=== PATIENT | male | born 1935 | race Caucasian/White ===

== ENCOUNTER 2022-01-20 20:04 | Emergency (ER) | payer MEDICARE, SELFPAY ==
[2022-01-20] VITALS (13 sets, daily range): BP systolic 110–139; BP diastolic 44–118; PULSE 60–83; RESP 17–27; TEMP 37.2; O2SAT 93–100
--- NOTE | ~2022-01-20 | XR_ITS ---
EXAMINATION: XR chest 1V portable Exam Date/Time: 01/20/2022 20:20 CDT HISTORY: cough Comparison: None available. RESULT: Lines, tubes, and devices: Cervical fusion hardware. Intact sternotomy wires. Atrial occlusion devic e. Left chest pacer with intact leads. Lungs and pleura: Ill-defined vascular margins with peripheral reticular opacities. Moderate right p leural effusion. Cardiomediastinal silhouette: Stable cardiomediastinal silhouette. Other: No acute osseous or upper abdominal finding. IMPRESSION: Pulmonary findings likely represent edema. Infection not excluded. Moderate right pleural effusion. Reviewed, dictated and finalized at location K. IMPRESSION: Pulmonary findings likely represent edema. Infection not excluded. Moderate rig ht pleural effusion.
--- NOTE | ~2022-01-20 | XR_ITS ---
EXAM: XR knee LT 3V DATE: 01/20/2022 20:29 HISTORY: pain . COMPARISON: None available. FINDINGS: Decreased mineralization. No fracture or dislocation. No lytic or blastic lesion. Tricompa rtmental osteoarthritis, severe in the medial compartment. No erosion or periosteal change. Surgical clips likely from vein harvesting. Diffuse vascular calcification. IMPRESSION: No acute osseous finding in the left knee. Reviewed, dictated and finalized at location K.
--- NOTE | ~2022-01-20 | XR_ITS ---
EXAMINATION: XR foot LT min 3V DATE: 01/20/2022 22:01 INDICATION: Left foot pain TECHNIQUE: Dorsoplantar, lateral, and 2 oblique views of the left foot were obtained. COMPARISON: None. FINDINGS: There is no fracture, dislocation, or subluxation. Calcified atherosclerosis is noted. Ther e is a plantar calcaneal enthesophyte. IMPRESSION: 1. No acute osseous abnormality. Reviewed, dictated and finalized at location A.
--- NOTE | 2022-01-20 20:12 | ECG_ITS ---
Measurements Intervals [place] Rate: 60 P: 60 WI: 174 QRS: 78 QRSD: 173 T: 102 QT: 497 QTc: 500 Interpretive Statements ELECTRONIC AV SEQUENTIAL PACEMAKER ABNORMAL RHYTHM ECG NO PREVIOUS ECG AVAILABLE FOR COMPARISON Electronically Signed On 01-21-2022 7:12:19 CDT by Misha Babb M.D.
--- NOTE | 2022-01-20 20:16 | ED.GENADULT ---
HPI - General Adult General Chief complaint: Weakness Stated complaint: Covid + today weakness Time Seen by Provider: 01/20/22 20:11 History of Present Illness HPI narrative: Patient is an 86-year-old gentleman who presents to the emergency department with chief complaint of weakness. Patient states that he has normal knee pain in the left knee and he has no gave out and he fell to the ground. Patient denies striking his head denies loss of consciousness reports that he could not get up afterwards and EMS was called. Patient incidentally today was tested for COVID-19 and was positive for COVID-19. Patient denies chest pain denies shortness of breath denies vomiting diarrhea. Related Data Allergies Allergy/AdvReac Type Severity Reaction Status Date / Time Penicillins Allergy Rash Verified 01/20/22 20:28 Review of Systems Review of Systems: A 10 system review of systems was completed on the patient and is negative except for what is stated in the HPI. Nursing and ancillary documentation was reviewed. PMFSH Comments History of cardiac bypass, history of pacemaker, right knee replacement History of cardiac disease Exam Narrative: GENERAL: Well-appearing, well-nourished, and in no acute distress. HEAD: Normocephalic, atraumatic. EYES: PERRLA and EOMI. ENT: Nares clear, no rhinorrhea or epistaxis. Mucous membranes moist. NECK: Supple. CHEST: Clear to auscultation. No respiratory distress. HEART: Regular rate and rhythm. No murmur heard. Normal peripheral pulses. ABDOMEN: Soft, nontender, nondistended, normal active bowel sounds. EXTREMITIES: Normal range of motion. No edema. SKIN: Warm, dry, no rash. NEURO: No focal deficits. Alert and oriented x3. PSYCH: Normal mood and affect. Course Vital Signs Vital signs: Vital Signs Temperature 37.2 C 01/20/22 20:09 Pulse Rate 76 01/20/22 20:09 Respiratory Rate 23 H 01/20/22 20:09 Blood Pressure 135/55 L 01/20/22 20:09 Pulse Oximetry 97 01/20/22 20:09 Oxygen Delivery Room Air 01/20/22 20:09 Temperature 37.2 C 01/20/22 20:09 Pulse Rate 72 01/20/22 22:07 Respiratory Rate 18 01/20/22 22:07 Blood Pressure 110/70 01/20/22 22:07 Pulse Oximetry 98 01/20/22 22:07 Oxygen Delivery Room Air 01/20/22 20:09 Medical Decision Making Vital Signs Vital Signs: Vital Signs Temperature 37.2 C 01/20/22 20:09 Pulse Rate 76 01/20/22 20:09 Respiratory Rate 23 H 01/20/22 20:09 Blood Pressure 135/55 L 01/20/22 20:09 Pulse Oximetry 97 01/20/22 20:09 Oxygen Delivery Room Air 01/20/22 20:09 Temperature 37.2 C 01/20/22 20:09 Pulse Rate 72 01/20/22 22:07 Respiratory Rate 18 01/20/22 22:07 Blood Pressure 110/70 01/20/22 22:07 Pulse Oximetry 98 01/20/22 22:07 Oxygen Delivery Room Air 01/20/22 20:09 Lab Data Result diagrams: 01/20/22 20:40 01/20/22 20:40 Labs: Lab Results 01/20/22 01/20/22 01/20/22 Range/Units 20:35 20:40 20:40 WBC 7.4 (4.5-10.0) K/mm3 RBC 3.34 L (4.6-6.20) M/mm3 Hgb 10.1 L (14.0-18.0) g/dL Hct 30.9 L (42.0-52.0) % MCV 92.5 (80-100) fl MCH 30.2 (26-34) pg MCHC 32.7 (32-36) g/dl RDW 17.3 H (11.5-14.5) % Plt Count 184 (150-375) k/mm3 MPV 9.4 (7.4-10.4) fl Immature Gran % (Auto) 0.3 (0-0.5) % Neut % (Auto) 75.6 H (45.5-73.1) % Lymph % (Auto) 6.7 L (18.3-44.2) % Jenkins % (Auto) 14.7 H (2.6-8.5) % Eos % (Auto) 2.0 (0-4.4) % Baso % (Auto) 0.7 (0.2-1.2) % Lymph # (Auto) 0.49 L (0.9-3.2) K/mm3 Jenkins # (Auto) 1.1 H (0.1-0.6) K/mm3 Eos # (Auto) 0.2 (0-0.3) K/mm3 Baso # (Auto) 0.1 (0.0-0.1) K/mm3 Abs Immat Gran (auto) 0.02 (0.00-0.031) K/mm3 Absolute Neuts (auto) 5.6 (1.3-6.7) K/mm3 Absolute Nucleated RBC 0.0 (0.0-0.012) K/mm3 Nucleated RBC % 0.0 (0.0-0.2) % Sodium (137-145) mmol/L Potassium (3.4-5.0) mmol/L Chloride (98-
[2022-01-20] MEDS: SODIUM CHLORIDE 0.9% IV 1,000 ML 250 ML IV CONT (20:56)
[2022-01-20 21:01] LABS: Appearance Urine Clear (Clear); Basophils Absolute Auto 0.1 K/mm3 (0.0-0.1); Basophils Percent Auto 0.7 % (0.2-1.2); Bilirubin Urine Negative (Negative); Blood Urine Negative (Negative); Color Urine Yellow (Yellow); Eosinophils Absolute Auto 0.2 K/mm3 (0-0.3); Glucose Urine UA Negative (Negative); Hematocrit 30.9 % (42.0-52.0); Hemoglobin 10.1 g/dL (14.0-18.0); Immature Granulocyte Absolute 0.02 K/mm3 (0.00-0.031); Immature Granulocyte Percent A 0.3 % (0-0.5); Ketones Urine Negative (Negative); Leukocyte Esterase Ur Negative LEU/UL (Negative); Lymphocytes Absolute Auto 0.49 K/mm3 (0.9-3.2); Lymphocytes Percent Auto 6.7 % (18.3-44.2); Mean Corpuscular HGB Conc 32.7 g/dl (32-36); Mean Corpuscular Hemoglobin 30.2 pg (26-34); Mean Corpuscular Volume 92.5 fl (80-100); Mean Platelet Volume 9.4 fl (7.4-10.4); Monocytes Absolute Auto 1.1 K/mm3 (0.1-0.6); Monocytes Percent Auto 14.7 % (2.6-8.5); Neutrophils Absolute Auto 5.6 K/mm3 (1.3-6.7); Neutrophils Percent Auto 75.6 % (45.5-73.1); Nitrate Urine Negative (Negative); Platelet Count Result 184 k/mm3 (150-375); Protein Urine Negative (Negative); Red Blood Count 3.34 M/mm3 (4.6-6.20); Red Cell Distribution Width 17.3 % (11.5-14.5); Urobilinogen Urine 0.2 mg/dL (<2.0); White Blood Count 7.4 K/mm3 (4.5-10.0); pH Urine 5.5 (5.0-9.0)
[2022-01-20 21:06] LABS: RBC Urine 0-2 /hpf (0-2); WBC Urine 0-3 /hpf
[2022-01-20 21:07] LABS: Add Urine Microscopic? NO
[2022-01-20 21:10] LABS: Alanine Aminotransferase 18 U/L (6-50); Albumin Level 3.8 g/dL (3.5-5.1); Alkaline Phosphatase 84 U/L (38-126); Anion Gap 7 mmol/L (8-16); Aspartate Amino Transferase 25 U/L (17-59); Bilirubin,Total 0.4 mg/dL (0.2-1.3); Blood Urea Nitrogen 23 mg/dL (9-20); Calcium 8.1 mg/dL (8.4-10.2); Carbon Dioxide 25 mmol/L (22-30); Chloride 100 mmol/L (98-107); Estimated CRCL calculation 42 ml/min; Estimated Glomerular Filt Rate 53; Glucose 113 mg/dL (65-110); Magnesium 1.7 mg/dL (1.6-2.3); Potassium 4.6 mmol/L (3.4-5.0); Sodium 132 mmol/L (137-145)
[2022-01-20 21:11] LABS: Lactic Acid Reflex 1.4 mmol/L (0.7-2.0)
--- NOTE | 2022-01-20 21:54 | PC.NURSE ---
Pt able to get up out of bed unassisted using walker. Denies feeling lightheaded or dizziness. No s/s of distress, no complaints. ED MD Camejo notified.
[2022-01-20 21:57] LABS: NT Pro B Type Natriuretic Pept 4730 pg/mL (5-100); Troponin I < 0.012 ng/mL (0.000-0.034)
== END 2022-01-20 23:00 | disposition home or self-care (01) ==
PROVIDERS: Emergency Provider Emergency Medicine
DX: U07.1 COVID-19 (principal); I51.9 Heart disease, unspecified; Z96.651 Presence of right artificial knee joint; Z95.0 Presence of cardiac pacemaker; R94.31 Abnormal electrocardiogram [ECG] [EKG]; Z95.1 Presence of aortocoronary bypass graft; W18.39XA Other fall on same level, initial encounter
CPT/HCPCS: 36415; 51701; 71045; 73562; 73630; 80053; 81003; 83605; 83735; 83880; 84484; 85025; 93005; 96360; 96361; 99284; J7030

== ENCOUNTER 2022-01-24 16:18 | Outpatient (CLI) | payer MEDICARE, SELFPAY ==
[2022-01-24 16:47] LABS: Hematocrit 32.5 % (42.0-52.0); Hemoglobin 10.9 g/dL (14.0-18.0); Mean Corpuscular HGB Conc 33.5 g/dl (32-36); Mean Corpuscular Hemoglobin 30.5 pg (26-34); Mean Platelet Volume 9.7 fl (7.4-10.4); Platelet Count Result 142 k/mm3 (150-375); Red Blood Count 3.57 M/mm3 (4.6-6.20); Red Cell Distribution Width 17.2 % (11.5-14.5); White Blood Count 4.2 K/mm3 (4.5-10.0)
[2022-01-24 16:55] LABS: Anion Gap 8 mmol/L (8-16); Blood Urea Nitrogen 22 mg/dL (9-20); Calcium 7.9 mg/dL (8.4-10.2); Carbon Dioxide 28 mmol/L (22-30); Chloride 99 mmol/L (98-107); Estimated Glomerular Filt Rate 53; Glucose 77 mg/dL (65-110); Potassium 4.3 mmol/L (3.4-5.0); Sodium 135 mmol/L (137-145)
== END 2022-01-24 16:19 | disposition home or self-care (01) ==
LOC: ANHLAB 16:22
DX: D64.9 Anemia, unspecified (principal)
CPT/HCPCS: 36415; 80048; 85027

== ENCOUNTER 2022-02-03 10:56 | Outpatient (CLI) | payer MEDICARE, SELFPAY ==
[2022-02-03 11:33] LABS: Hematocrit 33.7 % (42.0-52.0); Hemoglobin 10.7 g/dL (14.0-18.0); Mean Corpuscular HGB Conc 31.8 g/dl (32-36); Mean Corpuscular Hemoglobin 29.3 pg (26-34); Mean Corpuscular Volume 92.3 fl (80-100); Mean Platelet Volume 9.9 fl (7.4-10.4); Platelet Count Result 212 k/mm3 (150-375); Red Blood Count 3.65 M/mm3 (4.6-6.20); White Blood Count 6.5 K/mm3 (4.5-10.0)
[2022-02-03 11:46] LABS: INR 1.9; Prothrombin Time 20.8 Seconds (11.1-14.7)
== END 2022-02-03 10:57 | disposition home or self-care (01) ==
LOC: ANHLAB 11:02
DX: I48.92 Unspecified atrial flutter (principal); I48.91 Unspecified atrial fibrillation
CPT/HCPCS: 36415; 85027; 85610

== ENCOUNTER 2022-02-20 13:17 | Outpatient (CLI) | payer MEDICARE, SELFPAY ==
[2022-02-20 13:46] LABS: Anion Gap 8 mmol/L (8-16); Blood Urea Nitrogen 17 mg/dL (9-20); Calcium 8.1 mg/dL (8.4-10.2); Carbon Dioxide 27 mmol/L (22-30); Chloride 104 mmol/L (98-107); Estimated Glomerular Filt Rate 58; Glucose 71 mg/dL (65-110); Sodium 139 mmol/L (137-145)
== END 2022-02-20 13:18 | disposition home or self-care (01) ==
DX: I50.32 Chronic diastolic (congestive) heart failure (principal)
CPT/HCPCS: 36415; 80048

== ENCOUNTER 2022-03-06 07:54 | Outpatient (CLI) | payer MEDICARE, SELFPAY ==
[2022-03-06 09:43] LABS: Anion Gap 11 mmol/L (8-16); Blood Urea Nitrogen 22 mg/dL (9-20); Carbon Dioxide 28 mmol/L (22-30); Chloride 100 mmol/L (98-107); Estimated Glomerular Filt Rate 53; Glucose 93 mg/dL (65-110); Potassium 3.8 mmol/L (3.4-5.0); Sodium 139 mmol/L (137-145)
== END 2022-03-06 07:55 | disposition home or self-care (01) ==
LOC: ANHLAB 08:01
DX: I50.32 Chronic diastolic (congestive) heart failure (principal)
CPT/HCPCS: 36415; 80048

== ENCOUNTER 2022-04-05 10:55 | Outpatient (CLI) | payer MEDICARE, SELFPAY ==
[2022-04-05 11:49] LABS: Hematocrit 32.6 % (42.0-52.0); Hemoglobin 10.7 g/dL (14.0-18.0); Mean Corpuscular HGB Conc 32.8 g/dl (32-36); Mean Corpuscular Hemoglobin 30.7 pg (26-34); Mean Corpuscular Volume 93.7 fl (80-100); Mean Platelet Volume 9.1 fl (7.4-10.4); Platelet Count Result 218 k/mm3 (150-375); Red Blood Count 3.48 M/mm3 (4.6-6.20); Red Cell Distribution Width 15.9 % (11.5-14.5); White Blood Count 8.6 K/mm3 (4.5-10.0)
== END 2022-04-05 10:56 | disposition home or self-care (01) ==
DX: D64.9 Anemia, unspecified (principal); E03.9 Hypothyroidism, unspecified
CPT/HCPCS: 36415; 84443; 85027

== ENCOUNTER 2022-04-26 11:56 | Outpatient (CLI) | payer MEDICARE, SELFPAY ==
[2022-04-26 12:34] LABS: Prothrombin Time 21.8 Seconds (11.1-14.7)
== END 2022-04-26 11:57 | disposition home or self-care (01) ==
DX: Z98.890 Other specified postprocedural states (principal); Z95.818 Presence of other cardiac implants and grafts
CPT/HCPCS: 36415; 85610

== ENCOUNTER 2022-05-14 10:50 | Emergency (ER) | payer MEDICARE, SELFPAY ==
--- NOTE | ~2022-05-14 | CT_ITS ---
EXAMINATION: CT brain wo con INDICATION: Headache COMPARISON: None TECHNIQUE: Standard unenhanced head CT. The dose-length product (DLP) was 605.33 mGy-cm. The mA was a djusted according to patient size. Iterative reconstruction technique was employed. FINDINGS: There is no acute intraparenchymal hemorrhage. No evidence of mass lesion. No evidence of a cute infarction. There is moderate periventricular and subcortical hypodensity probably related to sm all vessel ischemic disease. There is moderate prominence of the sulci and ventricles related to cere bral atrophy. Intracranial calcified cerebral atherosclerosis is noted. There are no extra-axial marichuy ections. There is no mass effect or midline shift. Changes in the globes are likely from ocular lens surgery. There is mild mucosal thickening of the paranasal sinuses. IMPRESSION: 1. No acute intracranial abnormality. 2. Age related findings. Reviewed, dictated and finalized at location A.
[2022-05-14 10:57] VITALS: BP 125/44; PULSE 86; RESP 18; TEMP 36.1; O2SAT 100
[2022-05-14 11:13] LABS: Basophils Absolute Auto 0.1 K/mm3 (0.0-0.1); Eosinophils Absolute Auto 0.5 K/mm3 (0-0.3); Eosinophils Percent Auto 5.9 % (0-4.4); Hemoglobin 10.7 g/dL (14.0-18.0); Immature Granulocyte Absolute 0.03 K/mm3 (0.00-0.031); Immature Granulocyte Percent A 0.4 % (0-0.5); Lymphocytes Absolute Auto 1.58 K/mm3 (0.9-3.2); Lymphocytes Percent Auto 19.8 % (18.3-44.2); Mean Corpuscular HGB Conc 33.4 g/dl (32-36); Mean Corpuscular Hemoglobin 31.6 pg (26-34); Mean Corpuscular Volume 94.4 fl (80-100); Mean Platelet Volume 8.7 fl (7.4-10.4); Monocytes Absolute Auto 0.8 K/mm3 (0.1-0.6); Monocytes Percent Auto 9.8 % (2.6-8.5); Neutrophils Percent Auto 63.1 % (45.5-73.1); Platelet Count Result 189 k/mm3 (150-375); Red Blood Count 3.39 M/mm3 (4.6-6.20); Red Cell Distribution Width 15.2 % (11.5-14.5)
[2022-05-14 11:24] LABS: Alanine Aminotransferase 28 U/L (6-50); Alkaline Phosphatase 101 U/L (38-126); Anion Gap 9 mmol/L (8-16); Aspartate Amino Transferase 29 U/L (17-59); Bilirubin,Total 0.4 mg/dL (0.2-1.3); Blood Urea Nitrogen 13 mg/dL (9-20); Calcium 8.2 mg/dL (8.4-10.2); Carbon Dioxide 27 mmol/L (22-30); Chloride 98 mmol/L (98-107); Estimated CRCL calculation 38 ml/min; Estimated Glomerular Filt Rate 52; Glucose 124 mg/dL (65-110); Potassium 3.8 mmol/L (3.4-5.0); Sodium 134 mmol/L (137-145)
[2022-05-14 11:28] LABS: Prothrombin Time 52.3 Seconds (11.1-14.7)
[2022-05-14 11:29] LABS: Partial Thromboplastin Time 48.7 SECONDS (22.3-36.8)
[2022-05-14 11:54] LABS: INR 6.1
--- NOTE | 2022-05-14 11:55 | ED.RECABL ---
HPI - Recheck/Abnormal Lab/Rx General Chief Complaint: Recheck/Abnormal Lab/Rx Stated Complaint: PCP called w/ high INR results Time Seen by Provider: 05/14/22 11:55 Source: patient Mode of arrival: ambulatory Limitations: no limitations History of Present Illness HPI narrative: Patient is an 87 yo male with a history of coronary artery disease, intracranial hemorrhage, three-vessel CABG, chronic anticoagulation, presenting to the ER for evaluation of supratherapeutic INR found on testing at home. Patient states that he has been on warfarin therapy since his CABG and pacemaker placement. INR this morning was greater than 8. Patient's primary care physician referred him for evaluation. No recent dosage changes to his medications. Patient denies any hematemesis, active bleeding. No melanotic stool. Denies headache, vision changes. Related Data Allergies Allergy/AdvReac Type Severity Reaction Status Date / Time Penicillins Allergy Rash Verified 05/14/22 11:15 Review of Systems Review of Systems: CONSTITUTIONAL: Denies fever, chills, or sweats. EYES: Denies visual changes, redness, or discharge. ENT: Denies rhinorrhea, congestion, sore throat, or otalgia. CARDIOVASCULAR: Denies chest pain, palpitations, or edema. RESPIRATORY: Denies cough or dyspnea. GASTROINTESTINAL: Denies abdominal pain, nausea, vomiting, or diarrhea. GENITOURINARY: Denies dysuria or hematuria. SKIN: Denies rash or itching. MUSCULOSKELETAL: Denies back pain, joint pain, or myalgia. NEUROLOGIC: Denies headache, numbness, or weakness. [facility] Past Medical History Medical History (Updated 05/14/22 @ 14:36 by Chely Harris MD) COVID-19 Surgical History Surgical History (Updated 05/14/22 @ 12:17 by Chely Harris MD) Hx of CABG Exam Narrative: GENERAL: Awake, alert, conversant HEAD: Normocephalic, atraumatic. EYES: PERRLA and EOMI. ENT: Nares clear, no rhinorrhea or epistaxis. Mucous membranes moist. NECK: Supple. CHEST: No respiratory distress, breathing even and non labored HEART: Regular rate, sinus rhythm ABDOMEN:Non distended, non tender EXTREMITIES: Normal range of motion. No edema. SKIN: Warm, dry, no rash. NEURO:No focal deficits. Alert and oriented x3 Course Vital Signs Vital signs: Vital Signs Temperature 36.1 C L 05/14/22 10:57 Pulse Rate 86 05/14/22 10:57 Respiratory Rate 18 05/14/22 10:57 Blood Pressure 125/44 L 05/14/22 10:57 Pulse Oximetry 100 05/14/22 10:57 Oxygen Delivery Room Air 05/14/22 10:57 Temperature 36.1 C L 05/14/22 10:57 Pulse Rate 86 05/14/22 10:57 Respiratory Rate 18 05/14/22 10:57 Blood Pressure 125/44 L 05/14/22 10:57 Pulse Oximetry 100 05/14/22 10:57 Oxygen Delivery Room Air 05/14/22 10:57 MDM - Recheck/Abnormal Lab/Rx MDM Narrative Medical decision making narrative: Patient presenting for evaluation of supratherapeutic INR found on outpatient testing. This morning, greater than 8. Recheck here today is 6.5. Patient not any signs of active bleeding. Patient did have a mild headache this morning so I did obtain a CT of the head which was negative for intracranial hemorrhage. Patient without epistaxis or gingival bleeding. Mild anemia which is at baseline when compared to previous. No thrombocytopenia. No ecchymosis or petechiae. Patient was monitored and given oral vitamin K per protocol. Plan for close outpatient follow-up and I did discuss with his primary care physician that he will have recheck INR levels tomorrow. He was told to hold his warfarin tonight. Plan communicated with daughter and patient, patient then discharged home. Differential Diagnosis Differential diagnosis: Likely warfarin-induced coagulopathy Lab Data Result diagrams: 05/14/22 11:04 05/14/22 11:04 Labs: Lab Results 05/14/22 05/14/22 05/14/22 Range/Units 11:04 11:04 11:04 WBC 8.0 (4.5-10.0) K/mm3 RBC 3.39 L (4.6-6.20) M/mm3
[2022-05-14] MEDS: PHYTONADIONE 5 MG TABLET PO (12:47)
[2022-05-14 14:39] VITALS: BP 142/86; PULSE 88; RESP 16; O2SAT 98
== END 2022-05-14 14:42 | disposition home or self-care (01) ==
PROVIDERS: Emergency Provider Emergency Medicine
DX: R79.1 Abnormal coagulation profile (principal); I25.10 Atherosclerotic heart disease of native coronary artery without angina pectoris; Z86.16 Personal history of COVID-19; Z95.1 Presence of aortocoronary bypass graft; Z79.01 Long term (current) use of anticoagulants
CPT/HCPCS: 36415; 70450; 80053; 85025; 85610; 85730; 99284; A9270

== ENCOUNTER 2022-05-25 12:35 | Outpatient (CLI) | payer MEDICARE, SELFPAY ==
--- NOTE | ~2022-05-25 | US_ITS ---
US pelvic limited 05/25/2022 13:20 Indication: Urinary hesitancy. Procedure: High-resolution ultrasound of the pelvis using transabdominal technique Comparison: No prior studies for comparison. Findings: Bladder wall is normal without thickening or focal mass. Prevoid volume is 1085 cc. Post vo id volume is 105 cc. Impression: 1: Moderate post void residual measuring 105 cc. Reviewed, dictated and finalized at location B. Impression: 1: Moderate post void residual measuring 105 cc.
== END 2022-05-25 12:36 | disposition home or self-care (01) ==
DX: R39.11 Hesitancy of micturition (principal)
CPT/HCPCS: 76857

== ENCOUNTER 2022-05-31 08:31 | Outpatient (CLI) | payer MEDICARE, SELFPAY ==
[2022-05-31 09:51] LABS: Anion Gap 8 mmol/L (8-16); Blood Urea Nitrogen 13 mg/dL (9-20); Calcium 8.3 mg/dL (8.4-10.2); Carbon Dioxide 29 mmol/L (22-30); Chloride 95 mmol/L (98-107); Estimated Glomerular Filt Rate 58; Glucose 93 mg/dL (65-110); Potassium 3.6 mmol/L (3.4-5.0); Sodium 132 mmol/L (137-145)
== END 2022-05-31 08:32 | disposition home or self-care (01) ==
LOC: ANHLAB 08:41
DX: I50.9 Heart failure, unspecified (principal)
CPT/HCPCS: 36415; 80048

== ENCOUNTER 2022-06-18 17:41 | Emergency (ER) | payer MEDICARE, SELFPAY ==
--- NOTE | ~2022-06-18 | CT_ITS ---
EXAMINATION: CT cervical spine wo con DATE: 06/18/2022 17:58 INDICATION: fall, head injury TECHNIQUE: Computed tomography (CT) of the cervical spine was performed without intravenous contrast. Automated exposure control and iterative reconstruction technique were employed. The dose-length pro duct was 471.91 mGy-cm. COMPARISON: None FINDINGS: Vertebral Body Alignment: Intact. Reversed cervical lordosis. Multilevel trace listheses, presumably on a degenerative basis. Craniocervical and atlantoaxial alignment: Severe degenerative change. Alignment intact. Osseous structures/fracture: Intact and uncomplicated appearing anterior fusion hardware spanning C5- C7. Interbody plugs remain in good position. No evidence of a lytic or blastic process in the visuali zed spine. No evidence of acute fracture. C2-3 facet and vertebral body fusion. Cervical soft tissues: The paraspinal soft tissues planes are maintained. Right apical pleural thicke rubio and calcification. Degenerative changes: Multilevel degenerative disc disease. Multilevel severe facet arthropathy. IMPRESSION: No acute fracture or traumatic malalignment in the cervical spine. Reviewed, dictated and finalized at location K. 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
--- NOTE | ~2022-06-18 | CT_ITS ---
EXAMINATION: CT brain wo con DATE: 06/18/2022 17:57 INDICATION: fall, head injury, hx of brain bleed . TECHNIQUE: Computed tomography (CT) of the head was performed without intravenous contrast. The mA wa s adjusted according to patient size. Iterative reconstruction technique was employed. The dose-lengt h product was 605.33 mGy-cm. COMPARISON: None FINDINGS: No acute intracranial hemorrhage or extra-axial fluid collection. No hydrocephalus, mass, or herniation. No acute ischemic infarct. Unremarkable dural venous sinus attenuation. No acute osseous abnormality. Right parietal scalp laceration. The aerated spaces are clear. Moderate atrophy and chronic white matter change. Atherosclerotic intracranial calcification. Bilater al lens replacements. IMPRESSION: No acute intracranial process. Reviewed, dictated and finalized at location K. 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
[2022-06-18 18:48] VITALS: BP 129/75; PULSE 75; RESP 18; TEMP 36.8; O2SAT 99
--- NOTE | 2022-06-18 19:11 | ED.FALL ---
HPI - Fall General Chief Complaint: Fall Stated Complaint: fall, head injury Time Seen by Provider: 06/18/22 18:57 History of Present Illness HPI Narrative: 87-year-old male history of coronary artery disease presents emergency room for evaluation of a head injury a following mechanical fall from ground-level. Patient states he was time to step on the sidewalk when he missed a step and fell. Patient states that he landed on his right shoulder right hip, and striking his head on the ground. Patient denies LOC or altered mental status. Patient denies nausea or vomiting. Denies somnolence. Denies hearing or vision changes. Related Data Home Medications Medication Instructions Recorded Confirmed amiodarone 200 mg tablet 200 mg PO DAILY 05/22/22 05/22/22 ascorbic acid (vitamin C) 100 mg 100 mg PO DAILY 05/22/22 05/22/22 tablet (Vitamin C) aspirin 81 mg capsule 81 mg PO DAILY 05/22/22 05/22/22 atorvastatin 40 mg tablet 40 mg PO DAILY 05/22/22 05/22/22 bisacodyl 5 mg tablet,delayed 5 mg PO HS 05/22/22 05/22/22 release (Dulcolax (bisacodyl)) capsaicin 0.025 % topical cream 1 applic topical DAILY 05/22/22 05/22/22 famotidine 20 mg tablet 20 mg PO BID 05/22/22 05/22/22 ferrous sulfate 325 mg (65 mg 325 mg PO BID 05/22/22 05/22/22 iron) tablet fluticasone propionate 50 2 spray intranasal DAILY 05/22/22 05/22/22 mcg/actuation nasal spray,suspension (Flonase Allergy Relief) furosemide 40 mg tablet 40 mg PO DAILY PRN Edema 05/22/22 05/22/22 furosemide 40 mg tablet 60 mg PO DAILY 05/22/22 05/22/22 levothyroxine 50 mcg tablet 50 mcg PO DAILY 05/22/22 05/22/22 metoprolol succinate 25 mg 25 mg PO DAILY 05/22/22 05/22/22 tablet,extended release 24 hr montelukast 10 mg tablet 10 mg PO DAILY 05/22/22 05/22/22 pantoprazole 40 mg tablet,delayed 40 mg PO QAM 05/22/22 05/22/22 release spironolactone 25 mg tablet 12.5 mg PO DAILY 05/22/22 05/22/22 tamsulosin 0.4 mg capsule 0.4 mg PO DAILY 05/22/22 05/22/22 Allergies Allergy/AdvReac Type Severity Reaction Status Date / Time Penicillins Allergy Rash Verified 05/14/22 11:15 Review of Systems Review of Systems: CONSTITUTIONAL: Denies fever, chills, or sweats. EYES: Denies visual changes, redness, or discharge. ENT: Denies rhinorrhea, congestion, sore throat, or otalgia. CARDIOVASCULAR: Denies chest pain, palpitations, or edema. RESPIRATORY: Denies cough or dyspnea. GASTROINTESTINAL: Denies abdominal pain, nausea, vomiting, or diarrhea. GENITOURINARY: Denies dysuria or hematuria. SKIN: Denies rash or itching. MUSCULOSKELETAL: Denies back pain, joint pain, or myalgia. NEUROLOGIC: Denies headache, numbness, dizziness, or weakness. PSYCHIATRIC: Denies anxiety or depression. [facility] Past Medical History Medical History COVID-19 Surgical History Surgical History Hx of CABG Family History Family History Father Heart disease Mother Colon cancer Social History Social History Smoking packs per day: 1 Smoking cigarettes per day: 20.0 Years smoked: 15 Smoking pack-years: 15.00 Smoking status: Former smoker Tobacco type: cigarettes, pipe and cigars Exam Narrative: GENERAL: Well-appearing, well-nourished, no physical limitations, and in no acute distress. HEAD: Normocephalic, small hematoma to right parietal scalp EYES: Conjunctivae normal, PERRLA and EOMI. ENT: External nose normal, Nares clear, no rhinorrhea or epistaxis. Mucous membranes moist. Oropharynx without tonsillar hypertrophy exudate or other lesions. External ears normal, bilateral TMs normal bilaterally CHEST: Clear to auscultation. No respiratory distress. No wheezes rales or rhonchi. HEART: Regular rate and rhythm. No murmur heard. Normal peripheral pulses. ABDOMEN: Sof
[2022-06-18 19:35] VITALS: BP 125/80; PULSE 72; RESP 16; TEMP 36.8; O2SAT 98
== END 2022-06-18 19:35 | disposition home or self-care (01) ==
LOC: ANHED 19:37
PROVIDERS: Emergency Provider Nurse Practitioner Family
DX: S09.90XA Unspecified injury of head, initial encounter (principal); I25.10 Atherosclerotic heart disease of native coronary artery without angina pectoris; Z79.82 Long term (current) use of aspirin; Z86.16 Personal history of COVID-19; Z95.1 Presence of aortocoronary bypass graft; Z87.891 Personal history of nicotine dependence; W18.39XA Other fall on same level, initial encounter
CPT/HCPCS: 70450; 72125; 99284

== ENCOUNTER 2022-07-09 10:27 | Outpatient (CLI) | payer MEDICARE, SELFPAY ==
[2022-07-09 11:29] LABS: Anion Gap 4 mmol/L (8-16); Blood Urea Nitrogen 16 mg/dL (9-20); Calcium 8.7 mg/dL (8.4-10.2); Carbon Dioxide 30 mmol/L (22-30); Chloride 94 mmol/L (98-107); Estimated Glomerular Filt Rate 58; Glucose 94 mg/dL (65-110); Sodium 128 mmol/L (137-145)
[2022-07-09 11:36] LABS: NT Pro B Type Natriuretic Pept 1900 pg/mL (5-100)
== END 2022-07-09 10:28 | disposition home or self-care (01) ==
LOC: ANHLAB 10:39
DX: I48.0 Paroxysmal atrial fibrillation (principal); I11.0 Hypertensive heart disease with heart failure
CPT/HCPCS: 36415; 80048; 83880

== ENCOUNTER 2022-07-31 13:26 | Outpatient (CLI) | payer MEDICARE, SELFPAY ==
[2022-07-31 14:11] LABS: Anion Gap 7 mmol/L (8-16); Blood Urea Nitrogen 18 mg/dL (9-20); Calcium 8.4 mg/dL (8.4-10.2); Carbon Dioxide 31 mmol/L (22-30); Chloride 93 mmol/L (98-107); Estimated Glomerular Filt Rate 58; Glucose 108 mg/dL (65-110); Potassium 4.2 mmol/L (3.4-5.0); Sodium 131 mmol/L (137-145)
== END 2022-07-31 13:27 | disposition home or self-care (01) ==
PROVIDERS: Visit Provider Internal Medicine
DX: D64.9 Anemia, unspecified (principal)
CPT/HCPCS: 36415; 80048

== ENCOUNTER 2022-08-16 07:15 | Outpatient (RCR) | payer MEDICARE, SELFPAY | END 2022-08-16 10:04 | disposition home or self-care (01) | LOC: ANHCPREHAB 07:15 | DX: Z95.2 Presence of prosthetic heart valve (principal) | CPT/HCPCS: 93798 ==

== ENCOUNTER 2022-12-11 11:11 | Outpatient (RCR) | payer MEDICARE, SELFPAY ==
[2022-09-14 12:29] LABS: Anion Gap 8 mmol/L (8-16); Blood Urea Nitrogen 17 mg/dL (9-20); Calcium 8.3 mg/dL (8.4-10.2); Carbon Dioxide 29 mmol/L (22-30); Chloride 97 mmol/L (98-107); Estimated Glomerular Filt Rate > 60; Glucose 103 mg/dL (65-110); Potassium 3.8 mmol/L (3.4-5.0); Sodium 134 mmol/L (137-145)
[2022-10-11 12:02] LABS: Anion Gap 6 mmol/L (8-16); Blood Urea Nitrogen 21 mg/dL (9-20); Carbon Dioxide 30 mmol/L (22-30); Chloride 99 mmol/L (98-107); Estimated Glomerular Filt Rate > 60; Glucose 102 mg/dL (65-110); Potassium 3.8 mmol/L (3.4-5.0); Sodium 135 mmol/L (137-145)
[2022-12-11 12:25] LABS: Anion Gap 6 mmol/L (8-16); Blood Urea Nitrogen 17 mg/dL (9-20); Calcium 8.5 mg/dL (8.4-10.2); Carbon Dioxide 31 mmol/L (22-30); Chloride 97 mmol/L (98-107); Estimated Glomerular Filt Rate 44; Glucose 143 mg/dL (65-110); Potassium 3.9 mmol/L (3.4-5.0); Sodium 134 mmol/L (137-145)
== END 2022-12-13 23:59 | disposition home or self-care (01) ==
LOC: ANHLAB 11:11
DX: E87.1 Hypo-osmolality and hyponatremia (principal)
CPT/HCPCS: 36415; 80048

== ENCOUNTER 2022-12-11 11:12 | Outpatient (CLI) | payer MEDICARE, SELFPAY ==
[2022-12-11 12:23] LABS: Alanine Aminotransferase 20 U/L (6-50); Albumin Level 3.8 g/dL (3.5-5.1); Alkaline Phosphatase 70 U/L (38-126); Aspartate Amino Transferase 42 U/L (17-59); Bilirubin,Total 0.8 mg/dL (0.2-1.3)
== END 2022-12-11 11:13 | disposition home or self-care (01) ==
DX: I48.91 Unspecified atrial fibrillation (principal)
CPT/HCPCS: 36415; 80048; 80076; 84443

== ENCOUNTER 2023-01-11 09:49 | Outpatient (CLI) | payer MEDICARE, SELFPAY ==
[2023-01-11 10:19] LABS: Hematocrit 34.3 % (42.0-52.0); Hemoglobin 11.4 g/dL (14.0-18.0); Mean Corpuscular HGB Conc 33.2 g/dl (32-36); Mean Corpuscular Hemoglobin 32.9 pg (26-34); Mean Corpuscular Volume 99.1 fl (80-100); Mean Platelet Volume 8.8 fl (7.4-10.4); Platelet Count Result 198 k/mm3 (150-375); Red Blood Count 3.46 M/mm3 (4.6-6.20); Red Cell Distribution Width 14.1 % (11.5-14.5); White Blood Count 8.7 K/mm3 (4.5-10.0)
== END 2023-01-11 09:50 | disposition home or self-care (01) ==
DX: D64.9 Anemia, unspecified (principal)
CPT/HCPCS: 36415; 80048; 85027

== ENCOUNTER 2023-02-12 11:34 | Outpatient (RCR) | payer MEDICARE, SELFPAY ==
[2023-02-12 12:35] LABS: Anion Gap 6 mmol/L (8-16); Blood Urea Nitrogen 22 mg/dL (9-20); Calcium 8.8 mg/dL (8.4-10.2); Carbon Dioxide 33 mmol/L (22-30); Chloride 95 mmol/L (98-107); Estimated Glomerular Filt Rate 48; Glucose 112 mg/dL (65-110); Potassium 4.1 mmol/L (3.4-5.0); Sodium 134 mmol/L (137-145)
== END 2023-05-13 23:59 | disposition home or self-care (01) ==
LOC: ANHLAB 11:34
PROVIDERS: Visit Provider Internal Medicine Nephrology
DX: D64.9 Anemia, unspecified (principal)
CPT/HCPCS: 36415; 80048

== ENCOUNTER 2023-02-14 11:10 | Outpatient (CLI) | payer MEDICARE, SELFPAY ==
[2023-02-14 12:30] LABS: Alanine Aminotransferase 30 U/L (6-50); Aspartate Amino Transferase 51 U/L (17-59)
== END 2023-02-14 11:11 | disposition home or self-care (01) ==
PROVIDERS: Visit Provider Podiatrist Foot & Ankle Surgery
DX: B35.1 Tinea unguium (principal)
CPT/HCPCS: 36415; 84450; 84460

== ENCOUNTER 2023-04-23 13:31 | Inpatient (IN) | payer MEDICARE, SELFPAY ==
[2023-04-23] VITALS (13 sets, daily range): BP systolic 113–140; BP diastolic 48–94; PULSE 60–79; RESP 16–28; TEMP 36.7–37; O2SAT 94–100
--- NOTE | ~2023-04-23 | XR_ITS ---
XR chest 1V portable DATE: 04/23/2023 16:44 INDICATION: Weakness. Covid-positive for one day. TECHNIQUE: Portable AP chest on 04/23/2023 at 1638 hours COMPARISON: 01/20/2022 portable AP chest FINDINGS: Status post sternotomy. Left dual-lead pacemaker with leads in expected position overlying the right atrium and ventricle. There is aortic calcification and unfolding. There is mild infiltrate or atelectasis in the right mid and lower lung zones. Minimal infiltrate or atelectasis in the left lower lobe. Mild blunting of the right costophrenic angle which may indicate small right pleural effusion or pleu ral thickening. No pneumothorax. Status post lower anterior cervical spine surgical fusion. IMPRESSION: Mild infiltrate or atelectasis in the right mid and both lower lung zones Reviewed, dictated and finalized at location A.
--- NOTE | ~2023-04-23 | CT_ITS ---
EXAMINATION: CTA chest PE protocol DATE: 04/23/2023 19:46 INDICATION: sob, covid, elevated dimer TECHNIQUE: Computed tomography angiography (CTA) of the chest was performed with 100 mL Omnipaque-350 intravenous contrast timed to evaluate the pulmonary arteries. Coronal maximum intensity projection 3D-reconstructions were created by the technologist. The dose-length product (DLP) was 590.68 mGy-cm. Automated exposure control and iterative reconstruction technique were employed. COMPARISON: X-ray chest, same date. FINDINGS: Lung parenchyma and airways: Rounded consolidation in the right lower lobe. Minimal left basilar atel ectasis. Pleura: Small volume right pleural fluid collection. Right pleural thickening, enhancement, and calci fication. Thoracic inlet, axillae and chest wall: Left chest pacer. Thoracic aorta: Moderate calcification. Mediastinum: Right hilar lymphadenopathy. Heart and pericardium: Prior CABG. Mild cardiomegaly. Atrial occlusion device. Coronary artery calcifications: Moderate. Upper abdomen: No significant finding. Bones: No acute osseous finding. Pulmonary arteries: Study quality: Mild motion artifact in the left lower lung, overall diagnostic. N o pulmonary emboli detected. IMPRESSION: No CT evidence of acute pulmonary embolus. Right lower lobe consolidation with an imaging appearance consistent with rounded atelectasis. Infect ion/mass not excluded. Right hilar lymphadenopathy. Small right, potentially loculated pleural effusion with pleural thickening, calcification and enhanc ement. Consider empyema in the differential. Reviewed, dictated and finalized at location K. IMPRESSION: No CT evidence of acute pulmonary embolus. Right lower lobe consolidation with an imaging appearance consistent with round ed atelectasis. Infection/mass not excluded. Right hilar lymphadenopathy. Small right, potentially loculated pleural effusion with pleural thickening, ca lcification and enhancement. Consider empyema in the differential.
--- NOTE | 2023-04-23 13:49 | ECG_ITS ---
Measurements Intervals [place] Rate: 60 P: -43 CO: 245 QRS: 74 QRSD: 181 T: 91 QT: 510 QTc: 510 Interpretive Statements ELECTRONIC ATRIAL PACEMAKER ELECTRONIC VENTRICULAR PACEMAKER BASELINE ARTIFACT- I, II, AVR NO FURTHER INTERPRETATION IS POSSIBLE ATYPICAL ECG COMPARED TO ECG 01/20/2022 21:05:45 NO SIGNIFICANT CHANGES Electronically Signed On 04-23-2023 16:53:08 CDT by Xander Morales D.O.
[2023-04-23 14:04] LABS: Basophils Percent Auto 0.5 % (0.2-1.2); Eosinophils Percent Auto 0.3 % (0-4.4); Hematocrit 33.1 % (42.0-52.0); Hemoglobin 10.8 g/dL (14.0-18.0); Immature Granulocyte Absolute 0.03 K/mm3 (0.00-0.031); Immature Granulocyte Percent A 0.4 % (0-0.5); Lymphocytes Percent Auto 7.9 % (18.3-44.2); Mean Corpuscular HGB Conc 32.6 g/dl (32-36); Mean Corpuscular Volume 98.2 fl (80-100); Mean Platelet Volume 8.8 fl (7.4-10.4); Monocytes Absolute Auto 1.4 K/mm3 (0.1-0.6); Monocytes Percent Auto 18.5 % (2.6-8.5); Neutrophils Absolute Auto 5.5 K/mm3 (1.3-6.7); Neutrophils Percent Auto 72.4 % (45.5-73.1); Platelet Count Result 173 k/mm3 (150-375); Red Blood Count 3.37 M/mm3 (4.6-6.20); Red Cell Distribution Width 14.2 % (11.5-14.5); White Blood Count 7.6 K/mm3 (4.5-10.0)
[2023-04-23 14:16] LABS: Alanine Aminotransferase 29 U/L (6-50); Albumin Level 4.1 g/dL (3.5-5.1); Alkaline Phosphatase 70 U/L (38-126); Anion Gap 8 mmol/L (8-16); Aspartate Amino Transferase 39 U/L (17-59); Bilirubin,Total 0.7 mg/dL (0.2-1.3); Blood Urea Nitrogen 17 mg/dL (9-20); Calcium 8.6 mg/dL (8.4-10.2); Carbon Dioxide 25 mmol/L (22-30); Chloride 97 mmol/L (98-107); Estimated CRCL calculation 40 ml/min; Estimated Glomerular Filt Rate 48; Glucose 119 mg/dL (65-110); Sodium 130 mmol/L (137-145)
[2023-04-23 14:25] LABS: NT Pro B Type Natriuretic Pept 4610 pg/mL (19.9-100)
--- NOTE | 2023-04-23 15:58 | ED.GENADULT ---
HPI - General Adult General Chief complaint: Fall <Alycia Jones November, - Last Filed: 04/23/23 16:08> Stated complaint: sent by PCP for frequent falls <Alycia Jones November, - Last Filed: 04/23/23 16:08> Time Seen by Provider: 04/23/23 15:52 <Alycia Jones November, - Last Filed: 04/23/23 16:08> Source: patient, family and old records reviewed <Shameka Zelaya PA-C - Last Filed: 04/24/23 02:57> Mode of arrival: ambulatory <Shameka Zelaya PA-C - Last Filed: 04/24/23 02:57> Limitations: no limitations <Shameka Zelaya PA-C - Last Filed: 04/24/23 02:57> History of Present Illness HPI narrative: Khanh Randall is a n 88 y/o male who presents today from his PCP office with complaints of nausea/vomiting for 2 days, covid positive today, weight gain of 15 pounds in 1 week, complains of increased SOB no complaints of chest pain. Denies fevers but complains of feeling chills. <Alycia Jones November, Last Filed: 04/23/23 16:08> Khanh Randall is an 88 y/o male who presents today from his PCP office with complaints of nausea/vomiting for 2 days, covid positive today, weight gain of 15 pounds in 1 week, complains of increased SOB no complaints of chest pain. Denies fevers but complains of feeling chills. Patient is an 88-year-old male who presents to the ED with multiple complaints. Patient reports he began feeling ill yesterday and developed nausea and vomiting. He had several episodes of emesis. He also reports increased weakness, chills, fevers, cough, and increased shortness of breath. He was seen by his primary care doctor today and the office. He was then referred here for further evaluation. Patient does admit to feeling increasingly short of breath over the last couple of days. He notes a 15 pound weight gain in the last 1 week. He has history of CHF. He has been increasing his Lasix from 80 mg daily to 100 mg daily over the last 1 week, but it has not improved the weight gain. He feels like the weight is mostly in his abdomen, less so in his legs like it usually is. He denies any chest pain. Denies abdominal pain. <Shameka Zelaya PA-C - Last Filed: 04/24/23 02:57> Related Data Home medications: Home Medications Medication Instructions Recorded Confirmed amiodarone 200 mg tablet 200 mg PO QAM 05/22/22 04/23/23 ascorbic acid (vitamin C) 100 mg 100 mg PO DAILY 05/22/22 04/23/23 tablet (Vitamin C) aspirin 81 mg capsule 81 mg PO QAM 05/22/22 04/23/23 atorvastatin 40 mg tablet 40 mg PO QAM 05/22/22 04/23/23 bisacodyl 5 mg tablet,delayed 5 mg PO HS 05/22/22 04/23/23 release (Dulcolax (bisacodyl)) famotidine 20 mg tablet 20 mg PO BID 05/22/22 04/23/23 ferrous sulfate 325 mg (65 mg 325 mg PO QAM 05/22/22 04/23/23 iron) tablet fluticasone propionate 50 2 spray intranasal DAILY 05/22/22 04/23/23 mcg/actuation nasal spray,suspension (Flonase Allergy Relief) furosemide 40 mg tablet 80 mg PO QAM 05/22/22 04/23/23 levothyroxine 50 mcg tablet 50 mcg PO QAM 05/22/22 04/23/23 metoprolol succinate 25 mg 12.5 mg PO QAM 05/22/22 04/23/23 tablet,extended release 24 hr montelukast 10 mg tablet 10 mg PO QAM 05/22/22 04/23/23 pantoprazole 40 mg tablet,delayed 40 mg PO QAM 05/22/22 04/23/23 release spironolactone 25 mg tablet 12.5 mg PO DAILY 05/22/22 04/23/23 tamsulosin 0.4 mg capsule 0.4 mg PO HS 05/22/22 04/23/23 cholecalciferol (vitamin D3) 50 50 mcg PO QAM 04/23/23 04/23/23 mcg (2,000 unit) capsule (Vitamin D3) clobetasol 0.05 % topical ointment 1 applic topical DAILY 04/23/23 04/23/23 finasteride 5 mg tablet 5 mg PO QAM 04/23/23 04/23/23 furosemide 20 mg tablet 20 mg PO QAM PRN Edema 04/23/23 04/23/23 hydroxyzine HCl 25 mg tablet 25 mg PO BID PRN Anxiety 04/23/23 04/23/23 terbinafine HCl 250 mg tablet 250 mg PO QAM 04/23/23 04/23/23 <Alycia Jones November, LUMBER TYING MACHINE OPERATOR - Last Filed: 04/23/23 16:08> Allergies/adverse reactions: Allergies Allergy/AdvReac Type [place]
[2023-04-23 17:23] LABS: Influenza A QL RT-PCR Negative (Negative); Influenza B QL RT-PCR Negative (Negative); RSV RNA, RT-PCR Negative (Negative); SARS-CoV-2 RNA PCR Positive (Negative)
[2023-04-23] MEDS: FUROSEMIDE INJ 40 MG/4 ML VIAL IV PUSH (18:29)
--- NOTE | 2023-04-23 19:04 | ED.GENADULT ---
HPI - General Adult General Chief complaint: Fall Stated complaint: sent by PCP for frequent falls Time Seen by Provider: 04/23/23 15:52 Source: patient, family and old records reviewed Mode of arrival: ambulatory Limitations: no limitations History of Present Illness HPI narrative: Patient is an 88-year-old male who presents to the ED with multiple complaints. Patient reports he began feeling ill yesterday and developed nausea and vomiting. He had several episodes of emesis. He also reports increased weakness, chills, fevers, cough, and increased shortness of breath. He was seen by his primary care doctor today and the office. He was then referred here for further evaluation. Patient does admit to feeling increasingly short of breath. He notes a 15 pound weight gain in the last 1 week. He has been increasing his Lasix from 80 mg daily to 100 mg daily over the last 1 week, but it has not improved the weight gain. He feels like the weight is mostly in his abdomen, less so in his legs like it usually is. He denies any chest pain. Denies abdominal pain. Related Data Home Medications Medication Instructions Recorded Confirmed amiodarone 200 mg tablet 200 mg PO DAILY 05/22/22 05/22/22 ascorbic acid (vitamin C) 100 mg 100 mg PO DAILY 05/22/22 05/22/22 tablet (Vitamin C) aspirin 81 mg capsule 81 mg PO DAILY 05/22/22 05/22/22 atorvastatin 40 mg tablet 40 mg PO DAILY 05/22/22 05/22/22 bisacodyl 5 mg tablet,delayed 5 mg PO HS 05/22/22 05/22/22 release (Dulcolax (bisacodyl)) capsaicin 0.025 % topical cream 1 applic topical DAILY 05/22/22 05/22/22 famotidine 20 mg tablet 20 mg PO BID 05/22/22 05/22/22 ferrous sulfate 325 mg (65 mg 325 mg PO BID 05/22/22 05/22/22 iron) tablet fluticasone propionate 50 2 spray intranasal DAILY 05/22/22 05/22/22 mcg/actuation nasal spray,suspension (Flonase Allergy Relief) furosemide 40 mg tablet 40 mg PO DAILY PRN Edema 05/22/22 05/22/22 furosemide 40 mg tablet 60 mg PO DAILY 05/22/22 05/22/22 levothyroxine 50 mcg tablet 50 mcg PO DAILY 05/22/22 05/22/22 metoprolol succinate 25 mg 25 mg PO DAILY 05/22/22 05/22/22 tablet,extended release 24 hr montelukast 10 mg tablet 10 mg PO DAILY 05/22/22 05/22/22 pantoprazole 40 mg tablet,delayed 40 mg PO QAM 05/22/22 05/22/22 release spironolactone 25 mg tablet 12.5 mg PO DAILY 05/22/22 05/22/22 tamsulosin 0.4 mg capsule 0.4 mg PO DAILY 05/22/22 05/22/22 Allergies Allergy/AdvReac Type Severity Reaction Status Date / Time Penicillins Allergy Rash Verified 04/23/23 13:32 Review of Systems Review of Systems: CONSTITUTIONAL: Denies fever, chills, or sweats. EYES: Denies visual changes, redness, or discharge. ENT: Denies rhinorrhea, congestion, sore throat, or otalgia. CARDIOVASCULAR: Denies chest pain, palpitations, or edema. RESPIRATORY: Denies cough or dyspnea. GASTROINTESTINAL: Denies abdominal pain, nausea, vomiting, or diarrhea. GENITOURINARY: Denies dysuria or hematuria. SKIN: Denies rash or itching. MUSCULOSKELETAL: Denies back pain, joint pain, or myalgia. NEUROLOGIC: Denies headache, numbness, or weakness. PSYCHIATRIC: Denies anxiety or depression. All systems reviewed & are unremarkable except as noted in HPI and below PMFSH Past Medical History Medical History COVID-19 Surgical History Surgical History Hx of CABG Family History Family History Father Heart disease Mother Colon cancer Social History Social History Smoking packs per day: 1 Smoking cigarettes per day: 20.0 Years smoked: 15 Smoking pack-years: 15.00 Smoking status: Former smoker Tobacco type: cigarettes, pipe and cigars Course Vital Signs Vital signs: Vital Signs Temperature 98.0 F 04/23/23 13:45 Pulse Rate 61
[2023-04-23 19:17] LABS: INR 1.1; Prothrombin Time 15.2 Seconds (11.1-14.7)
[2023-04-23 19:18] LABS: Partial Thromboplastin Time 33.8 SECONDS (22.3-36.8)
[2023-04-23 19:21] LABS: D Dimer 1.17 ug/mL (<0.48)
--- NOTE | 2023-04-23 21:59 | ADMGEN ---
This patient, Khanh Randall, was admitted to Medical Room 347-. Patient/family oriented to hospital policies and general routines including ID bracelet, bed and alarms, visiting hours, pain management, procedures, bathroom and other care routines, personal items, smoking policy, room service/diet, and visiting hours. Information on how to activate the Rapid Response Team has been discussed. Patient/Family are encouraged to report perceived risks to care and to ask questions if they do not understand what they are told or what they should do.
--- NOTE | 2023-04-23 23:12 | PM.IMHP ---
H&P: HPI History of Present Illness Date/Time: 04/23/23 22:30 Chief Complaint: Weakness Narrative: 88-year-old male with a past medical history of AFib, CHF, biventricular pacemaker, essential hypertension, BPH and GERD who presented to the ER from primary care physician's office due to generalized weakness. The patient reports that for the last 2 days he has been feeling generally ill. He had a temperature of 100.9? at home. It was accompanied by nausea and vomiting. He had had decreased oral intake over the last couple of days. He denied any chest pain. He has been having a mild cough with some associated shortness of breath. He denies any chest pain. He is having associated postnasal drip and sore throat. He has been having associated chills. He was tested for COVID at the doctor's office today and found to be positive for COVID. He denied any known ill contacts. He had noticed for the last week that he has been gaining weight. Usually if he gains more than a couple of lb he takes an extra 20 mg of Lasix. Despite taking extra 20 mg of Lasix the patient is still had a 15 lb weight gain this week. He denies eating any salty foods or dietary indiscretions. He usually has lower extremity edema when he has a CHF exacerbation but currently is legs are swollen. However his daughter reported to the ER staff that she felt his abdomen was more distended than the previous. Patient reports that last bowel movement was 2 days ago and was normally formed. He does have difficulty with chronic constipation and takes Dulcolax each night. He usually takes Lasix 80 mg p.o. daily. The patient reports that he is usually able to get up and ambulate with a cane. If he is out and about in the community he will use his scooter. He has become so weak over the last couple of days that he has not been able to stand. He has received his COVID boosters. Review of Systems Review of Systems: 12 systems were reviewed with pertinent positives and negatives per HPI. Except as documented in the HPI, all other systems were reviewed and are negative. [facility] Past Medical History Medical History (Updated 04/23/23 @ 23:59 by Shayy Arriaza DO) Atrial fibrillation BPH (benign prostatic hyperplasia) CHF (congestive heart failure) Reported EF of 50% Chronic constipation Chronic kidney disease, stage II (mild) Coronary artery disease Essential hypertension GERD (gastroesophageal reflux disease) Hyperlipidemia Hypothyroidism Intracranial bleed Iron deficiency anemia Obstructive sleep apnea Type 2 diabetes mellitus Vitamin D deficiency Surgical History Surgical History (Updated 04/23/23 @ 23:53 by Shayy Arriaza DO) Hx of CABG 3 vessel CABG Pacemaker Biventricular pacemaker Status post arthroscopic surgery of right knee Status post cataract extraction of both eyes with insertion of intraocular lens Family History Family History Father Heart disease Mother Colon cancer Social History Social History (Updated 04/23/23 @ 23:43 by Shayy Arriaza DO) Social History: He currently lives with his oldest daughter Rhea. He is . 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 He has 2 daughters and 2 sons. He used to smoke a pack of cigarettes per day for about 30 years but quit smoking over 20 years ago. He also used to smoke about 10 cigars a month. He denies any significant history of alcohol use. He ambulates with a cane. 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
[2023-04-23 23:13] LABS: Troponin I 0.019 ng/mL (0.000-0.034)
[2023-04-24] VITALS (12 sets, daily range): BP systolic 114–132; BP diastolic 56–89; PULSE 60–73; RESP 16–20; TEMP 36.6–36.9; O2SAT 94–99
[2023-04-24 01:22] LABS: Troponin I 0.018 ng/mL (0.000-0.034)
--- NOTE | 2023-04-24 06:00 | ECHO_ITS ---
Patient Info Name: Khanh Randall Age: 88 years : 1935 Gender: Male Ht: 70 in Wt: 206 lbs BSA: 2.17 m2 HR: 70 bpm BP: 125 / 80 mmHg Heart Rhythm: Sinus Rhythm Technical Quality: Good Exam Date: 04/24/2023 11:44 AM Exam Location: [facility] Patient Status: Outpatient Admit Date: 04/23/2023 Staff Ordering Physician: Shameka Zelaya PA-C Attending Provider: Shayy Arriaza DO Referring Physician: Nathalie GAGNON; Exam Type: CA echo dop color flow w con Study Info Indications - CHF EXACERBATION, SOB, COVID Complete two-dimensional, color flow and Doppler transthoracic echocardiogram is performed with contrast to opacify the left ventricle and to improve the deliniation of the left ventricle endocardial borders. Contrast/Agitated Saline Contrast/Ag. Saline: Definity Amount: 3.00 ml Summary 1. Technically difficult study with limited views. Definity contrast administered. 2. Left ventricular chamber dimension is normal. 3. Left ventricular systolic function is normal, estimated at 60-65%. 4. There is mildly increased left ventricular wall thickness. 5. Left ventricular septal wall motion is abnormal with septal motion related to pacing. 6. The left ventricular diastolic function is abnormal. 7. Right atrial chamber dimension is moderately enlarged. 8. Left atrial chamber dimension is moderately enlarged. 9. There is no aortic valve stenosis. Left Ventricle Left ventricular chamber dimension is normal. Left ventricular systolic function is normal, estimated at 60-65%. There is mildly increased left ventricular wall thickness. Left ventricular septal wall motion is abnormal with septal motion related to pacing. The left ventricular diastolic function is abnormal. Technically difficult study with limited views. Definity contrast administered. Right Ventricle Right ventricular chamber dimension is mildly enlarged. Right ventricular systolic function is normal. Linear artifact in right ventricle suggestive of catheter(s), pacemaker lead(s), or ICD lead(s). Left Atria Left atrial chamber dimension is moderately enlarged. Right Atria Right atrial chamber dimension is moderately enlarged. Linear artifact in the right atrium suggestive of catheter(s), pacemaker lead(s), or ICD lead(s). Aortic Valve The aortic valve is not well visualized. There is no aortic valve stenosis. There is no aortic valve regurgitation. Pulmonic Valve The pulmonic valve is not well visualized. Mitral Valve The mitral valve has thickened leaflets. The mitral valve annulus is mildly calcified. Tricuspid Valve The tricuspid valve leaflets are normal. There is moderate tricuspid valve regurgitation. Severe pulmonary hypertension, estimated pulmonary arterial systolic pressure is 68 mmHg. Pericardium/Pleural The pericardium appears normal. There is small pericardial effusion. Aorta The aortic root size at the sinus of Valsalva is normal. There is mild aortic atherosclerosis. Left Ventricular Outflow Tract Name Value Normal LVOT 2D LVOT Diameter 2.01 cm LVOT Doppler LVOT Peak Gradient 2 mmHg LVOT Mean Gradient
[2023-04-24] MEDS: LEVOTHYROXINE SODIUM 50 MCG TABLET PO (06:06)
[2023-04-24] MEDS: BENZOCAINE/MENTHOL (*BKC) 18 EA LOZENGE 1 LOZENGE PO (06:08)
[2023-04-24] MEDS: TERBINAFINE HCL 250 MG TABLET PO (08:38)
[2023-04-24] MEDS: FAMOTIDINE 20 MG TABLET PO ×2 (08:38→16:26)
[2023-04-24] MEDS: ATORVASTATIN 40 MG TABLET PO (08:38)
[2023-04-24] MEDS: METOPROLOL SUCCINATE EXT REL 12.5 MG TABCR PO (08:38)
[2023-04-24] MEDS: FERROUS SULFATE 325 MG TABLET DR BY MOUTH (08:38)
[2023-04-24] MEDS: MONTELUKAST SODIUM 10 MG TABLET PO (08:38)
[2023-04-24] MEDS: ASPIRIN 81 MG CHEWABLE TABLET PO (08:38)
[2023-04-24] MEDS: FINASTERIDE 5 MG TABLET PO (08:38)
[2023-04-24] MEDS: SPIRONOLACTONE 12.5 MG TABLET PO (08:38)
[2023-04-24] MEDS: AMIODARONE HCL 200 MG TABLET PO (08:39)
[2023-04-24] MEDS: PANTOPRAZOLE 40 MG TABLET PO (08:39)
[2023-04-24] MEDS: CHOLECALCIFEROL 1,000 UNITS TABLET 2000 UNITS PO (08:39)
[2023-04-24] MEDS: FUROSEMIDE INJ 40 MG/4 ML VIAL 60 MG IV PUSH ×2 (08:39→16:26)
[2023-04-24] MEDS: CLOBETASOL PROPIONATE 0.05% OINT 30 GM 1 APPLIC TOPICAL (08:40)
[2023-04-24] MEDS: PERFLUTREN LIPID MICROSPHERES 1.5 ML VIAL DILUTED TO 10 ML TOTAL VOLUME IV PUSH (11:00)
--- NOTE | 2023-04-24 12:45 | PM.IMPN ---
Progress Note: A&P Assessment and Plan (1) COVID-19: Code(s): U07.1 - COVID-19 Status: Acute Assessment and Plan: No desaturation or oxygen need at this time. Patient not a candidate for remdesivir. Patient complaining of chest congestion, sore throat and sinus drainage. He has Chloraseptic, Tylenol and now loratadine D and Mucinex DM. Patient denies difficulty breathing or wheezing. Lungs are clear. Pleural effusion right base on imaging. (2) Acute exacerbation of CHF (congestive heart failure): Qualifiers: Heart failure type: unspecified Qualified Code(s): I50.9 - Heart failure, unspecified Code(s): I50.9 - Heart failure, unspecified Status: Acute Assessment and Plan: Echocardiogram ordered. Patient receiving IV diuresis twice daily. He is requesting Benavides catheter due to difficulty emptying his bladder with heavy doses of diuretic (3) Weakness: Code(s): R53.1 - Weakness Status: Acute Assessment and Plan: Will include PT and OT for deconditioning (4) Hypothyroidism: Qualifiers: Hypothyroidism type: unspecified Qualified Code(s): E03.9 - Hypothyroidism, unspecified Code(s): E03.9 - Hypothyroidism, unspecified Status: Acute Assessment and Plan: Stable, continue home medications (5) GERD (gastroesophageal reflux disease): Qualifiers: Esophagitis presence: esophagitis presence not specified Qualified Code(s): K21.9 - Gastro-esophageal reflux disease without esophagitis Code(s): K21.9 - Gastro-esophageal reflux disease without esophagitis Status: Acute Assessment and Plan: Stable, continue home medications (6) BPH (benign prostatic hyperplasia): Qualifiers: Lower urinary tract symptom presence: unspecified whether lower urinary tract symptoms present Qualified Code(s): N40.0 - Benign prostatic hyperplasia without lower urinary tract symptoms Code(s): N40.0 - Benign prostatic hyperplasia without lower urinary tract symptoms Status: Acute Assessment and Plan: Insert Benavides catheter due to difficulty emptying bladder (7) Hyponatremia: Code(s): E87.1 - Hypo-osmolality and hyponatremia Status: Acute Assessment and Plan: Patient has chronic hyponatremia with sodium usually around 132, currently 130. Monitor twice daily lab draws likely related to COVID and diuresis Time Spent With Patient Time with patient: 25 - 35 minutes Subjective Date/time seen: 04/24/23 12:45 Interval history: Patient reports sinus drainage and chest congestion as chief complaints. He notes that he also has difficulty emptying his bladder and receiving heavy doses of diuretics is causing him bladder discomfort. Patient is requesting Benavides catheter insertion. Review of Systems Review of Systems: 12 systems were reviewed with pertinent positives and negatives per HPI. Except as documented in the HPI, all other systems were reviewed and are negative. Exam Narrative: Weight 93.8 kg BMI 29.3 Const: Other: No acute distress, well-developed well-nourished, appears stated age HENMT: Other: Mucous membranes are moist, no oral pharyngeal erythema, upper and lower dentures in place, head is normocephalic atraumatic Eyes: Other: Pupils are equal and reactive, lenses are clear, mild conjunctival pallor Neck: Other: No JVD, no significant lymphadenopathy Resp: Other: Clear to auscultation bilaterally, no increased work of breathing Cardio: Other: Regular rate, regular rhythm, 2+ bilateral radial pedal pulses, no significant murmur, no JVD GI: Other: Soft, nontender, distended, positive bowel sounds, no organomegaly Skin: Other: Mild pallor, non jaundice, normal temperature to touch Neuro: Other: Alert oriented, speech is clear, no facial asymmetry, moves all extremities equally, no localizing crystal
[2023-04-24] MEDS: LORATADINE/PSEUDOEPHEDRINE (*CRX) 10/240 MG TABLET ER 24 HR 1 TAB PO (14:06)
[2023-04-24] MEDS: guaiFENesin 600 MG/DEXTROMETHORPHAN 30 MG SR TAB 12 HR 1 TAB PO ×2 (15:12→20:16)
[2023-04-24 17:29] LABS: Anion Gap 8 mmol/L (8-16); Blood Urea Nitrogen 19 mg/dL (9-20); Calcium 8.1 mg/dL (8.4-10.2); Carbon Dioxide 30 mmol/L (22-30); Chloride 90 mmol/L (98-107); Estimated CRCL calculation 43 ml/min; Estimated Glomerular Filt Rate 52; Glucose 101 mg/dL (65-110); Potassium 3.5 mmol/L (3.4-5.0); Sodium 128 mmol/L (137-145)
[2023-04-24] MEDS: TAMSULOSIN HCL 0.4 MG CAPSULE PO (20:16)
[2023-04-24] MEDS: BISACODYL 5 MG TABLET EC PO (20:16)
[2023-04-25] VITALS (7 sets, daily range): BP systolic 136; BP diastolic 46; PULSE 59–82; RESP 16; TEMP 36.6; O2SAT 97
[2023-04-25] MEDS: LEVOTHYROXINE SODIUM 50 MCG TABLET PO (05:40)
[2023-04-25] MEDS: FAMOTIDINE 20 MG TABLET PO (09:34)
[2023-04-25] MEDS: AMIODARONE HCL 200 MG TABLET PO (09:34)
[2023-04-25] MEDS: CHOLECALCIFEROL 1,000 UNITS TABLET 2000 UNITS PO (09:35)
[2023-04-25] MEDS: LORATADINE/PSEUDOEPHEDRINE (*CRX) 10/240 MG TABLET ER 24 HR 1 TAB PO (09:35)
[2023-04-25] MEDS: FINASTERIDE 5 MG TABLET PO (09:35)
[2023-04-25] MEDS: PANTOPRAZOLE 40 MG TABLET PO (09:35)
[2023-04-25] MEDS: MONTELUKAST SODIUM 10 MG TABLET PO (09:35)
[2023-04-25] MEDS: FERROUS SULFATE 325 MG TABLET DR BY MOUTH (09:35)
[2023-04-25] MEDS: TERBINAFINE HCL 250 MG TABLET PO (09:35)
[2023-04-25] MEDS: guaiFENesin 600 MG/DEXTROMETHORPHAN 30 MG SR TAB 12 HR 1 TAB PO (09:35)
[2023-04-25] MEDS: SPIRONOLACTONE 12.5 MG TABLET PO (09:35)
[2023-04-25] MEDS: ASPIRIN 81 MG CHEWABLE TABLET PO (09:35)
[2023-04-25] MEDS: ATORVASTATIN 40 MG TABLET PO (09:35)
[2023-04-25] MEDS: METOPROLOL SUCCINATE EXT REL 12.5 MG TABCR PO (09:39)
[2023-04-25] MEDS: FUROSEMIDE INJ 40 MG/4 ML VIAL 60 MG IV PUSH (09:40)
--- NOTE | 2023-04-25 12:44 | PM.DS ---
DS: Admitting Diagnosis Discharge Date 04/25/2023 Admitting Diagnosis COVID-19, acute exacerbation of CHF weakness, hypothyroidism, GERD, BPH, hyponatremia DS: Discharge Diagnosis Discharge Diagnosis (1) COVID-19: Code(s): U07.1 - COVID-19 Status: Acute (2) Acute exacerbation of CHF (congestive heart failure): Qualifiers: Heart failure type: unspecified Qualified Code(s): I50.9 - Heart failure, unspecified Code(s): I50.9 - Heart failure, unspecified Status: Acute Assessment and Plan: Acute on chronic diastolic heart failure (3) Weakness: Code(s): R53.1 - Weakness Status: Acute (4) Hypothyroidism: Qualifiers: Hypothyroidism type: unspecified Qualified Code(s): E03.9 - Hypothyroidism, unspecified Code(s): E03.9 - Hypothyroidism, unspecified Status: Acute (5) GERD (gastroesophageal reflux disease): Qualifiers: Esophagitis presence: esophagitis presence not specified Qualified Code(s): K21.9 - Gastro-esophageal reflux disease without esophagitis Code(s): K21.9 - Gastro-esophageal reflux disease without esophagitis Status: Acute (6) BPH (benign prostatic hyperplasia): Qualifiers: Lower urinary tract symptom presence: unspecified whether lower urinary tract symptoms present Qualified Code(s): N40.0 - Benign prostatic hyperplasia without lower urinary tract symptoms Code(s): N40.0 - Benign prostatic hyperplasia without lower urinary tract symptoms Status: Acute Assessment and Plan: With urinary retention (7) Hyponatremia: Code(s): E87.1 - Hypo-osmolality and hyponatremia Status: Chronic Assessment and Plan: Chronic DS: Summary Hospital Course Reason for hospitalization: Patient was admitted with diagnosis of COVID and leg swelling with history of CHF. Hospital Course: Patient was admitted with COVID but he did not require supplemental oxygenation. He had some leg swelling that with extra diuresis. Patient's pain complaints were related to sore throat and sinus drainage. He reports that use a complete the initiation Claritin-D and Mucinex DM. Patient did Benavides catheter placed receiving increased diuresis per his own request. Today catheter was removed and patient was able to urinate prior to discharge. Patient never required supplemental oxygen. Pacemaker in place his rhythm was and pasted 60 on monitor Status at Discharge Cognitive/behavioral status at discharge: Awake alert oriented and very pleasant Functional status at discharge: independent ambulation Overall status at discharge: patient is back to baseline Time Spent with Patient Time attestation: Total time spent providing and/or coordinating discharge services: 35 Time spent: Greater than 30 minutes Exam Const: Other: No acute distress, well-developed well-nourished, appears stated age HENMT: Other: Mucous membranes are moist, no oral pharyngeal erythema, upper and lower dentures in place, head is normocephalic atraumatic Eyes: Other: Pupils are equal and reactive, lenses are clear, mild conjunctival pallor Neck: Other: No JVD, no significant lymphadenopathy Resp: Other: Clear to auscultation bilaterally, no increased work of breathing Cardio: Other: Regular rate, regular rhythm, 2+ bilateral radial pedal pulses, no significant murmur, no JVD GI: Other: Soft, nontender, distended, positive bowel sounds, no organomegaly Skin: Other: Mild pallor, non jaundice, normal temperature to touch Neuro: Other: Alert oriented, speech is clear, no facial asymmetry, moves all extremities equally, no localizing neurologic deficits noted during the course of conversation, chronic hearing loss Extrem: Other: No clubbing, cyanosis or edema, chronic age-related arthritic changes noted to the knees Psych: Other: Appropriate mood and aff
--- NOTE | 2023-04-25 12:49 | P.CDI_ITS ---
CDI Query Clarification Request Documented history fo CHF. CHF noted in the assessment and plan. Elevated BNP on 04/23/23 lab work. Patient presented with weight gain and LE edema. Lasix listed as a home medication. Patient receiving Lasix. Please specify type and acuity of heart failure if known. * Acute * Chronic * Acute on Chronic * Unknown * Systolic * Diastolic * Combined Systolic and Diastolic * Unknown <Malu Mendez RN - Last Filed: 04/25/23 12:51> Clarified Diagnosis Clarified Diagnosis: Acute on chronic diastolic heart failure <Rosalio Veras APRN - Last Filed: 04/25/23 13:01>
--- NOTE | 2023-04-25 15:18 | IVDEFINITY ---
Prior to administration of IV Definity the patient was educated on the risks and benefits of the imaging enhancing agent including potential adverse side effects. The patient verbalized understanding. Allergies were verified. No exclusion criteria were identified and at least one of the following inclusion criteria were met: 1) physician request, 2) patient technically difficult to image (per the [place] [employer] guidelines of two or more segments not discernable within the apical view), or 3) questionable left ventricular function. ?
== END 2023-04-25 16:45 | disposition home or self-care (01) | DRG 177 ==
LOC: ANHED 17:31 → ANH3MED 21:01
PROVIDERS: Emergency Medicine; Nurse Practitioner Family; Admitting Provider Internal Medicine; Emergency Provider Physician Assistant; Visit Provider Nurse Practitioner
DX: U07.1 COVID-19 (principal); I50.33 Acute on chronic diastolic (congestive) heart failure; I13.0 Hypertensive heart and chronic kidney disease with heart failure and stage 1 through stage 4 chronic kidney disease, or unspecified chronic kidney disease; E87.1 Hypo-osmolality and hyponatremia; E11.22 Type 2 diabetes mellitus with diabetic chronic kidney disease; N18.2 Chronic kidney disease, stage 2 (mild); E03.9 Hypothyroidism, unspecified; K21.9 Gastro-esophageal reflux disease without esophagitis; N40.1 Benign prostatic hyperplasia with lower urinary tract symptoms; R33.8 Other retention of urine; I48.91 Unspecified atrial fibrillation; I11.0 Hypertensive heart disease with heart failure; K59.00 Constipation, unspecified; I25.10 Atherosclerotic heart disease of native coronary artery without angina pectoris; G47.33 Obstructive sleep apnea (adult) (pediatric); Z95.1 Presence of aortocoronary bypass graft; Z98.42 Cataract extraction status, left eye; Z98.41 Cataract extraction status, right eye; Z96.1 Presence of intraocular lens; Z87.891 Personal history of nicotine dependence; Z79.82 Long term (current) use of aspirin; Z95.0 Presence of cardiac pacemaker
CPT/HCPCS: 36415; 71045; 71275; 80048; 80053; 83880; 84484; 85025; 85380; 85610; 85730; 87637; 93005; 96374; 96375; 96376; 97161; 99285; A9270; C8929; G0378; J1940; Q9957; Q9967

== ENCOUNTER 2023-05-14 10:51 | Outpatient (RCR) | payer MEDICARE, SELFPAY ==
[2023-05-14 11:47] LABS: Anion Gap 7 mmol/L (8-16); Blood Urea Nitrogen 20 mg/dL (9-20); Calcium 8.8 mg/dL (8.4-10.2); Carbon Dioxide 29 mmol/L (22-30); Chloride 99 mmol/L (98-107); Estimated Glomerular Filt Rate 52; Glucose 110 mg/dL (65-110); Potassium 3.7 mmol/L (3.4-5.0); Sodium 135 mmol/L (137-145)
== END 2023-08-12 23:59 | disposition home or self-care (01) ==
LOC: ANHLAB 10:51
PROVIDERS: Visit Provider Internal Medicine Nephrology
DX: D64.9 Anemia, unspecified (principal)
CPT/HCPCS: 36415; 80048

== ENCOUNTER 2023-05-28 11:05 | Outpatient (CLI) | payer MEDICARE, SELFPAY ==
[2023-05-28 12:18] LABS: Hematocrit 36.8 % (42.0-52.0); Hemoglobin 12.1 g/dL (14.0-18.0); Mean Corpuscular HGB Conc 32.9 g/dl (32-36); Mean Corpuscular Hemoglobin 31.2 pg (26-34); Mean Corpuscular Volume 94.8 fl (80-100); Mean Platelet Volume 9.4 fl (7.4-10.4); Platelet Count Result 228 k/mm3 (150-375); Red Blood Count 3.88 M/mm3 (4.6-6.20); Red Cell Distribution Width 14.1 % (11.5-14.5); White Blood Count 8.6 K/mm3 (4.5-10.0)
[2023-05-28 12:36] LABS: Alanine Aminotransferase 23 U/L (6-50); Albumin Level 4.1 g/dL (3.5-5.1); Alkaline Phosphatase 76 U/L (38-126); Anion Gap 7 mmol/L (8-16); Aspartate Amino Transferase 30 U/L (17-59); Bilirubin,Total 0.5 mg/dL (0.2-1.3); Blood Urea Nitrogen 17 mg/dL (9-20); Carbon Dioxide 31 mmol/L (22-30); Chloride 94 mmol/L (98-107); Estimated Glomerular Filt Rate 52; Glucose 111 mg/dL (65-110); Potassium 3.7 mmol/L (3.4-5.0); Sodium 132 mmol/L (137-145)
== END 2023-05-28 11:06 | disposition home or self-care (01) ==
PROVIDERS: Referring Provider Internal Medicine Nephrology
DX: E03.9 Hypothyroidism, unspecified (principal); D64.9 Anemia, unspecified; E78.5 Hyperlipidemia, unspecified
CPT/HCPCS: 36415; 80053; 84443; 85027

== ENCOUNTER 2023-08-02 10:01 | Outpatient (CLI) | payer MEDICARE, SELFPAY ==
--- NOTE | ~2023-08-02 | US_ITS ---
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 TECHNIQUE: Segmental pressures and plethysmographic and Doppler waveforms of the brachial and lower e xtremity arteries were obtained. COMPARISON: None. FINDINGS: Right and left brachial artery pressures of 150 mm Hg and 148 mm Hg, respectively, are concordant (no rmal difference <= 30 mmHg). The right ankle-brachial index (OLESYA) is unable to be obtained due to inability to occlude the vessels (normal >= 0.9-1). This likely related to vessel wall calcification which can be seen at the left an kle on radiographs dated 01/20/2022. The right great toe-brachial index (TBI) is 0.51 (normal >= 0.6-0 .8). Arterial waveforms are triphasic at the right common femoral artery, biphasic at the right popli teal artery and monophasic at the right posterior tibial and dorsalis pedis arteries with normal syst olic upstrokes throughout. The left OLESYA is also unable to be obtained due to inability to occlude the vessels. The left TBI is 0 .45. Arterial waveforms are triphasic at the left common femoral, posterior tibial and dorsalis pedis arteries and biphasic at the left popliteal artery, all with normal systolic upstrokes. IMPRESSION: 1. Arterial occlusive disease to bilateral lower limbs with mildly decreased bilateral TBI's. Reviewed, dictated and finalized at location A. 5TH GRADE TEACHER IMPRESSION: 1. Arterial occlusive disease to bilateral lower limbs with mildly decreased bi lateral TBI's.
== END 2023-08-02 10:02 | disposition home or self-care (01) ==
LOC: CHSIMG 10:04
PROVIDERS: Visit Provider Podiatrist Foot & Ankle Surgery
DX: I73.9 Peripheral vascular disease, unspecified (principal)
CPT/HCPCS: 93923

== ENCOUNTER 2023-08-14 14:44 | Outpatient (RCR) | payer MEDICARE, SELFPAY ==
[2023-08-14 15:29] LABS: Anion Gap 8 mmol/L (8-16); Blood Urea Nitrogen 16 mg/dL (9-20); Carbon Dioxide 32 mmol/L (22-30); Chloride 98 mmol/L (98-107); Estimated Glomerular Filt Rate 57; Glucose 109 mg/dL (65-110); Potassium 3.4 mmol/L (3.4-5.0); Sodium 138 mmol/L (137-145)
== END 2023-11-12 23:59 | disposition home or self-care (01) ==
LOC: ANHLAB 14:44
PROVIDERS: Visit Provider Internal Medicine Nephrology
DX: D64.9 Anemia, unspecified (principal)
CPT/HCPCS: 36415; 80048

== ENCOUNTER 2023-08-21 10:33 | Outpatient (CLI) | payer MEDICARE, SELFPAY ==
[2023-08-21 11:14] LABS: Basophils Absolute Auto 0.1 K/mm3 (0.0-0.1); Basophils Percent Auto 0.8 % (0.2-1.2); Eosinophils Absolute Auto 0.2 K/mm3 (0-0.3); Eosinophils Percent Auto 2.3 % (0-4.4); Hematocrit 34.6 % (42.0-52.0); Hemoglobin 11.4 g/dL (14.0-18.0); Immature Granulocyte Absolute 0.04 K/mm3 (0.00-0.031); Immature Granulocyte Percent A 0.4 % (0-0.5); Lymphocytes Absolute Auto 1.62 K/mm3 (0.9-3.2); Lymphocytes Percent Auto 16.6 % (18.3-44.2); Mean Corpuscular HGB Conc 32.9 g/dl (32-36); Mean Corpuscular Hemoglobin 31.3 pg (26-34); Mean Corpuscular Volume 95.1 fl (80-100); Monocytes Absolute Auto 0.9 K/mm3 (0.1-0.6); Neutrophils Absolute Auto 6.9 K/mm3 (1.3-6.7); Neutrophils Percent Auto 70.9 % (45.5-73.1); Platelet Count Result 207 k/mm3 (150-375); Red Blood Count 3.64 M/mm3 (4.6-6.20); Red Cell Distribution Width 13.5 % (11.5-14.5); White Blood Count 9.7 K/mm3 (4.5-10.0)
[2023-08-21 11:25] LABS: Anion Gap 7 mmol/L (8-16); Blood Urea Nitrogen 17 mg/dL (9-20); Calcium 8.8 mg/dL (8.4-10.2); Carbon Dioxide 31 mmol/L (22-30); Chloride 98 mmol/L (98-107); Estimated Glomerular Filt Rate 52; Glucose 147 mg/dL (65-110); Potassium 3.7 mmol/L (3.4-5.0); Sodium 136 mmol/L (137-145)
== END 2023-08-21 10:34 | disposition home or self-care (01) ==
DX: I70.239 Atherosclerosis of native arteries of right leg with ulceration of unspecified site (principal); I70.249 Atherosclerosis of native arteries of left leg with ulceration of unspecified site; I25.10 Atherosclerotic heart disease of native coronary artery without angina pectoris; Z95.1 Presence of aortocoronary bypass graft
CPT/HCPCS: 36415; 80048; 85025

== ENCOUNTER 2023-11-13 11:04 | Outpatient (RCR) | payer MEDICARE, SELFPAY ==
[2023-11-13 11:56] LABS: Anion Gap 8 mmol/L (4-12); Blood Urea Nitrogen 22 mg/dL (9-20); Calcium 9.3 mg/dL (8.4-10.2); Carbon Dioxide 25 mmol/L (22-30); Chloride 101 mmol/L (98-107); Estimated Glomerular Filt Rate 57; Glucose 106 mg/dL (65-110); Potassium 3.9 mmol/L (3.4-5.0); Sodium 134 mmol/L (137-145)
== END 2024-02-11 23:59 | disposition home or self-care (01) ==
LOC: ANHLAB 11:04
PROVIDERS: Visit Provider Internal Medicine Nephrology
DX: D64.9 Anemia, unspecified (principal)
CPT/HCPCS: 36415; 80048

== ENCOUNTER 2024-08-14 11:07 | Outpatient (CLI) | payer MEDICARE, SELFPAY ==
[2024-08-14 11:39] LABS: Hematocrit 36.2 % (42.0-52.0); Hemoglobin 12.1 g/dL (14.0-18.0); Mean Corpuscular HGB Conc 33.4 g/dl (32-36); Mean Corpuscular Hemoglobin 31.3 pg (26-34); Mean Corpuscular Volume 93.5 fl (80-100); Mean Platelet Volume 9.2 fl (7.4-10.4); Platelet Count Result 214 k/mm3 (150-375); Red Blood Count 3.87 M/mm3 (4.6-6.20); Red Cell Distribution Width 14.1 % (11.5-14.5)
[2024-08-14 11:54] LABS: Albumin Level 3.9 g/dL (3.5-5.1); Anion Gap 8 mmol/L (4-12); Blood Urea Nitrogen 21 mg/dL (9-20); Calcium 8.6 mg/dL (8.4-10.2); Carbon Dioxide 29 mmol/L (22-30); Chloride 99 mmol/L (98-107); Estimated Glomerular Filt Rate 46; Glucose 118 mg/dL (65-110); Phosphorus 3.4 mg/dL (2.5-4.5); Potassium 4.1 mmol/L (3.4-5.0); Sodium 136 mmol/L (137-145)
[2024-08-14 11:55] LABS: Creatinine Urine 161.1 mg/dL
[2024-08-14 12:00] LABS: MALB Creatinine Ratio 4.7 mg/g (0-30); Microalbumin Urine Random 7.6 mg/L (0-16.7)
== END 2024-08-14 11:08 | disposition home or self-care (01) ==
LOC: ANHLAB 11:08
PROVIDERS: Visit Provider Internal Medicine Nephrology
DX: N18.30 Chronic kidney disease, stage 3 unspecified (principal)
CPT/HCPCS: 36415; 80069; 82043; 85027

== ENCOUNTER 2025-06-30 12:49 | Emergency (ER) | payer MEDICARE, SELFPAY ==
--- OUTSIDE RECORDS SUMMARY | 2025-01-12 03:30 | XMS_ITS ---
Author Organization [facility] Address [address] [place], [place] [id number] Care Team Providers Care Hot Knife Foxing Cutter Name Role Phone JEFFRY MARCUM Unavailable [phone] Joseph Dial Unavailable Unavailable REASON FOR VISIT *General care Encounters Encounter Location Date Provider Diagnosis [facility] [address] [facility] [address] [place], [place] [id number] 01/12/2025 JEFFRY MARCUM Plan Of Treatment No Information Progress Notes * Khanh RANDALLDOB:1935 (89 yo M)Acc No.[id number]:01/12/2025 Patient: Erick avilesJoniKhanh Provider: Leti Marcum DPM :1935 A ge:89 Y S ex:Male Date:01/12/2025 Address[place] [id number] Subjective: * Chief Complaints: * * General care Billing Information: * Procedure Codes: * Electronic signature of JEFFRY MARCUM DPM on 06/30/2025 at 01:49 PM PRIVATE BRANCH EXCHANGE SERVICE ADVISOR Sign off status: Pending * Provider: Leti Marcum DPM Date: 0 01/12/2025 Generated for Arslan guadarrama/Verito/eTransmitting on: 1 08/31/2024 01:49 PM PRIVATE BRANCH EXCHANGE SERVICE ADVISOR
--- NOTE | ~2025-06-30 | XR_ITS ---
XR knee RT 3V 06/30/2025 13:34 Indication: Status post fall Procedure: 3 views left knee Comparison: No prior studies for comparison. Findings: Moderate tricompartment osteoarthritis. Osteopenia. There is atherosclerosis. No fracture or traumatic malalignment. Small joint effusion. There is an amorphous calcification posterior to the, possibly calcified hematoma or lymph node. Impression: 1: Moderate tricompartment osteoarthritis. Reviewed, dictated and finalized at location I. BALLER Impression: 1: Moderate tricompartment osteoarthritis.
[2025-06-30 12:57] VITALS: BP 129/64; PULSE 86; RESP 14; TEMP 36.2; O2SAT 99
--- NOTE | 2025-06-30 13:41 | ED.LOWEXIN ---
HPI - Extremity Injury (Lower) General Chief Complaint: Extremity Injury, Lower Stated Complaint: R knee pain Time Seen by Provider: 06/30/25 13:02 Source: patient and family (daughter Rhea) Mode of arrival: ambulatory (but seated in wheelchair) Limitations: other (some hearing limitations) History of Present Illness HPI Narrative: Patient presents with right knee pain along the lateral aspect. Yesterday he reports falling out of his rolling chair ; he doesn't believe he landed on it but rather struck it on the dresser. He uses a walker PRN. He took Tylenol 500mg BID ; also takes Tramadol PRN for his toe (for which he sees Infectious Disease and wound care). They report he has bone on bone in this leg. Has not been using ice or heat. No loss of conscioussness. Did not hit his head. Not on anticoagulation. Has been told he can't take ibuprofen because of another medication he is on but doesn't know what that might be. Denies paresthesias. Lives with his daughter. Related Data Home Medications ?Medication ?Instructions ?Recorded ?Confirmed ?Last Taken ?Type amiodarone 200 mg tablet 200 mg PO QAM 05/22/22 04/23/23 04/22/23 09:00 History ascorbic acid (vitamin C) 100 mg 100 mg PO DAILY 05/22/22 04/23/23 04/22/23 09:00 History tablet (Vitamin C) aspirin 81 mg capsule 81 mg PO QAM 05/22/22 04/23/23 04/22/23 09:00 History atorvastatin 40 mg tablet 40 mg PO QAM 05/22/22 04/23/23 04/22/23 09:00 History bisacodyl 5 mg tablet,delayed 5 mg PO HS 05/22/22 04/23/23 04/21/23 21:00 History release (Dulcolax (bisacodyl)) famotidine 20 mg tablet 20 mg PO BID 05/22/22 04/23/23 04/22/23 09:00 History ferrous sulfate 325 mg (65 mg 325 mg PO QAM 05/22/22 04/23/23 04/22/23 09:00 History iron) tablet fluticasone propionate 50 2 spray intranasal DAILY 05/22/22 04/23/23 04/22/23 09:00 History mcg/actuation nasal spray,suspension (Flonase Allergy Relief) furosemide 40 mg tablet 80 mg PO QAM 05/22/22 04/23/23 04/22/23 09:00 History levothyroxine 50 mcg tablet 50 mcg PO QAM 05/22/22 04/23/23 04/22/23 06:30 History metoprolol succinate 25 mg 12.5 mg PO QAM 05/22/22 04/23/23 04/22/23 09:00 History tablet,extended release 24 hr montelukast 10 mg tablet 10 mg PO QAM 05/22/22 04/23/23 04/22/23 09:00 History pantoprazole 40 mg tablet,delayed 40 mg PO QAM 05/22/22 04/23/23 04/22/23 09:00 History release spironolactone 25 mg tablet 12.5 mg PO DAILY 05/22/22 04/23/23 04/22/23 09:00 History tamsulosin 0.4 mg capsule 0.4 mg PO HS 05/22/22 04/23/23 04/22/23 21:00 History cholecalciferol (vitamin D3) 50 50 mcg PO QAM 04/23/23 04/23/23 04/22/23 09:00 History mcg (2,000 unit) capsule (Vitamin D3) clobetasol 0.05 % topical ointment 1 applic topical DAILY 04/23/23 04/23/23 04/22/23 09:00 History finasteride 5 mg tablet 5 mg PO QAM 04/23/23 04/23/23 04/22/23 09:00 History furosemide 20 mg tablet 20 mg PO QAM PRN Edema 04/23/23 04/23/23 04/22/23 09:00 History hydroxyzine HCl 25 mg tablet 25 mg PO BID PRN Anxiety 04/23/23 04/23/23 Unknown History terbinafine HCl 250 mg tablet 250 mg PO QAM 04/23/23 04/23/23 04/22/23 09:00 History Allergies Allergy/AdvReac Type Severity Reaction Status Date / Time Penicillins Allergy Rash Verified 06/30/25 13:01 [facility] Past Medical History Medical History Hearing aid worn Type 2 diabetes mellitus Chronic kidney disease, stage II (mild) Obstructive sleep apnea Essential hypertension Intracranial bleed Vitamin D deficiency Chronic constipation Hyperlipidemia Iron deficiency anemia Hypothyroidism GERD (gastroesophageal reflux disease) BPH (benign prostatic hyperplasia) Atrial fibrillation CHF (congestive heart failure) Reported EF of 50% Coronary artery disease Surgical History Surgical History (Updated 04/23/23 @ 23:53 by Shayy Arriaza DO) Status post cataract extraction of both eyes with insertion of intraocular lens Status post arthroscopic surgery of right knee Pacemaker Biventricular pacemaker Hx of CABG 3 vessel CABG Family History Family History Father Heart disease Mother Colon cancer Social History Social History Social History: He currently lives with his oldest daughter Rhea. He is . 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 He has 2 daughters and 2 sons. He used to smoke a pack of cigarettes per day for about 30 years but quit smoking over 20 years ago. He also used to smoke about 10 cigars a month. He denies any significant history of alcohol use. He ambulates with a cane. Code status: Full code (however he would not want long-term ventilation or feeding tube.) Healthcare power of contracts attorney: Rhea Hunt (oldest daughter) Smoking packs per day: 1 Smoking cigarettes per day: 20.0 Years smoked: 30 Smoking pack-years: 30.00 Smoking status: Former smoker Alcohol intake: never Substance use: never Substance use type: does not use Lack of Transportation: No Lack of Food: Never True Current Housing: I Have Housing Concerned About Future Housing: No Difficulty Paying Gas/Electric Bills: No Difficulty Paying for Meds: No Currently Unemployed: No Education: High School Diploma/GED Difficulty w/ Childcare or Family Care: No Spiritual care concerns: No Exam Narrative: GENERAL: Well-appearing, well-nourished, and in no acute distress. Wearing red [employer] hat HEAD: Normocephalic, atraumatic. EYES: Non injected, non icteric ENT: Nares clear, no rhinorrhea or epistaxis. Gross auditory acuity aided by hearing aid ; can hear when spoken to at close range NECK: Supple. No meningismus. CHEST: Speaking in full sentences. No respiratory distress. HEART: Regular rate; no bradycardia/tachycardia ABDOMEN: Soft, nondistended. Not peritoneal EXTREMITIES: Normal range of motion. Extensor and flexor tendon mechanisms intact, 5/5 strength. SKIN: Warm, dry. Faint ecchymosis and mild edema along right lateral knee joint with some extension inferiorly. Skin mildly warm over lateral joint line but without overlying erythema/cellulitic changes NEURO: No focal deficits. Alert and oriented. Answering questions. Following commands. Normal speech without aphasia or dysarthria. Sensation intact throughout right leg. PSYCH: Normal mood and affect. Course Vital Signs Vital signs: Vital Signs Temperature 97.1 F L 06/30/25 12:57 Pulse Rate 86 06/30/25 12:57 Respiratory Rate 14 06/30/25 12:57 Blood Pressure 129/64 06/30/25 12:57 Pulse Oximetry 99 06/30/25 12:57 Oxygen Delivery Room Air 06/30/25 12:57 Temperature 97.1 F L 06/30/25 12:57 Pulse Rate 86 06/30/25 12:57 Respiratory Rate 14 06/30/25 12:57 Blood Pressure 129/64 06/30/25 12:57 Pulse Oximetry 99 06/30/25 12:57 Oxygen Delivery Room Air 06/30/25 12:57 [facility] Narrative Medical decision making narrative: Patient presents with right lateral knee pain after falling and striking it against a dresser yesterday. In the emergency department they are afebrile with vital signs within normal limits. Neurovascularly intact. [place] given. Patient daughter report that he cannot take NSAIDs due to an interaction with 1 of his medications although they do not know which 1 and per my written quick review of his medication list this is unclear. Will give 1 time dose of IM ketorolac. Discharged with prescriptions and advised follow up. If pain persists/patient presents again, may consider CT imaging to assess for occult fracture Differential Diagnosis Differential Diagnosis: fracture, dislocation; sprain;strain; internal derangement (ligamentous/tendon injury, meniscal injury); occult tibial plateau fracture Imaging Data Attestation: I personally reviewed and interpreted this imaging study as follows: My impression: Significant osteoarthritis as well as calcifications of the blood vessels on my independent interpretation of knee xray Radiologist's impression: ITS Impressions Knee X-Ray 06/30/25 13:36 Impression: 1: Moderate tricompartment osteoarthritis. Discharge Plan Discharge Clinical Impression: Fall, Right knee sprain, Tricompartment osteoarthritis of right knee Patient Disposition: Home Condition: Stable Instructions: Antibiotic Form, Knee Sprain (DC), Osteoarthritis (DC), Fall Prevention for Older Adults (ED), P.R.I.C.E. Treatment (ED) Additional Instructions: No broken bones (fracture) or dislocation. You may have a ligament /meniscus injury but those are not seen on xray. Will start by treating as a knee sprain. Remember R-I-C-E (rest, ice, compression, elevation). Acetaminophen/Tylenol (maximum 4000 mg per day, two 500mg tablets every 6 hours) is safe to take. You can continue to use the tramadol you have prescribed as well. Lidocaine patches have also been prescribed. Follow up with your PCP in the next 3-5 days. If not improving, you may require physical therapy, alternative pain medication, steroid injection, advanced imaging, etc. Return with any new or worsening symptoms. Patient Language: Citizen [place] Prescriptions: New lidocaine 4 % adhesive patch,medicated 1 patch topical DAILY PRN (Reason: pain) Qty: 30 0RF No Action furosemide 40 mg Tablet 80 mg PO QAM atorvastatin 40 mg Tablet 40 mg PO QAM amiodarone 200 mg Tablet 200 mg PO QAM spironolactone 25 mg Tablet 12.5 mg PO DAILY famotidine 20 mg Tablet 20 mg PO BID tamsulosin 0.4 mg Capsule 0.4 mg PO HS levothyroxine 50 mcg Tablet 50 mcg PO QAM pantoprazole 40 mg Tablet,Delayed Release (Dr/Ec) 40 mg PO QAM ferrous sulfate 325 mg (65 mg iron) Tablet 325 mg PO QAM montelukast 10 mg Tablet 10 mg PO QAM bisacodyl [Dulcolax (bisacodyl)] 5 mg Tablet,Delayed Release (Dr/Ec) 5 mg PO HS metoprolol succinate 25 mg Tablet Extended Release 24 Hr 12.5 mg PO QAM fluticasone propionate [Flonase Allergy Relief] 50 mcg/actuation [place],Suspension 2 spray INTRANASAL DAILY Rx Instructions: administer into each nostril aspirin 81 mg Capsule 81 mg PO QAM Vitamin C 100 mg Tablet 100 mg PO DAILY terbinafine HCl 250 mg tablet 250 mg PO QAM hydroxyzine HCl 25 mg tablet 25 mg PO BID PRN (Reason: Anxiety) furosemide 20 mg tablet 20 mg PO QAM PRN (Reason: Edema) Rx Instructions: take if 2-3 pound weight gain in 24 hrs clobetasol 0.05 % Ointment 1 applic TOPICAL DAILY Rx Instructions: Uses on neck, back, sides and lower part of shoulders finasteride 5 mg tablet 5 mg PO QAM cholecalciferol (vitamin D3) [Vitamin D3] 50 mcg (2,000 unit) Capsule 50 mcg PO QAM Claritin-D 24 Hour 10-240 mg Tablet Extended Release 24 Hr 1 tablet PO QAM Qty: 30 0RF Mucinex DM 30-600 mg Tablet Extended Release 12 Hr 1 tab PO Q12HR Qty: 60 0RF Follow-up/Referrals: PHYSICIAN,OFFSET PRINTING OPERATOR [Primary Care Provider, Internal Medicine] Time of Disposition: 14:18
--- OUTSIDE RECORDS SUMMARY | 2025-06-30 13:49 | XMS_ITS | Encounter Summary ---
Author Organization [facility] Address [address] [place] [address] Care Team Providers Care Prosthetic Aide Name Role Phone Scott Dial MD Primary Care Provider [phone] Olinda Felton [facility]- Unavailable [phone] Kan-Elisha Blanca MD Unavailable [phone] Chu Varner MD Unavailable [phone] Mina Hutchins MD Unavailable [phone] Stanton Valenzuela MD Unavailable [phone] Samreen Liu PA-C Unavailable [phone] Cabrera Mary MD Unavailable Antoinette Atkins MD Unavailable [phone] Jesus Abreu MD Unavailable Mina Hutchins MD Unavailable [phone] Zoie Parra NP Unavailable [phone] Franklin Costa DPM Unavailable Kyle Torres MD Unavailable Antoinette Atkins MD Unavailable Encounter Details Date Type Department Care Team (Late st Contact Info) Description 03/18/2024 Hospital Orders Only [facility] [address] [place] [address] Antoinette Atkins MD [address] [facility] [address] [place] [id number] Social History Tobacco Use Types Packs/Day Years Used Date Smoking Tobacco: Former Pipe Q uit: 1970 Smokeless Tobacco: Never Alcohol Use Standard Drinks/Week Comments No 0 (1 standard drink = 0.6 oz pur e alcohol) Sex and Gender Information Value Date Recorded Sex Assigned at Male 12/04/2024 11:38 PM CDT Legal Sex Male 7:07 PM CDT Gender Identity Male 12/04/2024 11:38 PM CDT Sexual Orientation Not on file Occupation Industry Job Start Date Job End Date Not on file Not on file Not on file Not on file documented as of this encounter Functional Status * RETIRED Are you deaf or do you have serious difficulty hearing Answer Date of Assessment Author Status No 05/16/2022 10:00 PM CDT Acti ve * RETIRED Are you blind or do you have serious difficulty seeing, even when wearing glasses? Answer Date of Assessment Author Status No 05/16/2022 10:00 PM CDT Acti ve * Do you have serious difficulty walking or climbing stairs? Answer Date of Assessment Author Status No 05/16/2022 10:00 PM ERLINDAT Faustina Humphries RN Active * Do you have difficulty dressing or bathing? Answer Date of Assessment Author Status No 05/16/2022 10:00 PM ERLINDAT Faustina Humphries RN Active * Because of a physical, mental, or emotional condition, do you have difficulty doing errands alone such as visiting a doctor's office or shopping? Answer Date of Assessment Author Status No 05/16/2022 10:00 PM ERLINDAT Faustina Humphries RN Active * Calculated C-SSRS Risk Score (Lifetime/Recent) Answer Date of Assessment Author Status No Risk Indicated 03/19/2024 7:36 AM CDT Shadia Guajardo RN Active * [place] Suicide Severity Rating Scale (Screener/Recent Self-Report) Question Answer Date of Assessment Author Status 1. Wish to be (Past 1 Month) No 03/19/2024 7:36 AM CDT Any Guajardo RN Acti ve 2. Non-Specific Active Suicidal Thoughts (Past 1 Month) No 03/19/2024 7:36 AM CDT Any Guajardo RN Acti ve 6. Suicidal Behavior (Lifetime) No 03/19/2024 7:36 AM CDT Any Guajardo RN Acti ve documented as of this encounter Mental Status * Because of a physical, mental, or emotional condition, do you have serious difficulty concentrating, remembering, or making decisions? Answer Entry Date Author Status No 05/16/2022 10:00 PM CDT Faustina Humphries RN Active documented in this encounter Plan of Treatment Upcoming Encounters Date Type Department Care Team (Late st Contact Info) Description 07/07/2025 11:[address] Office Visit [facility] [address] [place] [address] Stanton Valenzuela MD [address] [place] [address] 07/07/2025 11:[address] Allied Health/Nurse Visit [facility] [address] [place] [phone] Stanton Valenzuela MD [address] [place] [address] 10/12/2025 2:15 AM CDT Allied Health/Nurse Visit [facility] [address] [place] [address] Stanton Valenzuela MD [address] [place] [address] 02/07/2026 11:30 AM CDT Office Visit [facility] [address] [place] [id number] Malu Woods, ANP- [address] [facility] [address] [place] [address] documented as of this encounter Goals Goal Patient Goal Type Associated Problems Recent Progress Patient-Stated? Author Family - family caregiver with be involved in care transitions and discharge planning General No Elena Stanley, RN Safety Patient/family will have appropriate support at home upon discharge General No Elena Stanley, mechanical integrity specialist - family caregiver with be involved in care transitions and discharge planning Lifestyle No Dara Hair RN documented as of this encounter Visit Diagnoses Not on filedocumented in this encounter Care Teams Prosthetic Aide Relationship Specialty Start Date End Date Scott Dial MD [address] [place] [address] PCP - General FAMILY PRACTICE 01/14/18 Olinda [facility] [address] [place] [address] CARDIOVASCULAR DISEASE 05/29/18 Elisha Munroe MD [address] [place] [address] Surgeon NEUROLOGICAL SURGERY 11/14/21 Chu Varner MD [address] [place] [address] Consulting Physician INTERVENTIONAL CARDIOLOGY 04/16/22 08/12/24 Mina Hutchins MD [address] [place] [address] Consulting Physician INTERVENTIONAL CARDIOLOGY 04/23/22 12/06/24 Stanton Valenzuela MD [address] [place] [address] Consulting Physician CLINICAL CARDIAC ELECTROPHYSIOLOGY 05/02/22 Samreen Liu PA-C [address] [place] [address] Referring Physician PHYSICIAN HISTORY TEACHER 05/28/23 Cabrera Mary MD [address] [place] [address] [place] [address] Consulting Physician CARDIOVASCULAR DISEASE 10/23/23 Antoinette Atkins MD [address] [phone] Internal Medicine - Infectious Disease 10/30/23 10/29/24 [place] [address] [address] Surgeon WOUND CARE 10/30/23 10/29/24 Mina Hutchins MD [address] [place] [address] Consulting Physician INTERVENTIONAL CARDIOLOGY 02/11/24 12/06/24 Zoie Parra NP [address] [place] [address] [address] Nurse Practitioner Nurse Practitioner Family 05/26/24 12/07/24 Franklin Costa DPM [address] [place] [address] Referring Physician PODIATRY/SURGERY 06/03/24 06/03/25 Kyle Torres MD [address] [place] [address] VASCULAR SURGERY 11/12/24 11/12/25 Antoinette Atkins MD [address] [place] [phone] Internal Medicine - Infectious Disease 11/16/24 11/16/25 documented as of this encounter
--- OUTSIDE RECORDS SUMMARY | 2025-06-30 13:49 | XMS_ITS | Encounter Summary ---
Author Organization [facility] Address [address] [place] [address] Care Team Providers Care Soap Worker Name Role Phone Scott Dial MD Primary Care Provider [phone] Olinda Fetlon [facility]- Unavailable [phone] Kan-Elisha Blanca MD Unavailable [phone] Chu Varner MD Unavailable [phone] Mina Hutchins MD Unavailable +[phone] Stanton Valenzuela MD Unavailable [phone] Samreen Liu PA-C Unavailable [phone] Cabrera Mary MD Unavailable Antoinette Atkins MD Unavailable [phone] Jesus Abreu MD Unavailable Mina Hutchins MD Unavailable +[phone] Zoie Parra NP Unavailable [phone] Franklin Costa DPM Unavailable Kyle Torres MD Unavailable Antoinette Atkins MD Unavailable [phone] Encounter Details Date Type Department Care Team (Late st Contact Info) Description 03/17/2024 [employer] Message Enc [facility] [address] [place] [address] Mina Hutchins MD [address] [facility] [address] [place] [address] CIELO RANDALL HAS A STAPH INFECTION Social History Tobacco Use Types Packs/Day Years [...] 10:00 PM CDT Faustina Humphries RN Active * Do you have difficulty dressing or bathing? Answer Date of Assessment Author Status No 05/16/2022 10:00 PM CDT Faustina Humphries RN Active * Because of [...] AM CDT Shadia Guajardo RN Active * [place] Suicide Severity Rating Scale (Screener/Recent Self-Report) Question [...] Date Author Status No 05/16/2022 10:00 PM ERLINDAT Faustina Humphries RN Active documented in this encounter Plan of Treatment Upcoming Encounters Date Type Department Care Team (Late st Contact Info) Description 07/07/2025 11:00 AM INSURANCE AND FINANCIAL SERVICES AGENT Office Visit [facility] [place] [address] [place] [address] Stanton Valenzuela MD [address] [place] [address] 07/07/2025 11:00 AM INSURANCE AND FINANCIAL SERVICES AGENT Allied Health/Nurse Visit [facility] [place] [address] [address] [place] [address] Stanton Valenzuela MD [address] [place] [address] 10/12/2025 2:15 AM CDT Allied Health/Nurse Visit [facility] [address] [place] [address] Stanton Valenzuela MD [address] [place] [address] 02/07/2026 11:30 AM CDT [facility] [place] [address] Malu Woods, [facility]- [address] [facility] [address] [place] [address] documented as of this encounter Goals Goal Patient Goal Type Associated Problems Recent Progress Patient-Stated? Author Family - family caregiver with be involved in care transitions and discharge planning General No Elena Stanley, RN Safety Patient/family will have appropriate support at home upon discharge General No Elena Stanley, dice maker - family caregiver with be involved in care transitions and discharge planning Lifestyle No Dara Hair RN documented as of this encounter Visit Diagnoses Not on filedocumented in this encounter Care Teams Soap Worker Relationship Specialty Start Date End Date Scott Dial MD [address] [place] [address] PCP - General FAMILY PRACTICE 01/14/18 Olinda Felton [facility]GED WITH [facility] [address] [place] [address] CARDIOVASCULAR DISEASE 05/29/18 Kan-Elisha Blanca MD [address] [place] [address] Surgeon NEUROLOGICAL SURGERY 11/14/21 Chu Varner MD [address] [place] [address] Consulting Physician INTERVENTIONAL CARDIOLOGY 04/16/22 08/12/24 Mina Hutchins MD [address] [place] [address] Consulting Physician INTERVENTIONAL CARDIOLOGY 04/23/22 12/06/24 Stanton Valenzuela MD [address] [place] [address] Consulting Physician CLINICAL CARDIAC ELECTROPHYSIOLOGY 05/02/22 Samreen Liu PA-C [address] [place] [address] Referring Physician PHYSICIAN CATCHER HELPER 05/28/23 Cabrera Mary MD [address] [place] [address] [place] [address] Consulting Physician CARDIOVASCULAR DISEASE 10/23/23 Antoinette Atkins MD [address] [phone] Internal Medicine - Infectious Disease 10/30/23 10/29/24 [place] [address] [address] Surgeon WOUND CARE 10/30/23 10/29/24 Mina Hutchins MD [address] [place] [address] Consulting Physician INTERVENTIONAL CARDIOLOGY 02/11/24 12/06/24 Zoie Parra NP [address] [place] [address] [address] [place] [phone] Nurse Practitioner Nurse Practitioner Family 05/26/24 12/07/24 Franklin Costa DPM [address] [place] [address] Referring Physician PODIATRY/SURGERY 06/03/24 06/03/25 Kyle Torres MD [address] [place] [address] VASCULAR SURGERY 11/12/24 11/12/25 Antoinette Atkins MD [address] [place] [address] Internal Medicine - Infectious Disease 11/16/24 11/16/25 documented as of this encounter
--- OUTSIDE RECORDS SUMMARY | 2025-06-30 13:50 | XMS_ITS | Encounter Summary ---
Author Organization [facility] Address [address] [place] [address] Care Team Providers Care Pelt Dropper Name Role Phone Scott Dial MD Primary Care Provider [phone] Gwendolyn Mcguire MD, Robert Unavailable [phone] Malu Woods ANP-BC Unavailable + [phone] Olinda Felton AGACNP-BC Unavailable [phone] Jess Wiley NP Unavailable Unavailable [facility]-Elisha Blanca MD Unavailable [phone] Chu Varner MD Unavailable [phone] Mina Hutchins MD Unavailable +[phone] Stanton Valenzuela MD Unavailable +[phone] Samreen Liu PA-C Unavailable +[phone] Cabrera Mary MD Unavailable Antoinette Atkins MD Unavailable [phone] Jesus Abreu MD Unavailable Mina Hutchins MD Unavailable +[phone] Zoie Parra NP Unavailable +[phone] Franklin Costa DPM Unavailable Kyle Torres MD Unavailable Antoinette Atkins MD Unavailable [phone] Encounter Details Date Type Department Care Team (Late st Contact Info) Description 06/29/2022 Abstract [facility] [address] [place] [address] Malu Woods, ANP- [address] [facility] [address] [place] [address] Social History Tobacco Use Types Packs/Day Years [...] file Not on file Not on file COVID-19 Exposure Response Date Recorded In the last 10 days, have yo u been in contact with someone who was confirmed or suspected to have Coronavirus/COVID-19? Unable to assess 06/25/2022 7:59 AM ABSTRACT SEARCHER documented as of this encounter Functional Status [...] PM CDT Faustina Humphries RN Active documented as of this encounter Mental Status * Because of a physical, mental, or emotional condition, do you have serious difficulty concentrating, remembering, or making decisions? Answer Entry Date Author Status No 05/16/2022 10:00 PM CDT Faustina Humphries RN Active documented in this encounter Plan of Treatment Upcoming Encounters Date Type Department Care Team (Late st Contact Info) Description 07/07/2025 11:00 AM ABSTRACT SEARCHER Office Visit [facility] [address] [place] [address] Stanton Valenzuela MD [address] [place] [address] 07/07/2025 11:00 AM ABSTRACT SEARCHER Allied Health/Nurse Visit [facility] [address] [place] [address] Stanton Valenzuela MD [address] [place], [place] [phone] 10/12/2025 2:15 AM CDT Allied Health/Nurse Visit [facility] [address] [place] [phone] Stanton Valenzuela MD [address] [place] [address] 02/07/2026 11:30 AM CDT Office Visit [facility] [address] [place] [phone] Malu Woods, ANP-BC [address] [facility] [address] [place] [address] documented as of this encounter Goals Goal Patient Goal Type Associated Problems Recent Progress Patient-Stated? Author Family - family caregiver with be involved in care transitions and discharge planning General No Elena Stanley, RN Safety Patient/family will have appropriate support at home upon discharge General Elena Martinez, flight control specialist - family caregiver with be involved in care transitions and discharge planning Lifestyle No Dara Hair RN documented as of this encounter Procedures Procedure Name Priority Date/Time Associated Diagnosis Comments PRO-BRAIN NATRIURETIC PEPTIDE Routine 06/27/2022 Chronic heart failure with preserved ejection fraction (HFpEF) BASIC METABOLIC PANEL Routine 06/27/2022 Chronic heart failure with preserved ejection fraction (HFpEF) documented in this encounter Results * BASIC METABOLIC PANEL (06/27/2022) SODIUM S/P/B 133 136 - 146 POTASSIUM S/P/B 4.3 3.5 - 5.1 CO2 26 20 - 32 CHLORIDE S/P/B 95 98 - 110 GLUCOSE 85 70 - 100 mg/dL CALCIUM S/P/B 9.0 8.4 - 10.4 BUN 20 7 - 21 CREATININE S/P/B 1.3 0.7 - 1.3 EGFR AFR. AMER. 68 <=90 EGFR NON-AFR. AMER. 56 <=90 06/27/2022 us Malu Woods ANP-BC LABORATORY Final Re sult * PRO-BRAIN NATRIURETIC PEPTIDE (06/27/2022) PRO-BRAIN NATRIURETIC PEPTIDE 1,444 0 - 186 06/27/2022 us Malu Woods ANP-BC LABORATORY Final Re sult documented in this encounter Visit Diagnoses Diagnosis Chronic heart failure with preserved ejection fraction (HFpEF) (CMS/HCC HHS/HCC) documented in this encounter Care Teams Pelt Dropper Relationship Specialty Start Date End Date Scott Dial MD [address] [place] [address] PCP - General FAMILY PRACTICE 01/14/18 Melvin Snow MD [address] [place] [phone] [place] Ophthalmologist INTERVENTIONAL CARDIOLOGY 01/14/18 05/27/23 Malu Woods ANP- [address] [facility] [address] [place] [address] CARDIOVASCULAR DISEASE 01/14/18 Olinda Felton AGACNP- [address] [address] CARDIOVASCULAR DISEASE 05/29/18 Jess Wiley, FULL STACK JAVA DEVELOPER [address] [address] Nurse Practitioner Electrophysiology 06/13/18 05/27/23 Elisha Munroe MD [address] [place] [address] Surgeon NEUROLOGICAL SURGERY 11/14/21 Chu Varner MD [address] [place] [address] Consulting Physician INTERVENTIONAL CARDIOLOGY 04/16/22 08/12/24 Mina Hutchins MD [address] [place] [address] Consulting Physician INTERVENTIONAL CARDIOLOGY 04/23/22 12/06/24 Stanton Valenzuela MD [address] [place] [address] Consulting Physician CLINICAL CARDIAC ELECTROPHYSIOLOGY 05/02/22 Samreen Liu PA-C [address] [place] [address] Referring Physician PHYSICIAN LADIES SUIT OPERATOR 05/28/23 Cabrera Mary MD [address] [place] [address] [place] [address] Consulting Physician CARDIOVASCULAR DISEASE 10/23/23 Antoinette Atkins MD [facility] [address] [phone] Internal Medicine - Infectious Disease 10/30/23 10/29/24 [place] [address] [place] [address] Surgeon WOUND CARE 10/30/23 10/29/24 Mina Hutchins MD [address] [place] [address] Consulting Physician INTERVENTIONAL CARDIOLOGY 02/11/24 12/06/24 Zoie Parar NP [address] [place] [phone] Nurse Practitioner Nurse Practitioner Family 05/26/24 12/07/24 Franklin Costa DPM [address] [place] [address] Referring Physician PODIATRY/SURGERY 06/03/24 06/03/25 Kyle Torres MD [address] [place] [address] VASCULAR SURGERY 11/12/24 11/12/25 Antoinette Atkins MD [address] [phone] Internal Medicine - Infectious Disease 11/16/24 11/16/25 documented as of this encounter
--- OUTSIDE RECORDS SUMMARY | 2025-06-30 13:50 | XMS_ITS | Encounter Summary ---
Author Organization [facility] Address [address] [place] [address] Care Team Providers Care Base Loader Name Role Phone Scott Dial MD Primary Care Provider [phone] Olinda Felton AGACNP-BC Unavailable [phone] Elisha Munroe MD Unavailable [phone] Stanton Valenzuela MD Unavailable [phone] Samreen Liu PA-C Unavailable [phone] Zoie Parra NP Unavailable [phone] Franklin Costa DPM Unavailable Kyle Torres MD Unavailable Antoinette Atkins MD Unavailable [phone] Encounter Details Date Type Department Care Team (Late st Contact Info) Description 12/07/2024 Hospital Follow-up Call [facility] Cardiovascular Care Unit [address] [place] [address] Yajaira Villa, RN Social History Tobacco Use Types Packs/Day Years Used Date Smoking Tobacco: Former Pipe Q uit: 1970 Smokeless Tobacco: Never Alcohol Use Standard Drinks/Week Comments No 0 (1 standard drink = 0.6 oz pur e alcohol) [facility] Utilities Answer Date Recorded In the past 12 months has th e electric, gas, oil, or water company threatened to shut off services in your home? No 12/04/2024 Humiliation, Afraid, Rape, and Kick questionnair e Answer Date Recorded Within the last year, have y ou been afraid of your partner or ex-partner? No 12/04/2024 Within the last year, have y ou been humiliated or emotionally abused in other ways by your partner or ex-partner? No Within the last year, have y ou been kicked, hit, slapped, or otherwise physically hurt by your partner or ex-partner? No 12/04/2024 Within the last year, have y ou been raped or forced to have any kind of sexual activity by your partner or ex-partner? No 12/04/2024 Overall Financial Resource Strain (CARDIA) Answe r Date Recorded How hard is it for you to pa y for the very basics like food, housing, medical care, and heating? Not hard at all 12/04/2024 Hunger Vital Sign Answer Date Recorded Within the past 12 months, y ou worried that your food would run out before you got the money to buy more. Never true 12/05/19 25 Within the past 12 months, t he food you bought just didn't last and you didn't have money to get more. Never true 12/04/2024 PRAPARE - Transportation Answer Date Re corded In the past 12 months, has l ack of transportation kept you from medical appointments or from getting medications? No 03/2025 In the past 12 months, has l ack of transportation kept you from meetings, work, or from getting things needed for daily living? No 12/04/2024 Housing Stability Vital Sign Answer Hpan e Recorded In the last 12 months, was t here a time when you were not able to pay the mortgage or rent on time? No 12/04/2024 In the past 12 months, how m any times have you moved where you were living? 0 12/04/2024 At any time in the past 12 m [facility], were you homeless or living in a prison (including now)? No 12/04/2024 Sex and Gender Information Value Date Recorded Sex Assigned at Male 12/04/2024 11:38 PM CDT Legal Sex Male 7:07 PM CDT Gender Identity Male 12/04/2024 11:38 PM CDT Sexual Orientation Not on file Occupation Industry Job Start Date Job End Date Not on file Not on file Not on file Not on file documented as of this encounter Functional Status * Are you deaf or do you have serious difficulty hearing Answer Date of Assessment Author Status Yes 12/04/2024 11:00 PM CDT Donovan Tidwell LPN Active * Are you blind or do you have serious difficulty seeing, even when wearing glasses? Answer Date of Assessment Author Status Yes 12/04/2024 11:00 PM CDT Donovan Tidwell LPN Active * Do you have serious difficulty walking or climbing stairs? Answer Date of Assessment Author Status Yes 12/04/2024 11:00 PM CDT Donovan Tidwell LPN Active * Do you have difficulty dressing or bathing? Answer Date of Assessment Author Status Yes 12/04/2024 11:00 PM CDT Donovan Tidwell LPN Active * Because of a physical, mental, or emotional condition, do you have difficulty doing errands alone such as visiting a doctor's office or shopping? Answer Date of Assessment Author Status Yes 12/04/2024 11:00 PM CDT Donovan Tidwell LPN Active documented as of this encounter Mental Status * Because of a physical, mental, or emotional condition, do you have serious difficulty concentrating, remembering, or making decisions? Answer Entry Date Author Status No 12/04/2024 11:00 PM CDDonovan Bynum LPN Active documented in this encounter Plan of Treatment Upcoming Encounters Date Type Department Care Team (Late st Contact Info) Description 07/07/2025 11:00 AM HOME ENERGY AUDITOR Office Visit [facility] [place] [address] Stanton Valenzuela MD [address] [place] [address] 07/07/2025 11:00 AM HOME ENERGY AUDITOR Allied Health/Nurse Visit [facility] [place] [address] Stanton Valenzuela MD [address] [place], [place] [address] 10/12/2025 2:15 AM CDT [facility] [address] [place] [address] Stanton Valenzuela MD [address] [place], [place] [address] 02/07/2026 11:30 AM CDT [facility] [place] [address] Malu Woods ANP-BC [address] [facility] [address] [place] [address] documented as of this encounter Goals Goal Patient Goal Type Associated Problems Recent Progress Patient-Stated? Author Family - family caregiver with be involved in care transitions and discharge planning General No Elena Stanley, JCARLOS Safety Patient/family will have appropriate support at home upon discharge General No Elena Stanley, core composer machine tender - family caregiver with be involved in care transitions and discharge planning Lifestyle No Dara Hair RN documented as of this encounter Visit Diagnoses Not on filedocumented in this encounter Care Teams Base Loader Relationship Specialty Start Date End Date Scott Dial MD [address] [place] [address] PCP - General FAMILY PRACTICE 01/14/18 Olinda Felton AGACNP- [address] [place] [place] [place] [address] CARDIOVASCULAR DISEASE 05/29/18 Elisha Munroe MD [address] [place] [address] Surgeon NEUROLOGICAL SURGERY 11/14/21 Stanton Valenzuela MD [address] [place] [address] Consulting Physician CLINICAL CARDIAC ELECTROPHYSIOLOGY 05/02/22 Samreen Liu PA-C 9 [place] [address] Referring Physician PHYSICIAN DENTAL TECH 05/28/23 Zoie Parra NP [address] [place] [address] [address] Nurse Practitioner Nurse Practitioner Family 05/26/24 12/07/24 Franklin Costa DPM [address] [place] [address] Referring Physician PODIATRY/SURGERY 06/03/24 06/03/25 Kyle Torres MD [address] [place] [phone] VASCULAR SURGERY 11/12/24 11/12/25 Antoinette Atkins MD [address] [place] [phone] Internal Medicine - Infectious Disease 11/16/24 11/16/25 documented as of this encounter
--- OUTSIDE RECORDS SUMMARY | 2025-06-30 13:50 | XMS_ITS | Encounter Summary ---
Author Organization [facility] Address [address] [place] [address] Care Team Providers Care Lead Tinner Name Role Phone Scott Dial MD Primary Care Provider [phone] Olinda Felton AGACNP-BC Unavailable [phone] Elisha Munroe MD Unavailable [phone] Stanton Valenzuela MD Unavailable [phone] Samreen Liu PA-C Unavailable [phone] Zoie Parra NP Unavailable [phone] Franklin Costa DPM Unavailable Kyle Torres MD Unavailable Antoinette Atkins MD Unavailable [phone] Encounter Details Date Type Department Care Team (Latest Contact Info) Description 12/07/2024 [employer] Message Enc [facility] Cardi[facility] Care Unit [address] [place] [address] [facility] Provider hospital follow up call Social History Tobacco Use Types Packs/Day Years Used Date Smoking Tobacco: Former Pipe Q uit: 1970 Smokeless Tobacco: Never Alcohol Use Standard Drinks/Week Comments No 0 (1 standard drink = 0.6 oz pur e alcohol) [facility] Utilities Answer Date Recorded In the [...] No 12/04/2024 Housing Stability Vital Sign Answer Phan e Recorded In the last 12 months, was t here a time when you were not able to pay the mortgage or rent on time? No 12/04/2024 In the past 12 months, how m any times have you moved where you were living? 0 12/04/2024 At any time in the past 12 m [facility], were you homeless or living in a chcf (including now)? No 12/04/2024 Sex and Gender [...] st Contact Info) Description 07/07/2025 11:00 AM MASTER [place] Office Visit [facility] [address] [place] [address] Stanton Valenzuela MD [address] [place] [address] 07/07/2025 11:00 AM [employer] [place] Allied Health/Nurse Visit [facility] [place] [address] Stanton Valenzuela MD [address] [place], [place] [address] 10/12/2025 2:15 AM CDT [facility] [address] [place] [address] Stanton Valenzuela MD [address] [place], [place] [address] 02/07/2026 11:30 AM CDT [facility] [place] [address] Malu Woods ANP-BC [address] [facility] [address] [place] [address] documented as of this encounter Goals Goal Patient Goal Type Associated Problems Recent Progress Patient-Stated? Author Family - family caregiver with be involved in care transitions and discharge planning General No Elena Stanley, JCARLOS Safety Patient/family will have appropriate support at home upon discharge General No Elena Stanley, photo tech - family caregiver with be involved in care transitions and discharge planning Lifestyle No Dara Hair RN documented as of this encounter Visit Diagnoses Not on filedocumented in this encounter Care Teams Lead Tinner Relationship Specialty Start Date End Date Scott Dial MD [address] [place] [address] PCP - General FAMILY PRACTICE 01/14/18 Olinda Felton AGACNP- [address] [place] [address] CARDIOVASCULAR DISEASE 05/29/18 Elisha Munroe MD [address] [place] [address] Surgeon NEUROLOGICAL SURGERY 11/14/21 Stanton Valenzuela MD [address] [place] [address] Consulting Physician CLINICAL CARDIAC ELECTROPHYSIOLOGY 05/02/22 Samreen Liu PA-C [address] [place] [address] Referring Physician PHYSICIAN BUSINESS INTELLIGENCE MANAGER 05/28/23 Zoie Parra NP [address] [place] [phone] Nurse Practitioner Nurse Practitioner Family 05/26/24 12/07/24 Franklin Costa DPM [address] [place] [address] Referring Physician PODIATRY/SURGERY 06/03/24 06/03/25 Kyle Torres MD [address] [place] [phone] VASCULAR SURGERY 11/12/24 11/12/25 Antoinette Atkins MD [address] [place] [phone] Internal Medicine - Infectious Disease 11/16/24 11/16/25 documented as of this encounter
--- OUTSIDE RECORDS SUMMARY | 2025-06-30 13:50 | XMS_ITS | Encounter Summary ---
Author Organization [facility] Address [address] [place] [address] Care Team Providers Care Press Breaker Name Role Phone Scott Dial MD Primary Care Provider [phone] Gwendolyn Mcguire MD, Robert Unavailable +[phone] Malu Woods ANP-BC Unavailable + [phone] Olinda Felton AGACNP-BC Unavailable +[phone] Jess Wiley NP Unavailable Unavailable [facility] MD Unavailable [phone] Chu Varner MD Unavailable [phone] Mina Hutchins MD Unavailable +[phone] Stanton Valenzuela MD Unavailable +[phone] Samreen Liu PA-C Unavailable +[phone] Cabrera Mary MD Unavailable Antoinette Atkins MD Unavailable [phone] Jesus Abreu MD Unavailable Mina Hutchins MD Unavailable +[phone] Zoie Parra NP Unavailable +[phone] Franklin Costa DPM Unavailable Kyle Torres MD Unavailable Antoinette Atkins MD Unavailable [phone] Encounter Details Date Type Department Care Team (Late st Contact Info) Description 04/23/2022 Hospital Follow-up Call [facility] [address] [place] [address] Yajaira Villa RN Social History Tobacco Use Types Packs/Day [...] Recorded In the last 10 days, have lucina u been in contact with someone who was confirmed or suspected to have Coronavirus/COVID-19? No / Unsure 04/18/2022 9:41 AM CDT documented as of this encounter Functional Status * RETIRED Are you deaf or do you have serious difficulty hearing Answer Date of Assessment Author Status No 04/19/2022 5:00 PM CDT Activ e * RETIRED Are you blind or do you have serious difficulty seeing, even when wearing glasses? Answer Date of Assessment Author Status No 04/19/2022 5:00 PM CDT Activ e * Do you have serious difficulty walking or climbing stairs? Answer Date of Assessment Author Status No 04/19/2022 5:00 PM CDT Clarke Pleitez RN Active * Do you have difficulty dressing or bathing? Answer Date of Assessment Author Status No 04/19/2022 5:00 PM ERLINDAT Clarke Pleitez RN Active * Because of a physical, mental, or emotional condition, do you have difficulty doing errands alone such as visiting a doctor's office or shopping? Answer Date of Assessment Author Status No 04/19/2022 5:00 PM CDT Clarke Pleitez, RN Active documented as of this encounter Mental Status * Because of a physical, mental, or emotional condition, do you have serious difficulty concentrating, remembering, or making decisions? Answer Entry Date Author Status No 04/19/2022 5:00 PM CDT Clarke Pleitez RN Active documented in this encounter Plan of Treatment Upcoming Encounters Date Type Department Care Team (Late st Contact Info) Description 07/07/2025 11:00 AM AIR VICE MARSHAL Office Visit [facility] [address] [place] [address] Stanton Valenzuela MD [address] [place] [address] 07/07/2025 11:00 AM AIR VICE MARSHAL Allied Health/Nurse Visit [facility] [address] [place] [phone] Stanton Valenzuela MD [address] [place], [place] [address] [phone] 10/12/2025 2:15 AM CDT Allied Health/Nurse Visit [facility] [address] [place] [address] Stanton Valenzuela MD [address] [place] [address] 02/07/2026 11:30 AM CDT Office Visit [facility] [address] [place] [address] Malu Woods, ANP-BC [address] [facility] [address] [place] [address] documented as of this encounter Goals Goal Patient Goal Type Associated Problems Recent Progress Patient-Stated? Author Family - family caregiver with be involved in care transitions and discharge planning General No Elena Stanley, JCARLOS Safety Patient/family will have appropriate support at home upon discharge General Elena Martinez, sourcing consultant - family caregiver with be involved in care transitions and discharge planning Lifestyle Dara Hay RN documented as of this encounter Visit Diagnoses Not on filedocumented in this encounter Care Teams Press Breaker Relationship Specialty Start Date End Date Scott Dial MD [address] [place] [address] PCP - General FAMILY PRACTICE 01/14/18 Melvin Snow MD [address] [place] [address] [employer] Worker INTERVENTIONAL CARDIOLOGY 01/14/18 05/27/23 Maul Woods [facility]- [facility] [address] [address] CARDIOVASCULAR DISEASE 01/14/18 Olinda Felton AGACNP- [address] [address] CARDIOVASCULAR DISEASE 05/29/18 Jess Wiley, SENIOR NURSE MANAGER [address] [address] Nurse Practitioner Electrophysiology 06/13/18 05/27/23 Elisha Munroe MD [address] [place] [address] Surgeon NEUROLOGICAL SURGERY 11/14/21 Chu Varner MD [address] [place] [address] Consulting Physician INTERVENTIONAL CARDIOLOGY 04/16/22 08/12/24 Mina Hutchins MD [address] [place] [address] Consulting Physician INTERVENTIONAL CARDIOLOGY 04/23/22 12/06/24 Stanton Valenzuela MD [address] [place] [address] Consulting Physician CLINICAL CARDIAC ELECTROPHYSIOLOGY 05/02/22 Samreen Liu PA-C [address] [place] [address] Referring Physician PHYSICIAN MUFFLER TENDER 05/28/23 Cabrera Mary MD [address] [place] [address] Consulting Physician CARDIOVASCULAR DISEASE 10/23/23 Antoinette Atkins MD [address] [address] Internal Medicine - Infectious Disease 10/30/23 10/29/24 [place] [address] [phone] Surgeon WOUND CARE 10/30/23 10/29/24 Mina Hutchins MD [address] [place] [address] Consulting Physician INTERVENTIONAL CARDIOLOGY 02/11/24 12/06/24 Zoie Parra NP [address] [place] [address] [phone] Nurse Practitioner Nurse Practitioner Family 05/26/24 12/07/24 Franklin Costa DPM [address] [address] Referring Physician PODIATRY/SURGERY 06/03/24 06/03/25 Kyle Torres MD [address] [place] [address] VASCULAR SURGERY 11/12/24 11/12/25 Antoinette Atkins MD [facility] [address] [address] Internal Medicine - Infectious Disease 11/16/24 11/16/25 documented as of this encounter
--- OUTSIDE RECORDS SUMMARY | 2025-06-30 13:50 | XMS_ITS | Encounter Summary ---
Author Organization [facility] Address [address] [place] [address] Care Team Providers Care Reinsurance Analyst Name Role Phone Scott Dial MD Primary Care Provider [phone] Gwendolyn Mcguire MD, Robert Unavailable [phone] Malu Woods ANP-BC Unavailable + [phone] Romel Santamaria MD Unavailable Unavailable Olinda Felton AGACNP-BC Unavailable +[phone] Niko Byrnes MD Unavailable UnavailJess Salcedo NP Unavailable Unavailable Elisha Munroe MD Unavailable [phone] Chu Varner MD Unavailable [phone] Mina Hutchins MD Unavailable +[phone] Stanton Valenzuela MD Unavailable +[phone] Samreen Liu PA-C Unavailable +[phone] Cabrera Mary MD Unavailable Antoinette Atkins MD Unavailable [phone] Jesus Abreu MD Unavailable Mina Hutchins MD Unavailable +[phone] Zoie Parra NP Unavailable [phone] [place], Franklin DPM Unavailable Kyle Torres MD Unavailable Antoinette Atkins MD Unavailable [phone] Encounter Details Date Type Department Care Team (Late st Contact Info) Description 04/14/2019 Abstract [facility] [address] [place] [phone] Niko Byrnes MD Social History Tobacco Use Types Packs/Day Years [...] on file documented as of this encounter Plan of Treatment Upcoming Encounters Date Type Department Care Team (Late st Contact Info) Description 07/07/2025 11:00 AM PELLETIZER Office Visit [facility] [address] [place] [phone] Stanton Valenzuela MD [address] [place] [address] 07/07/2025 11:00 AM PELLETIZER Allied Health/Nurse Visit [facility] [place] [address] Stanton Valenzuela MD [address] [place] [address] 10/12/2025 2:15 AM CDT [facility] [address] [place] [phone] Stanton Valenzuela MD [address] [place] [address] 02/07/2026 11:30 AM CDT Office Visit [facility] [address] [place] [address] Malu Woods, ANP-BC [address] [facility] [address] [place] [phone] documented as of this encounter Procedures Procedure Name Priority Date/Time Associated Diagnosis Comments COMPREHENSIVE METABOLIC PANEL Routine 04/14/2019 10:22 AM CDT terminologist current use of antiarrhythmic drug Current use of termination clerk anticoagulation THYROXINE, FREE (FT4) Routine 04/14/2019 10:22 AM CDT [facility] current use of antiarrhythmic drug Current use of fdc anticoagulation THYROID STIM HORMONE TSH Routine 04/14/2019 10:22 AM CDT [facility] current use of antiarrhythmic drug Current use of fdc anticoagulation documented in this encounter Results * T4; FREE (04/14/2019 10:22 AM CDT) FREE T4 1.07 0.61 - 1.12 ng/dL 04/14/2019 10:2 2 AM CDT us Niko Byrnes MD LABORATORY Final Resul t * TSH (04/14/2019 10:22 AM CDT) TSH 4.549 0.450 - 5.330 uIU/ml 04/14/2019 10:2 2 AM CDT us Niko Byrnes MD LABORATORY Final Resul t * (ABNORMAL) COMPREHENSIVE METABOLIC PANEL (04/14/2019 10:22 AM CDT) Pathologist [facility] SODIUM S/P/B 131(A) 135 - 153 mmol/L POTASSIUM S/P/B 4.2 3.5 - 5.3 mmol/L CO2 27.0 21.0 - 31.0 mmol/L CHLORIDE S/P/B 96(A) 101 - 111 mmol/L GLUCOSE 83 70 - 110 mg/dL CALCIUM S/P/B 8.7 8.5 - 10.5 mg/dL BUN 11.0 7.0 - 22.0 mg/dL CREATININE S/P/B 1.42(A) 0.5 - 1.4 mg/dL EGFR AFR. AMER. 58 EGFR NON-AFR. AMER. 48 <=90 ALKALINE PHOSPHATASE S/P/B 75 42 - 121 IU/L ALT 20 10 - 60 IU/L AST 19 10 - 42 IU/L BILIRUBIN TOTAL S/P/B 0.7 0.0 - 1.2 mg/dL ALBUMIN S/P/B 3.6 3.2 - 5.5 IU/L TOTAL PROTEIN S/P/B 6.9 6.0 - 8.0 g/dL 04/14/2019 10:2 2 AM CDT Niko Byrnes MD LABORATORY Final Resul t documented in this encounter Visit Diagnoses Diagnosis terminologist current use of antiarrhythmic drug Current use of fdc anticoagulation Encounter for long-term (current) use of anticoagulants documented in this encounter Additional Health Concerns Infection Onset Date Last Indicated Resolved Time COVID-19 Rule Out 10/08/2020 10/08/2020 10/09/2020 2:52 PM CDT COVID-19 Rule Out 03/24/2021 03/24/2021 03/24/2021 8:11 PM CDT COVID-19 Rule Out 04/14/2021 04/14/2021 04/14/2021 8:33 PM CDT COVID-19 Rule Out 10/18/2021 10/19/2021 10/19/2021 2:23 PM CDT documented as of this encounter Care Teams Reinsurance Analyst Relationship Specialty Start Date End Date Scott Dial MD [address] [place] [address] PCP - General FAMILY PRACTICE 01/14/18 Melvin Snow MD [address] [place] [address] [employer] Machine INTERVENTIONAL CARDIOLOGY 01/14/18 05/27/23 Malu Woods, [facility]- [address] [place] [phone] CARDIOVASCULAR DISEASE 01/14/18 Romel Santamaria MD [address] [place] [phone] CARDIOTHORACIC SURGERY 04/10/18 04/15/22 Olinda Felton [facility]- [address] [address] CARDIOVASCULAR DISEASE 05/29/18 Niko Byrnes MD [address] [address] EP [employer]rer Machine CLINICAL CARDIAC ELECTROPHYSIOLOGY 06/13/18 04/19/22 Jess Wiley NP [address] [address] Nurse Practitioner Electrophysiology 06/13/18 05/27/23 Elisha Munroe MD [address] [place] [address] Surgeon NEUROLOGICAL SURGERY 11/14/21 Chu Varner MD [address] [place] [address] Consulting Physician INTERVENTIONAL CARDIOLOGY 04/16/22 08/12/24 Mina Hutchins MD [address] [place] [address] Consulting Physician INTERVENTIONAL CARDIOLOGY 04/23/22 12/06/24 Stanton Valenzuela MD [address] [place] [address] Consulting Physician CLINICAL CARDIAC ELECTROPHYSIOLOGY 05/02/22 Samreen Liu PA-C [address] [place] [address] Referring Physician PHYSICIAN PROPERTY CUSTODIAN 05/28/23 Cabrera Mary MD [address] [place] [address] Consulting Physician CARDIOVASCULAR DISEASE 10/23/23 Antoinette Atkins MD [address] [place] [phone] Internal Medicine - Infectious Disease 10/30/23 10/29/24 [place] [address] [phone] Surgeon WOUND CARE 10/30/23 10/29/24 Mina Hutchins MD [address] [place] [address] Consulting Physician INTERVENTIONAL CARDIOLOGY 02/11/24 12/06/24 Zoie Parra NP [address] [place] [address] [phone] Nurse Practitioner Nurse Practitioner Family 05/26/24 12/07/24 Franklin Costa DPM [address] [address] Referring Physician PODIATRY/SURGERY 06/03/24 06/03/25 Kyle Torres MD [address] [place] [address] VASCULAR SURGERY 11/12/24 11/12/25 Antoinette Atkins MD [facility] [address] [address] Internal Medicine - Infectious Disease 11/16/24 11/16/25 documented as of this encounter
--- OUTSIDE RECORDS SUMMARY | 2025-06-30 13:50 | XMS_ITS | Encounter Summary ---
Author Organization [facility] Address [address] [place] [address] Care Team Providers Care Zinc Chloride Operator Name Role Phone Scott Dial MD Primary Care Provider + [phone] Gwendolyn Mcguire MD, Robert Unavailable [phone] Malu Woods ANP-BC Unavailable + [phone] Olinda Felton AGACNP-BC Unavailable [phone] Niko Byrnes MD Unavailable UnavailJess Salcedo NP Unavailable Unavailable [facility] MD Unavailable [phone] Chu Varner MD Unavailable [phone] Mina Hutchins MD Unavailable +[phone] Stanton Valenzuela MD Unavailable +[phone] Samreen Liu PA-C Unavailable +[phone] Cabrera Mary MD Unavailable Antoinette Atkins MD Unavailable [phone] Jesus Abreu MD Unavailable Mina Hutchins MD Unavailable [phone] Zoie Parra NP Unavailable [phone] Franklin Costa DPM Unavailable Kyle Torres MD Unavailable Antoinette Atkins MD Unavailable [phone] Encounter Details Date Type Department Care Team (Late st Contact Info) Description 04/16/2022 Hospital Orders Only [facility] Anesthesia [address] [place] [address] Courtney Cali RN Anesthesia Record Procedure Summary Procedure Name Responsible Anesthesiologist Anesthesia Start Time Anesthesia Stop Time XA MITRAL VALVE CLIPPING Emanuel Morgan MD 04/19/22 1202 04/19/22 1500 Events Date Time Event Comment 04/19/2022 0957 0957 AN Anesthesia Prepped 1202 An Start Patient ID and consent checked and patient reassessed. 1202 An Start Data 1207 Preoxygenation 1207 An Induction The patient was reevaluated immediately before moderate or deep sedation use and before anesthesia induction. 1210 An Intubation 1222 Anesthesia Ready 1327 An Data Art Movement due to procedural activity 1330 Quick Note ACT 312 1358 Quick Note ACT 289 1422 Quick Note ACT = 295 1448 An Extubation 1450 Face Mask Applied 1454 an stop data 1500 Post Anesthetic Care Handoff I completed my handoff to the receiving nurse during which we: 1. Identified the patient 2. Identified the responsible provider 3. Reviewed the pertinent medical history 4. Discussed the surgical course 5. Reviewed intra-op anesthesia management and issues during anesthesia 6. Set expectations for post-procedure period 7. Allowed opportunity for questions and acknowledgement of understanding. 1500 An Stop Meds * Agents No agents on file. * Blood No blood administrations on file. Lines, Drains, and Airways Type Details Placement Removal Peripheral IV Placement Date: 03/30 09/19; Placement Time: 827; Placed Outside of This Facility?: No; Size: 20 G; Orientation: Left; Location: Hand; Site Prep: Chlorhexidine; Local Anesthetic: None; Inserted By: ARUN GARBER; Insertion attempts: 1; Ultrasound-guided Placement?: No; Patient Tolerance: Tolerated well; Removal Date: 04/20/22; Removal Time: 1125 04/19/22 08 by Felipa Llamas RN 04/20/221124 by Ernestina Parker RN ETT Placement Date: 03/30 09/19; Placement Time: 1210; Mask Ventilate: Prior to intubation, Easy; Size (mm) : 7.5; Endotracheal: Oral, Oropharyngeal airway, Stylet used; Blade Type: MAC 3; Placement Method: Direct Laryngoscopy (blade type in comment); View Grade: 1; Viewable Anatomy: Epiglottis, Arytenoid, Vocal cords; Insertion Attempts: 1; Placement Verified By: Capnography, Auscultation, Chest Rise; Placed By: Other (Comment) (JO Hitchcock); Removal Date: 04/19/22; Removal Time: 1448 04/19/22 1210 by Mariana Aleman CRNA 04/19/22 1448 by Mariana Aleman CRNA Arterial Line Placement Date: 03/30 09/19; Placement Time: 1218 (created via procedure documentation); Size: 20; Orientation: Right; Location: Radial; Site Prep: Chlorhexidine; Insertion Attempts: 1; Removal Date: 04/19/22; Removal Time: 1618; Removal Reason: Patient Discharged 04/19/22 1218 by Mariana Aleman CRNA 04/19/22 1618 by Marian Killian RN Peripheral IV Placement Date: 03/30 09/19; Placement Time: 1220; Size: 18 G; Orientation: Left; Location: Forearm; Site Prep: Chlorhexidine; Inserted By: Adam Morgan MD; Insertion attempts: 1; Removal Date: 04/20/22; Removal Time: 1124 04/19/22 1220 by Mariana Aleman CRNA 04/20/22 1124 by Ernestina Parker RN documented in this encounter Social History Tobacco Use Types Packs/Day Years [...] In the last 10 days, have lucina abdalla been in contact with someone who was confirmed or suspected to have Coronavirus/COVID-19? No / Unsure 04/18/2022 9:41 AM CDT documented as of this encounter Functional Status * Question Answer Date of Assessment Author Status Do you have serious difficulty walking or climbing stairs? No 04/19/2022 5:00 PM ERLINDAT Clarke Pleitez RN Ac tive * Question Answer Date of Assessment Author Status Do you have difficulty dressing or bathing? No 04/19/2022 5:00 PM ERLINDAT Clarke Pleitez RN Active Because of a physical, mental, or emotional condition, do you have difficulty doing errands alone such as visiting a doctor's office or shopping? No 04/19/2022 5:00 PM ERLINDAT Clarke Pleitez RN Acti ve * RETIRED Are you deaf or do you have serious difficulty hearing Answer Date of Assessment Author Status No 10/18/2021 10:29 PM CDT Acti ve * RETIRED Are you blind or do you have serious difficulty seeing, even when wearing glasses? Answer Date of Assessment Author Status Yes 10/18/2021 10:29 PM CDT Acti ve * Do you have serious difficulty walking or climbing stairs? Answer Date of Assessment Author Status Yes 10/18/2021 10:29 PM ERLINDAT Karin Lloyd RN A ctive * Do you have difficulty dressing or bathing? Answer Date of Assessment Author Status No 10/18/2021 10:29 PM ERLINDAT Karin Lloyd RN A ctive * Because of a physical, mental, or emotional condition, do you have difficulty doing errands alone such as visiting a doctor's office or shopping? Answer Date of Assessment Author Status No 10/18/2021 10:29 PM ERLINDAT Karin Lloyd RN A ctive * Calculated C-SSRS Risk Score (Lifetime/Recent) Answer Date of Assessment Author Status No Risk Indicated 04/19/2022 8:10 AM ERLINDAT Felipa Llamas RN Active * [place] Suicide Severity Rating Scale (Screener/Recent Self-Report) Question Answer Date of Assessment Author Status 1. Wish to be (Past 1 Month) No 04/19/2022 8:10 AM CDT Felipa Llamas RN Activ e 2. Non-Specific Active Suicidal Thoughts (Past 1 Month) No 04/19/2022 8:10 AM CDT Felipa Llamas RN Activ e 6. Suicidal Behavior (Lifetime) No 04/19/2022 8:10 AM CDT Felipa Llamas RN Activ e documented as of this encounter Mental Status * Question Answer Entry Date Author Status Because of a physical, mental, or emotional condition, do you have serious difficulty concentrating, remembering, or making decisions? No 04/19/2022 5:00 PM CDT Clarke Pleitez RN Active * Because of a physical, mental, or emotional condition, do you have serious difficulty concentrating, remembering, or making decisions? Answer Entry Date Author Status No 10/18/2021 10:29 PM CDT Karin Lloyd RN A ctive documented in this encounter Plan of Treatment Upcoming Encounters Date Type Department Care Team (Late st Contact Info) Description 07/07/2025 11:00 AM MOBILE TESTER Office Visit [facility] [address] [place] [address] Stanton Valenzuela MD [address] [place] [address] 07/07/2025 11:00 AM MOBILE TESTER Allied Health/Nurse Visit [facility] [address] [place] [address] Stanton Valenzuela MD [address] [place] [address] 10/12/2025 2:15 AM CDT Allied Health/Nurse Visit [facility] [address] [place] [address] Stanton Valenzuela MD [address] [place] [address] 02/07/2026 11:30 AM CDT Office Visit [facility] [place] [address] Malu Woods ANP-LUCILLE [address] [phone] documented as of this encounter Goals Goal Patient Goal Type Associated Problems Recent Progress Patient-Stated? Author Family - family caregiver with be involved in care transitions and discharge planning Elena Bowers, RN Safety Patient/family will have appropriate support at home upon discharge General Elena Martinez, JCARLOS documented as of this encounter Visit Diagnoses Not on filedocumented in this encounter Care Teams Zinc Chloride Operator Relationship Specialty Start Date End Date Scott Dial MD [address] [place] [phone] PCP - General FAMILY PRACTICE 01/14/18 Melvin Snow MD [address] [place] [phone] [place] Paint Laboratory Technician INTERVENTIONAL CARDIOLOGY 01/14/18 05/27/23 Malu Woods ANP-BC [address] [phone] CARDIOVASCULAR DISEASE 01/14/18 Olinda Felton AGACNP-LUCILLE [address] [address] CARDIOVASCULAR DISEASE 05/29/18 Niko Byrnes MD [address] [address] EP Paint Laboratory Technician CLINICAL CARDIAC ELECTROPHYSIOLOGY 06/13/18 04/19/22 Jess Wiley, BOX ORDER PERSON [address] [place] [address] Nurse Practitioner Electrophysiology 06/13/18 05/27/23 Elisha Munroe MD [address] [place] [address] Surgeon NEUROLOGICAL SURGERY 11/14/21 Chu Varner MD [address] [place] [address] Consulting Physician INTERVENTIONAL CARDIOLOGY 04/16/22 08/12/24 Mina Hutchins MD [address] [place] [address] Consulting Physician INTERVENTIONAL CARDIOLOGY 04/23/22 12/06/24 Stanton Valenzuela MD [address] [place] [address] Consulting Physician CLINICAL CARDIAC ELECTROPHYSIOLOGY 05/02/22 Samreen Liu PA-C [address] [place] [address] Referring Physician PHYSICIAN LOGGING CREW FOREMAN 05/28/23 Cabrera Mary MD [address] [place] [address] [place] [address] Consulting Physician CARDIOVASCULAR DISEASE 10/23/23 Antoinette Atkins MD [address] [phone] Internal Medicine - Infectious Disease 10/30/23 10/29/24 [place] [address] [place] [address] Surgeon WOUND CARE 10/30/23 10/29/24 Mina Hutchins MD [address] [place] [address] Consulting Physician INTERVENTIONAL CARDIOLOGY 02/11/24 12/06/24 Zoie Parra NP [address] [place] [address] [address] [place] [address] Nurse Practitioner Nurse Practitioner Family 05/26/24 12/07/24 Franklin Costa DPM [address] [place] [address] Referring Physician PODIATRY/SURGERY 06/03/24 06/03/25 Kyle Torres MD [address] [place] [address] VASCULAR SURGERY 11/12/24 11/12/25 Antoinette Atkins MD [address] [place] [phone] Internal Medicine - Infectious Disease 11/16/24 11/16/25 documented as of this encounter
--- OUTSIDE RECORDS SUMMARY | 2025-06-30 13:50 | XMS_ITS | Encounter Summary ---
Author Organization [facility] Address [address] [place] [address] Care Team Providers Care Ore Dressing Engineer Name Role Phone Scott Dial MD Primary Care Provider [phone] Gwendolyn Mcguire MD, Robert Unavailable [phone] Malu Woods ANP-BC Unavailable + [phone] Olinda Felton AGACNP-BC Unavailable +[phone] Jess Wiley NP Unavailable Unavailable [facility]a Blanca MD Unavailable +[phone] Chu Varner MD Unavailable [phone] Mina Hutchins MD Unavailable +[phone] Stanton Valenzuela MD Unavailable +[phone] Samreen Liu PA-C Unavailable +[phone] Cabrera Mary MD Unavailable Antoinette Atkins MD Unavailable Jesus Abreu MD Unavailable Mina Hutchins MD Unavailable +[phone] Zoie Parra NP Unavailable +- [phone] Franklin Costa DPM Unavailable Kyle Torres MD Unavailable Antoinette Atkins MD Unavailable [phone] Encounter Details Date Type Department Care Team (Late st Contact Info) Description 07/12/2022 Abstract [facility] [address] [place] [address] Malu Woods, ANP- [address] [facility] [address] [place] [address] Social History Tobacco Use Types [...] Coronavirus/COVID-19? Unable to assess 06/25/2022 7:59 AM SENIOR SAFETY SUPPORT MANAGER documented as of this encounter Functional Status [...] Assessment Author Status No 05/16/2022 10:00 PM ERLNIDAT Faustina Humphries RN Active * Because of [...] st Contact Info) Description 07/07/2025 11:00 AM SENIOR SAFETY SUPPORT MANAGER Office Visit [facility] [address] [place] [address] Stanton Valenzuela MD [address] [place] [address] 07/07/2025 11:00 AM SENIOR SAFETY SUPPORT MANAGER Allied Health/Nurse Visit [facility] [address] [place] [phone] Stanton Valenzuela MD [address] [place], [place] [address] [phone] 10/12/2025 2:15 AM CDT Allied Health/Nurse Visit [facility] [address] [place] [address] Stanton Valenzuela MD [address] [place] [address] 02/07/2026 11:30 AM CDT Office Visit [facility] [address] [place] [address] [phone] Malu Woods, ANP-BC [address] [facility] [address] [place] [address] documented as of this encounter Goals Goal Patient Goal Type Associated Problems Recent Progress Patient-Stated? Author Family - family caregiver with be involved in care transitions and discharge planning General Elena Martinez, RN Safety Patient/family will have appropriate support at home upon discharge General Elena Martinez, park maintenance technician - family caregiver with be involved in care transitions and discharge planning Lifestyle No Dara Hair RN documented as of this encounter Procedures Procedure Name Priority Date/Time Associated Diagnosis Comments PRO-BRAIN NATRIURETIC PEPTIDE Routine 07/09/2022 Paroxysmal atrial fibrillation Hypertension, unspecified type Hypertensive heart disease with heart failure BASIC METABOLIC PANEL Routine 07/09/2022 Paroxysmal atrial fibrillation Hypertension, unspecified type documented in this encounter Results * BASIC METABOLIC PANEL (07/09/2022) SODIUM S/P/B 128 137 - 145 POTASSIUM S/P/B 4.0 3.4 - 5.0 CO2 30 22 - 30 CHLORIDE S/P/B 94 98 - 107 GLUCOSE 94 65 - 110 mg/dL CALCIUM S/P/B 8.7 8.4 - 10.2 BUN 16 9 - 20 CREATININE S/P/B 1.20 0.7 - 1.3 EGFR AFR. AMER. - <=90 EGFR NON-AFR. AMER. 85 <=90 07/09/2022 Malu Woods ANP-BC LABORATORY Final Re sult * PRO BNP ([facility]) (07/09/2022) PRO-BRAIN NATRIURETIC PEPTIDE 1,900 5 - 100 07/09/2022 Malu Woods ANP-BC LABORATORY Final Re sult documented in this encounter Visit Diagnoses Diagnosis Paroxysmal atrial fibrillation ([facility]/HCC) Atrial fibrillation Hypertension, unspecified type Hypertensive heart disease with heart failure ([facility] HHS/HCC) Unspecified hypertensive heart disease with heart failure documented in this encounter Care Teams Ore Dressing Engineer Relationship Specialty Start Date End Date Scott Dial MD [address] [place] [address] PCP - General FAMILY PRACTICE 01/14/18 Melvin Snow MD [address] [place] [address] [facility] Director INTERVENTIONAL CARDIOLOGY 01/14/18 05/27/23 Malu Woods, ANP- [address] [facility] [address] [place] [address] CARDIOVASCULAR DISEASE 01/14/18 Olinda Felton AGACNP- [address] [address] CARDIOVASCULAR DISEASE 05/29/18 Jess Wiley NP [address] [address] Nurse Practitioner Electrophysiology 06/13/18 05/27/23 Elisha Munroe MD [address] [place] [address] Surgeon NEUROLOGICAL SURGERY 11/14/21 Chu Varner MD [address] [place] [address] Consulting Physician INTERVENTIONAL CARDIOLOGY 04/16/22 08/12/24 Mina Hutchins MD [address] [place] [address] Consulting Physician INTERVENTIONAL CARDIOLOGY 04/23/22 12/06/24 Stanton Valenzuela MD [address] [place] [address] Consulting Physician CLINICAL CARDIAC ELECTROPHYSIOLOGY 05/02/22 Samreen Liu PA-C [address] [place] [address] Referring Physician PHYSICIAN FOAM RUBBER MIXER 05/28/23 Cabrera Mary MD [address] [place] [address] [place] [address] Consulting Physician CARDIOVASCULAR DISEASE 10/23/23 Antoinette Atkins MD [address] [phone] Internal Medicine - Infectious Disease 10/30/23 10/29/24 [place] [address] [facility] [address] [place] [address] Surgeon WOUND CARE 10/30/23 10/29/24 Mina Hutchins MD [address] [place] [address] Consulting Physician INTERVENTIONAL CARDIOLOGY 02/11/24 12/06/24 Zoie Parra NP [address] [place] [address] [address] Nurse Practitioner Nurse Practitioner Family 05/26/24 12/07/24 Franklin Costa DPM [address] [place] [address] Referring Physician PODIATRY/SURGERY 06/03/24 06/03/25 Kyle Torres MD [address] [place] [address] VASCULAR SURGERY 11/12/24 11/12/25 Antoinette Atkins MD [address] [place] [address] Internal Medicine - Infectious Disease 11/16/24 11/16/25 documented as of this encounter
--- OUTSIDE RECORDS SUMMARY | 2025-06-30 13:50 | XMS_ITS | Patient Health Record ---
Author Organization 1 OF Khoa haywrad DPM [facility] Address [address] [facility] [address] [place] [address] Care Team Providers Care Oil Scout Name Role Phone Maty Kumar Unavailable [phone] Reason For Referral No Information Problems Problem Type SNOMED Code ICD Code Onset Dates Problem Status W/U Status Risk Notes Problem Peripheral vascular disease (603400231) Other specified peripheral vascular diseases (I73.89) Active confirmed Problem Chronic ulcer of foot (962413246) Non-pressure chronic ulcer of other part of unspecified foot with unspecified severity (L97.509) Active confirmed Problem Non-pressure chronic ulcer of other part of right foot limited to breakdown of skin (L97.511) Active confirmed Problem Chronic ulcer of foot (249031325) Non-pressure chronic ulcer of other part of left foot with fat layer exposed (L97.522) Active confirmed Problem 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 (4095574582349) 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 Problem 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) Type 2 diabetes mellitus with other circulatory complications (E11.59) Active confirmed Problem 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) Active confirmed Encounters Encounter Location Date Provider Diagnosis [facility] [address] [id number] 04/16/2025 Maty Kumar Non-pressure chronic ulcer of other part of left foot with fat layer exposed L97.522 ; Type 2 diabetes mellitus with foot ulcer E11.621 ; Non-pressure chronic ulcer of other part of right foot limited to breakdown of skin L97.511 ; Other specified peripheral vascular diseases I73.89 and Type 2 diabetes mellitus with other circulatory complications E11.59 [facility] [address] [id number] 04/23/2025 Maty Kumar Non-pressure chronic ulcer of other part of left foot with fat layer exposed L97.522 ; Type 2 diabetes mellitus with foot ulcer E11.621 ; Non-pressure chronic ulcer of other part of right foot limited to breakdown of skin L97.511 ; Other specified peripheral vascular diseases I73.89 and Type 2 diabetes mellitus with other circulatory complications E11.59 [facility] [address] [id number] 04/30/2025 Maty Kumar Non-pressure chronic ulcer of other part of left foot with fat layer exposed L97.522 ; Type 2 diabetes mellitus with foot ulcer E11.621 ; Other specified peripheral vascular diseases I73.89 and Type 2 diabetes mellitus with other circulatory complications E11.59 [facility] [address] [id number] 05/07/2025 Maty Kumar Non-pressure chronic ulcer of other part of left foot with fat layer exposed L97.522 ; Type 2 diabetes mellitus with foot ulcer E11.621 ; Other specified peripheral vascular diseases I73.89 and Type 2 diabetes mellitus with other circulatory complications E11.59 [facility] [address] [id number] 05/14/2025 Maty Kumar Non-pressure chronic ulcer of other part of left foot with fat layer exposed L97.522 ; Type 2 diabetes mellitus with foot ulcer E11.621 ; Other specified peripheral vascular diseases I73.89 and Type 2 diabetes mellitus with other circulatory complications E11.59 [facility] [address] [id number] 05/28/2025 Maty Kumar Non-pressure chronic ulcer of other part of left foot with fat layer exposed L97.522 ; Type 2 diabetes mellitus with foot ulcer E11.621 ; Other specified peripheral vascular diseases I73.89 and Type 2 diabetes mellitus with other circulatory complications E11.59 [facility] [address] [id number] 06/04/2025 Maty Kumar Type 2 diabetes mellitus with foot ulcer E11.621 ; Other specified peripheral vascular diseases I73.89 ; Type 2 diabetes mellitus with other circulatory complications E11.59 and Non-pressure chronic ulcer of other part of left foot with bone involvement without evidence of necrosis L97.526 Assessments Encounter Date Diagnosis (ICD Code) Assessment Notes Treatment Notes Treatment Clinical Notes Section Notes 04/16/2025 Non-pressure chronic ulcer of other part of left foot with fat layer exposed (ICD-10 - L97.522) 04/16/2025 Type 2 diabetes mellitus with foot ulcer (ICD-10 - E11.621) 04/23/2025 Non-pressure chronic ulcer of other part of left foot with fat layer exposed (ICD-10 - L97.522) 04/30/2025 Non-pressure chronic ulcer of other part of left foot with fat layer exposed (ICD-10 - L97.522) 04/30/2025 Type 2 diabetes mellitus with foot ulcer (ICD-10 - E11.621) 05/07/2025 Non-pressure chronic ulcer of other part of left foot with fat layer exposed (ICD-10 - L97.522) 05/14/2025 Non-pressure chronic ulcer of other part of left foot with fat layer exposed (ICD-10 - L97.522) 06/04/2025 Other specified peripheral vascular diseases (ICD-10 - I73.89) 06/04/2025 Type 2 diabetes mellitus with foot ulcer (ICD-10 - E11.621) 05/28/2025 Non-pressure chronic ulcer of other part of left foot with fat layer exposed (ICD-10 - L97.522) 05/28/2025 Type 2 diabetes mellitus with foot ulcer (ICD-10 - E11.621) 06/04/2025 Type 2 diabetes mellitus with other circulatory complications (ICD-10 - E11.59) 05/14/2025 Type 2 diabetes mellitus with foot ulcer (ICD-10 - E11.621) 05/07/2025 Type 2 diabetes mellitus with foot ulcer (ICD-10 - E11.621) 04/30/2025 Other specified peripheral vascular diseases (ICD-10 - I73.89) 04/23/2025 Type 2 diabetes mellitus with foot ulcer (ICD-10 - E11.621) 04/16/2025 Non-pressure chronic ulcer of other part of right foot limited to breakdown of skin (ICD-10 - L97.511) 04/16/2025 Other specified peripheral vascular diseases (ICD-10 - I73.89) 04/23/2025 Non-pressure chronic ulcer of other part of right foot limited to breakdown of skin (ICD-10 - L97.511) 04/30/2025 Type 2 diabetes mellitus with other circulatory complications (ICD-10 - E11.59) 05/07/2025 Other specified peripheral vascular diseases (ICD-10 - I73.89) 05/14/2025 Other specified peripheral vascular diseases (ICD-10 - I73.89) 05/28/2025 Other specified peripheral vascular diseases (ICD-10 - I73.89) 06/04/2025 Non-pressure chronic ulcer of other part of left foot with bone involvement without evidence of necrosis (ICD-10 - L97.526) 05/14/2025 Type 2 diabetes mellitus with other circulatory complications (ICD-10 - E11.59) 05/28/2025 Type 2 diabetes mellitus with other circulatory complications (ICD-10 - E11.59) 05/07/2025 Type 2 diabetes mellitus with other circulatory complications (ICD-10 - E11.59) 04/16/2025 Type 2 diabetes mellitus with other circulatory complications (ICD-10 - E11.59) 04/23/2025 Other specified peripheral vascular diseases (ICD-10 - I73.89) 04/23/2025 Type 2 diabetes mellitus with other circulatory complications (ICD-10 - E11.59) Plan Of Treatment No Information Insurance Providers Payer Name Payer Address Payer Phone Subscriber Number Group Number Insured Name Patient Relationship to Insured Coverage Start Date Coverage End Date Medicare [address] [facility] MARILU watson [id number] Khanh Randall Self - patient is the insured [facility] and [facility] [address] [place] [address] [id number] Khanh Randall Self - patient is the insured
--- OUTSIDE RECORDS SUMMARY | 2025-06-30 13:50 | XMS_ITS | Encounter Summary ---
Author Organization [facility] Address [address] [place] [address] Care Team Providers Care Unit Control Clerk Name Role Phone Scott Dial MD Primary Care Provider [phone] Gwendolyn Mcguire MD, Robert Unavailable [phone] Malu Woods ANP-BC Unavailable + [phone] Olinda Felton AGACNP-BC Unavailable [phone] Niko Byrnes MD Unavailable UnavailJess Salcedo NP Unavailable Unavailable [facility] Blanca MD Unavailable [phone] Chu Varner MD Unavailable [phone] Mina Hutchins MD Unavailable +[phone] Stanton Valenzuela MD Unavailable +[phone] Samreen Liu PA-C Unavailable +[phone] Cabrera Mary MD Unavailable Antoinette Atkins MD Unavailable [phone] Jesus Abreu MD Unavailable Mina Hutchins MD Unavailable [phone] Zoie Parra NP Unavailable [phone] Franklin Costa DPM Unavailable Kyle Torres MD Unavailable Antoinette Atkins MD Unavailable [phone] Encounter Details Date Type Department Care Team (Late st Contact Info) Description 04/16/2022 [email or web address] [facility] [address] [place] [address] Bing, [facility] Provider [employer] Instructions Social History Tobacco Use Types Packs/Day Years [...] or climbing stairs? No 04/19/2022 5:00 PM CDT Clarke Pleitez RN Act jayden * Question Answer Date of Assessment Author Status Do you have difficulty dressing or bathing? No 04/19/2022 5:00 PM CDT Clarke Pleitez RN Active Because of a physical, mental, or emotional condition, do you have difficulty doing errands alone such as visiting a doctor's office or shopping? No 04/19/2022 5:00 PM CDT Clarke Pleitez RN Acti ve * RETIRED [...] Author Status Yes 10/18/2021 10:29 PM CDT Karin Lloyd RN A ctive * Do [...] PM CDT Karin Lloyd RN A ctive * Calculated C-SSRS Risk Score (Lifetime/Recent) Answer Date of Assessment Author Status No Risk Indicated 04/19/2022 8:10 AM ERLINDAT Felipa Llamas RN Active * [place] Suicide Severity Rating Scale (Screener/Recent Self-Report) Question Answer Date of Assessment Author Status 1. Wish to be (Past 1 Month) No 04/19/2022 8:10 AM ERLINDAT Felipa Llamas RN Activ e 2. Non-Specific Active Suicidal Thoughts (Past 1 Month) No 04/19/2022 8:10 AM ERLINDAT Felipa Llamas RN Activ e 6. Suicidal Behavior (Lifetime) No 04/19/2022 8:10 AM ERLINDAT Felipa Llamas RN Activ e documented as of this encounter Mental Status * Question Answer Entry Date Author Status Because of a physical, mental, or emotional condition, do you have serious difficulty concentrating, remembering, or making decisions? No 04/19/2022 5:00 PM ERLINDAT Clarke Pleitez RN Active * Because of a physical, mental, or emotional condition, do you have serious difficulty concentrating, remembering, or making decisions? Answer Entry Date Author Status No 10/18/2021 10:29 PM ERLINDAT Karin Lloyd RN A ctive documented in this encounter Plan of Treatment Upcoming Encounters Date Type Department Care Team (Late st Contact Info) Description 07/07/2025 11:00 AM TRUSS MAKER Office Visit [facility] [address] [place] [address] Stanton Valenzuela MD [address] [place], [place] [address] 07/07/2025 11:00 AM TRUSS MAKER Allied Health/Nurse Visit [facility] [address] [place] [address] Stanton Valenzuela MD [address] [place] [address] 10/12/2025 2:15 AM CDT Allied Health/Nurse Visit [facility] [address] [place] [address] Stanton Valenzuela MD [address] [place], [place] [address] 02/07/2026 11:30 AM CDT Office Visit [facility] [address] [place] [phone] Malu Woods, [facility]- [address] [facility] [address] [place] [address] documented as of this encounter Goals Goal Patient Goal Type Associated Problems Recent Progress Patient-Stated? Author Family - family caregiver with be involved in care transitions and discharge planning General No Elena Stanley, JCARLOS Safety Patient/family will have appropriate support at home upon discharge General No Elena Stanley, RN documented as of this encounter Visit Diagnoses Not on filedocumented in this encounter Care Teams Unit Control Clerk Relationship Specialty Start Date End Date Scott Dial MD [address] [place] [address] PCP - General FAMILY PRACTICE 01/14/18 Melvin Snow MD [address] [place] [address] [employer] INTERVENTIONAL CARDIOLOGY 01/14/18 05/27/23 Malu Woods, ANP-BC [address] [facility] [address] [place] [address] CARDIOVASCULAR DISEASE 01/14/18 Olinda Felton AGACNP- [address] [place] [address] CARDIOVASCULAR DISEASE 05/29/18 Niko Byrnes MD [address] [address] [employer] CLINICAL CARDIAC ELECTROPHYSIOLOGY 06/13/18 04/19/22 Jess Wiley RECREATION ATTENDANT [address] [place] [address] Nurse Practitioner Electrophysiology 06/13/18 05/27/23 Elisha Munroe MD [address] [place] [address] Surgeon NEUROLOGICAL SURGERY 11/14/21 Chu Varner MD [address] [place] [address] Consulting Physician INTERVENTIONAL CARDIOLOGY 04/16/22 08/12/24 Mina Hutchins MD [address] [place] [address] Consulting Physician INTERVENTIONAL CARDIOLOGY 04/23/22 12/06/24 Stanton Valenzuela MD [address] [place] [address] Consulting Physician CLINICAL CARDIAC ELECTROPHYSIOLOGY 05/02/22 Samreen Liu PA-C [address] [place] [address] Referring Physician PHYSICIAN COLLAR BASTER JUMPBASTING 05/28/23 Cabrera Mary MD [address] [place] [address] Consulting Physician CARDIOVASCULAR DISEASE 10/23/23 Antoinette Atkins MD [address] [phone] Internal Medicine - Infectious Disease 10/30/23 10/29/24 [place] [address] [address] Surgeon WOUND CARE 10/30/23 10/29/24 Mina Hutchins MD [address] [place] [address] Consulting Physician INTERVENTIONAL CARDIOLOGY 02/11/24 12/06/24 Zoie Parra NP [address] [place] [address] Nurse Practitioner Nurse Practitioner Family 05/26/24 12/07/24 Franklin Costa DPM [address] [place] [address] Referring Physician PODIATRY/SURGERY 06/03/24 06/03/25 Kyle Torres MD [address] [place] [address] VASCULAR SURGERY 11/12/24 11/12/25 Antoinette Atkins MD [facility] [address] [phone] Internal Medicine - Infectious Disease 11/16/24 11/16/25 documented as of this encounter
--- OUTSIDE RECORDS SUMMARY | 2025-06-30 13:50 | XMS_ITS | Encounter Summary ---
Author Organization [facility] Address [address] [place] [address] Care Team Providers Care Central Office Supervisor Name Role Phone Scott Dial MD Primary Care Provider [phone] Olinda Felton AGACNP-BC Unavailable [phone] Elisha Munroe MD Unavailable [phone] Stanton Valenzuela MD Unavailable [phone] Samreen Liu PA-C Unavailable [phone] Zoie Parra NP Unavailable [phone] Franklin Costa DPM Unavailable Kyle Torres MD Unavailable Antoinette Atkins MD Unavailable [phone] Encounter Details Date Type Department Care Team (Late st Contact Info) Description 12/07/2024 Hospital Follow-up Call [facility] Cardiovascular Care Unit [address] [place] [address] Yajaira Villa, RN Social History Tobacco Use Types Packs/Day Years Used Date Smoking Tobacco: Former Pipe Q uit: 1970 Smokeless Tobacco: Never Alcohol Use Standard Drinks/Week Comments No 0 (1 standard drink = 0.6 oz pur e alcohol) [facility] Utilities Answer Date Recorded In the [...] any time in the past 12 m [facility], were you homeless or living in a retirement (including now)? No 12/04/2024 Sex and Gender [...] st Contact Info) Description 07/07/2025 11:00 AM DENTAL ASSISTANT [facility] Visit [facility] [place] [address] Stanton Valenzuela MD [address] [place] [address] 07/07/2025 11:00 AM DENTAL ASSISTANT Allied Health/Nurse [facility] [place] [address] Stanton Valenzuela MD [address] [place], [place] [address] 10/12/2025 2:15 AM CDT [facility] [address] [place] [address] Stanton Valenzuela MD [address] [place], [place] [address] 02/07/2026 11:30 AM CDT Office Visit [facility] [place] [address] Malu Woods ANP-BC [address] [facility] [address] [place] [address] documented as of this encounter Goals Goal Patient Goal Type Associated Problems Recent Progress Patient-Stated? Author Family - family caregiver with be involved in care transitions and discharge planning General No Elena Stanley, JCARLOS Safety Patient/family will have appropriate support at home upon discharge General No Elena Stanley, commercial stripper - family caregiver with be involved in care transitions and discharge planning Lifestyle No Dara Hair RN documented as of this encounter Visit Diagnoses Not on filedocumented in this encounter Care Teams Central Office Supervisor Relationship Specialty Start Date End Date Scott Dial MD [address] [place] [address] PCP - General FAMILY PRACTICE 01/14/18 Olinda Felton AGACNP- [address] [place] [address] [place] [address] CARDIOVASCULAR DISEASE 05/29/18 Elisha Munroe MD [address] [place] [address] Surgeon NEUROLOGICAL SURGERY 11/14/21 Stanton Valenzuela MD [address] [place] [address] Consulting Physician CLINICAL CARDIAC ELECTROPHYSIOLOGY 05/02/22 Samreen Liu PA-C [address] [place] [address] Referring Physician PHYSICIAN NUCLEAR FUELS RECLAMATION ENGINEER 05/28/23 Zoie Parra NP [address] [place] [address] [address] Nurse Practitioner Nurse Practitioner Family 05/26/24 12/07/24 Franklin Costa DPM [address] [place] [address] Referring Physician PODIATRY/SURGERY 06/03/24 06/03/25 Kyle Torres MD [address] [place] [phone] VASCULAR SURGERY 11/12/24 11/12/25 Antoinette Atkins MD [address] [place] [phone] Internal Medicine - Infectious Disease 11/16/24 11/16/25 documented as of this encounter
--- OUTSIDE RECORDS SUMMARY | 2025-06-30 13:50 | XMS_ITS | Encounter Summary ---
Author Organization [facility] Address [address] [place] [address] Care Team Providers Care Stock Shipper Name Role Phone Scott Dial MD Primary Care Provider [phone] Gwendolyn Mcguire MD, Robert Unavailable [phone] Malu Woods ANP-BC Unavailable + [phone] Romel Santamaria MD Unavailable Unavailable Olinda Felton AGACNP-BC Unavailable [phone] Niko Byrnes MD Unavailable UnavailJess Salcedo NP Unavailable Unavailable Elisha Munroe MD Unavailable [phone] Chu Varner MD Unavailable [phone] Mina Hutchins MD Unavailable [phone] Stanton Valenzuela MD Unavailable +[phone] Samreen Liu PA-C Unavailable +[phone] Cabrera Mary MD Unavailable Antoinette Atkins MD Unavailable [phone] Jesus Abreu MD Unavailable iMna Hutchins MD Unavailable +[phone] Zoie Parra NP Unavailable [phone] JulissaRegic DPM Unavailable Kyle Torres MD Unavailable Antoinette Atkins MD Unavailable [phone] Encounter Details Date Type Department Care Team (Late st Contact Info) Description 02/16/2022 Abstract [facility] [address] [place] [address] Malu Woods, ANP-BC [address] [facility] [address] [place] [address] Social History Tobacco Use Types [...] suspected to have Coronavirus/COVID-19? No / Unsure 02/13/2022 8:37 AM CDT documented as of this encounter [...] Status Yes 10/18/2021 10:29 PM CDT Karin Lloyd, RN A ctive * Do you have difficulty dressing or bathing? Answer Date of Assessment Author Status No 10/18/2021 10:29 PM CDT Karin Lloyd RN A ctive * Because of a physical, mental, or emotional condition, do you have difficulty doing errands alone such as visiting a doctor's office or shopping? Answer Date of Assessment Author Status No 10/18/2021 10:29 PM ERLINDAT Karin Lloyd RN A ctive documented as of this encounter Mental Status * Because of a physical, mental, or emotional condition, do you have serious difficulty concentrating, remembering, or making decisions? Answer Entry Date Author Status No 10/18/2021 10:29 PM ERLINDAT Karin Lloyd RN A ctive documented in this encounter Plan of Treatment Upcoming Encounters Date Type Department Care Team (Late st Contact Info) Description 07/07/2025 11:00 AM HORTICULTURE INSTRUCTOR Office Visit [facility] [address] [place] [address] Stanton Valenzuela MD [address] [place] [address] 07/07/2025 11:00 AM HORTICULTURE INSTRUCTOR Allied Health/Nurse Visit [facility] [address] [place] [address] [phone] Stanton Valenzuela MD [address] [place], [place] [address] 10/12/2025 2:15 AM CDT Allied Health/Nurse Visit [facility] [address] [place] [phone] Stanton Valenzuela MD [address] [place] [address] 02/07/2026 11:30 AM CDT Office Visit [facility] [address] [place] [address] Malu Woods, ANP-BC [address] [facility] [address] [place] [address] documented as of this encounter Goals Goal Patient Goal Type Associated Problems Recent Progress Patient-Stated? Author Family - family caregiver with be involved in care transitions and discharge planning Elena Bowers, RN Safety Patient/family will have appropriate support at home upon discharge General No Elena Stanley, RN documented as of this encounter Procedures Procedure Name Priority Date/Time Associated Diagnosis Comments CBC W/AUTO DIFF Routine 01/24/2022 BASIC METABOLIC PANEL Routine 01/24/2022 documented in this encounter Results * BASIC METABOLIC PANEL (01/24/2022) SODIUM S/P/B 135 137 - 145 POTASSIUM S/P/B 4.3 3.4 - 5.0 CO2 28 22 - 30 CHLORIDE S/P/B 99 98 - 107 GLUCOSE 77 65 - 110 CALCIUM S/P/B 7.9 8.4 - 10.2 BUN 22 8 - 16 CREATININE S/P/B 1.30 0.7 - 1.3 EGFR NON-AFR. AMER. 53 <=90 01/24/2022 us Doc [facility] LABORATORY Final Result * CBC W/AUTO DIFF (01/24/2022) WBC 4.2 4.5 - 10.0 RBC 3.57 4.6 - 6.20 HGB 10.9 14.0 - 18.0 HCT 32.5 42.0 - 52.0 MCV 91.0 80 - 100 MCH 30.5 26 - 34 MCHC 33.5 32 - 36 RDW 17.2 11.5 - 14.5 PLATELET COUNT 142 150 - 375 MPV 9.7 7.4 - 10.4 01/24/2022 us Doc [facility] LABORATORY Final Result documented in this encounter Visit Diagnoses Not on filedocumented in this encounter Care Teams Stock Shipper Relationship Specialty Start Date End Date Scott Dial MD [address] [place] [phone] PCP - General FAMILY PRACTICE 01/14/18 Melvin Snow MD [address] [place] [address] Spreckels Airplane Cabin Attendant INTERVENTIONAL CARDIOLOGY 01/14/18 05/27/23 Malu Woods, [facility]- [address] [phone] CARDIOVASCULAR DISEASE 01/14/18 Romel Santamaria MD [address] [address] CARDIOTHORACIC SURGERY 04/10/18 04/15/[address] [facility] [address] [address] CARDIOVASCULAR DISEASE 05/29/18 Niko Byrnes MD [address] [address] EP Airplane Cabin Attendant CLINICAL CARDIAC ELECTROPHYSIOLOGY 06/13/18 04/19/22 Jess Wiley NP [address] [address] Nurse Practitioner Electrophysiology 06/13/18 05/27/23 Elisha Munroe MD [address] [place] [address] [phone] Surgeon NEUROLOGICAL SURGERY 11/14/21 Chu aVrner MD [address] [place] [address] 308382 Consulting Physician INTERVENTIONAL CARDIOLOGY 04/16/22 08/12/24 Mina Hutchins MD [address] [place] [address] Consulting Physician INTERVENTIONAL CARDIOLOGY 04/23/22 12/06/24 Stanton Valenzuela MD [address] [place] [address] 110161 Consulting Physician CLINICAL CARDIAC ELECTROPHYSIOLOGY 05/02/22 Samreen Liu PA-C [address] [place] [address] 586311 Referring Physician PHYSICIAN COMMAND AND CONTROL OFFICER 05/28/23 Cabrera Mary MD [address] [place] [address] [place], [place] [phone] Consulting Physician CARDIOVASCULAR DISEASE 10/23/23 Antoinette Atkins MD [address] [address] Internal Medicine - Infectious Disease 10/30/23 10/29/24 [place] [address] [address] [place] [address] Surgeon WOUND CARE 10/30/23 10/29/24 Mina Hutchins MD [address] [place] [address] Consulting Physician INTERVENTIONAL CARDIOLOGY 02/11/24 12/06/24 Zoie Parra NP [address] [place] [address] [phone] Nurse Practitioner Nurse Practitioner Family 05/26/24 12/07/24 Franklin Costa DPM [address] [address] Referring Physician PODIATRY/SURGERY 06/03/24 06/03/25 Kyle Torres MD [address] [place] [address] VASCULAR SURGERY 11/12/24 11/12/25 Antoinette Atkins MD [facility] [address] [phone] Internal Medicine - Infectious Disease 11/16/24 11/16/25 documented as of this encounter
--- OUTSIDE RECORDS SUMMARY | 2025-06-30 13:50 | XMS_ITS | Clinical Summary ---
Author Organization [employer] [id number] Address [address] [place] [address] Care Team Providers Care Commonwealth Attorney Name Role Phone Unavailable Primary Care Provider Unavailabl e Allergies Active Allergy Reactions Criticality Noted Date Comments Penicillins Unknown 08/15/2020 Medications albuterol sulfate HFA 90 mcg/actuation aerosol inhaler 3 Active amiodarone (CORDARONE) 200 mg tablet Take 200 mg by mouth daily. 3 Active ascorbic acid, vitamin C, (VITAMIN C) 100 mg Tablet Take 100 mg by mouth daily. Active atorvastatin (LIPITOR) 40 mg tablet Take 40 mg by mouth daily at bedtime. 3 Active cholecalciferol , Vitamin D3, 50 mcg (2,000 unit) Tablet Take 2,000 Units by mouth daily. Active diclofenac sodium (VOLTAREN) 1 % gel Apply to affected area. Active famotidine (PEPCID) 20 mg tablet Take 1 Tablet by mouth 2 times daily. 4 Active ferrous sulfate 325 mg (65 mg iron) tablet Take 325 mg by mouth daily. Active finasteride (PROSCAR) 5 mg tablet Take 1 Tablet by mouth daily. 3 Active furosemide (LASIX) 20 mg tablet TAKE 60MG PER DAY, THEN AN ADDITIONAL 40MG DAILY IF NEEDED FOR INCREASED SWELLING. 3 Active furosemide (LASIX) 40 mg tablet PLEASE SEE ATTACHED FOR DETAILED DIRECTIONS Active levoFLOXacin (LEVAQUIN) 750 mg tablet Take 1 Tablet by mouth daily. 3 Active levothyroxine 50 mcg tablet Take 50 mcg by mouth daily. Active metoprolol succinate (TOPROL XL) 25 mg Extended Release 24 hour tablet Take 12.5 mg by mouth daily. Active montelukast (SINGULAIR) 10 mg tablet Take 10 mg by mouth daily at bedtime. 3 Active pantoprazole (PROTONIX) 40 mg Tablet, Delayed Release (E.C.) Take 40 mg by mouth daily. Active spironolactone (ALDACTONE) 25 mg tablet Take 12.5 mg by mouth daily. Active tamsulosin (FLOMAX) 0.4 mg capsule take 2 capsules by mouth every day at bedtime Active terbinafine HCL (LamISIL) 250 mg tablet Take 250 mg by mouth daily. Active aspirin (ECOTRIN EC) 81 mg Tablet, Delayed Release (E.C.) Take 1 Tablet (81 mg) by mouth daily. 4 Active Sodium Chloride 1,000 mg Tablet, Soluble Take 1,000 mg by mouth every Saturday and . Active multivit,pablo,mn /folic/D3/lycop (ONE A DAY MEN COMPLETE ORAL) Take 1 Tablet by mouth daily. Active fluticasone propionate (FLONASE) 50 mcg/spray [place], Suspension nasal inhaler Administer 2 Sprays in each nostril daily. Active Active Problems Patient Care Coordination No te Formatting of this note migh t be different from the original. Vascular Care - Dr. Michael Santamaria MD, [facility], [facility] Heart and Vascular - [address] [facility] [address] Bolaños DPAlpa - [facility] Stanton Valenzuela MD - Landscape Gardener [facility] [place] [address] Problem Noted Date Diagnosed Date Coronary artery disease invo lving [place] coronary artery of [place] heart without angina pectoris 08/21/2023 S/P CABG (coronary artery bypass graft) 08/21/19 PAD (peripheral artery disease) 08/21/2023 Social History Tobacco Use Types Packs/Day Years Used Date Smoking Tobacco: Former Cigarettes 0 Q uit: 1948 Smokeless Tobacco: Never Tobacco Cessation:Counseling Given: Not Answered Alcohol Use Standard Drinks/Week Comments Never 0 (1 standard drink = 0.6 oz pur e alcohol) Feeling Safe Answer Date Recorded Are you in a relationship wi th someone who hurts you emotionally and/or physically? 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 Gender Identity Not on file Sexual Orientation Not on file Last Filed Vital Signs Vital Sign Reading Time Taken Comments Blood Pressure 130/60 09/26/2023 8:23 AM ORTHOPAEDIC PHYSICIAN ASSISTANT Pulse 74 09/26/2023 8:23 AM ORTHOPAEDIC PHYSICIAN ASSISTANT Temperature - - Respiratory Rate 18 08/27/2023 10:30 AM ORTHOPAEDIC PHYSICIAN ASSISTANT Oxygen Saturation 94% 08/27/2023 9:45 AM ORTHOPAEDIC PHYSICIAN ASSISTANT Inhaled Oxygen Concentration - - Weight 98.4 kg (217 lb) 09/26/2023 8:23 AM ORTHOPAEDIC PHYSICIAN ASSISTANT Height 177.8 cm (5' 10) 09/26/2023 8:23 AM ORTHOPAEDIC PHYSICIAN ASSISTANT Body Mass Index 31.14 09/26/2023 8:23 AM ORTHOPAEDIC PHYSICIAN ASSISTANT Plan of Treatment Health Maintenance Due Date Last Done Comments DIABETES ANNUAL FOOT EXAM 1955 DIABETES ANNUAL RETINAL EXAM 1955 DIABETES MICROALBUMIN ANNUAL SCREEN 1955 LDL CHOLESTEROL ANNUAL 1955 DTAP/TDAP/TD VACCINES (1 - Tdap) 1956 ZOSTER VACCINE (1 of 2) 1987 RSV VACCINE (60+ or ) (1 - 1-dose 75+ series) 2012 DIABETES HBA1C Q 6 MONTHS 04/21/2022 10/19/2021, 01/2018 INFLUENZA VACCINE (#1) 2025 PNEUMOCOCCAL VACCINE 50+ YEARS Completed 04/12/2018 , 01/24/2018 Medical Devices Implanted Type Area Enterprise Account Manager Device Identifier Shelf Expiration Date Model / Serial / Lot Dev Celt Acd Vasc Closure 6fr [facility]-06 - [id number] Implanted:Qty: 1 on 08/27/2023 at [facility] Closure Device Groin VASORUM 05/20/2026 [facility]-06 / / [id number] Insurance MEDICARE PART A AND B BCBS SUPP Advance Directives For more information, please contact: [phone] Documents on File Type Date Recorded Patient Metrology Manager Expl anation Advance Directive POA 08/21/2023 8:36 AM A dvance Directive POA Care Teams Commonwealth Attorney Relationship Specialty Start Date End Date Stanton Valenzuela MD [facility] [address] Consulting Physician Cardiovascular Disease 08/19/23
--- OUTSIDE RECORDS SUMMARY | 2025-06-30 13:50 | XMS_ITS | Encounter Summary ---
Author Organization [facility] Address [address] [place] [address] Care Team Providers Care Hadoop Application Developer Name Role Phone Scott Dial MD Primary Care Provider [phone] Gwendolyn Mcguire MD, Robert Unavailable [phone] Malu Woods ANP-BC Unavailable + [phone] Romel Santamaria MD Unavailable Unavailable Olinda Felton AGACNP-BC Unavailable [phone] Niko Byrnes MD Unavailable UnavailJess Salcedo NP Unavailable Unavailable Elisha Munroe MD Unavailable [phone] Chu Varner MD Unavailable [phone] Mina Hutchins MD Unavailable [phone] Stanton Valenzuela MD Unavailable [phone] Samreen Liu PA-C Unavailable [phone] Cabrera Mary MD Unavailable Antoinette Atkins MD Unavailable [phone] Jesus Abreu MD Unavailable Mina Hutchins MD Unavailable [phone] Zoie Parra NP Unavailable [phone] [place], [place] DPM Unavailable Kyle Torres MD Unavailable Antoinette Atkins MD Unavailable [phone] Encounter Details Date Type Department Care Team (Late st Contact Info) Description 01/19/2019 Abstract [facility] [address] [place] [phone] Niko Byrnse MD Social History Tobacco Use Types Packs/Day [...] st Contact Info) Description 07/07/2025 11:00 AM 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 [address] 02/07/2026 11:30 AM CDT Office Visit [facility] [address] [place] [address] Malu Woods ANP-BC [address] [address] documented as of this encounter Visit Diagnoses Not on filedocumented in this encounter Additional Health Concerns Infection Onset Date Last Indicated Resolved Time COVID-19 Rule Out 10/08/2020 10/08/2020 10/09/2020 2:52 PM CDT COVID-19 Rule Out 03/24/2021 03/24/2021 03/24/2021 8:11 PM CDT COVID-19 Rule Out 04/14/2021 04/14/2021 04/14/2021 8:33 PM CDT COVID-19 Rule Out 10/18/2021 10/19/2021 10/19/2021 2:23 PM CDT documented as of this encounter Care Teams Hadoop Application Developer Relationship Specialty Start Date End Date Scott Dial MD [address] [place] [address] PCP - General FAMILY PRACTICE 01/14/18 Melvin Snow MD [address] [place] [address] Willard Pad Machine Feeder INTERVENTIONAL CARDIOLOGY 01/14/18 05/27/23 Malu Woods, ANP-BC [address] [address] CARDIOVASCULAR DISEASE 01/14/18 Romel Santamaria MD [facility] [address] [place] [address] CARDIOTHORACIC SURGERY 04/10/18 04/15/22 Olinda Felton AGACNP-BC [address] [place] [address] CARDIOVASCULAR DISEASE 05/29/18 Niko Byrnes MD [address] [place] [address] EP Pad Machine Feeder CLINICAL CARDIAC ELECTROPHYSIOLOGY 06/13/18 04/19/22 Jess Wiley NP [address] [place] [address] Nurse Practitioner Electrophysiology 06/13/18 05/27/23 Elisha Munroe MD [address] [place] [address] Surgeon NEUROLOGICAL SURGERY 11/14/21 Chu Varner MD [address] [place] [address] Consulting Physician INTERVENTIONAL CARDIOLOGY 04/16/22 08/12/24 Mina Hutchins MD [address] [place] [address] Consulting Physician INTERVENTIONAL CARDIOLOGY 04/23/22 12/06/24 Stanton Valenzuela MD [address] [place] [address] Consulting Physician CLINICAL CARDIAC ELECTROPHYSIOLOGY 05/02/22 Samreen Liu PA-C [address] [place] [address] Referring Physician PHYSICIAN CLIENT CARE REPRESENTATIVE 05/28/23 Cabrera Mary MD [address] [place] [address] [place] [address] Consulting Physician CARDIOVASCULAR DISEASE 10/23/23 Antoinette Atkins MD [address] [place] [phone] Internal Medicine - Infectious Disease 10/30/23 10/29/24 [place] [address] [phone] Surgeon WOUND CARE 10/30/23 10/29/24 Mina Hutchins MD [address] [place] [address] Consulting Physician INTERVENTIONAL CARDIOLOGY 02/11/24 12/06/24 oZie Parra NP [address] [place] [address] [phone] Nurse Practitioner Nurse Practitioner Family 05/26/24 12/07/24 Franklin Costa DPM [address] [place] [address] Referring Physician PODIATRY/SURGERY 06/03/24 06/03/25 Kyle Torres MD [facility] [address] [address] VASCULAR SURGERY 11/12/24 11/12/25 Antoinette Atkins MD [address] [phone] Internal Medicine - Infectious Disease 11/16/24 11/16/25 documented as of this encounter
--- OUTSIDE RECORDS SUMMARY | 2025-06-30 13:50 | XMS_ITS | Clinical Summary ---
Author Organization [facility] [place] [address] Address [address] [place] [address] Care Team Providers Care Clothing Patternmaker Name Role Phone Scott Dial MD Primary Care Provider [phone] Allergies No known active allergies Medications aspirin 81 mg capsule Take 1 tablet every day by oral route. Active amiodarone (PACERONE) 200 mg tablet Take 1 tablet (200 mg total) by mouth daily 3 Active atorvastatin (LIPITOR) 40 mg tablet Take 1 tablet every day by oral route. 3 Active tamsulosin (FLOMAX) 0.4 mg extended release capsule Take 2 capsules every day by oral route. 2 Active spironolactone (ALDACTONE) 25 mg tablet Take 1 tablet every day by oral route. [address] (PROTONIX) 40 mg EC tablet Take 1 tablet (40 mg total) by mouth daily 1 Active montelukast (SINGULAIR) 10 mg tablet Take 1 tablet every day by oral route. 8 Active metoprolol XL (TOPROL-XL) 25 mg extended release tablet Take 0.5 tablets every day by oral route. 3 Active levothyroxine (SYNTHROID) 75 mcg tablet Take 1 tablet every day by oral route. 5 Active hydrOXYzine (ATARAX) 25 mg tablet Take 1 tablet (25 mg total) by mouth 2 (two) times a day 4 Active furosemide (LASIX) 40 mg tablet Take 1 tablet (40 mg total) by mouth 2 (two) times a day 5 Active fluticasone propionate (FLONASE) 50 mcg/actuation nasal spray Administer 2 sprays into affected nostril(s) daily 8 Active finasteride (PROSCAR) 5 mg tablet Take 1 tablet (5 mg total) by mouth daily 3 Active ferrous sulfate 325 mg (65 mg of elemental iron) tablet Take 1 tablet (325 mg total) by mouth daily Active famotidine (PEPCID) 20 mg tablet Take 1 tablet (20 mg total) by mouth 2 (two) times a day 0 Active docusate sodium (Colace) 100 mg capsule Take 1 capsule twice a day by oral route. 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 Note: may not be a good candidate for Inspire device given that he has dentures (per Pulmonology ). Paroxysmal atrial fibrillation 11/27/2024 Overview (11/27/2024): & Flutter. A.fib dx on Holter . Tx Amiodarone (per Cardiology) & Metoprolol added (inpt admit for RVR). Amiodarone increased per Cardiology for new a.flutter w/ RVR. Hx anticoag until d/c'd after subdural bleed spring and then mitral clipping done to mitigate risk of being OFF anti-coag (atrial appendage remnant too shallow for Watchman). - Ablation done (concurrent w/ CABG). - prior hx Digoxin tx as well. Recurrent falls 11/27/2024 Overview (11/27/2024): in advanced age. Multifactorial (balance, etc). Advised move from cane to walker when outside home . Essential hypertension 11/27/2024 Overview (11/27/2024): Goal < 140/90 per JNC8 for concurrent DM-II. Hx control w/ lisinopril (until med stopped fall during w/u chronic cough). Note also on Metoprolol primarily for A.fib / Flutter rate control (dose halved 06/27/22 for recent fall, lower end BP, and weakness). Spironolactone added by cardiology (primarily for CHF). Assessment & Plan (04/14/2025 10:29 AM CDT): Stable continue Lasix Assessment & Plan (01/08/2025 10:58 AM CDT): Stable continue metoprolol Assessment & Plan (12/22/2024 10:21 AM CDT): Stable continue metoprolol Assessment & Plan (12/04/2024 10:33 AM CDT): Stable continue metoprolol Diabetic peripheral neuropathy 11/27/2024 Congestive heart failure 11/27/2024 Overview (11/27/2024): Card's reduced pacer rate in hopes of improving diastolic sx's. Spironolactone added by cardiology after wide pulse pressure / low diastolic (and increased 06/18/24 for some increased effusion). - hx EF 45-50% on echo Spring 2020. Stage 3 chronic kidney disease 11/27/2024 Overview (11/27/2024): baseline creatinine 1.1-1.8 attrib to HTN / History of Diabetes. Stable 1.5 on . Type 2 diabetes mellitus 06/10/2024 Acute osteomyelitis of phalanx of foot Overview (11/27/2024): Osteomyelitis of bilateral great toes spring, MSSA on initial culture (also with GNR that did not grow out). Followed by Infectious Disease. Ulcer of lower extremity with fat layer exposed 11/12/2023 Assessment & Plan (11/27/2024 10:29 AM CDT): Currently being treated by wound to bilateral 1st toe ulcerations with underlying osteomyelitis to the left 1st toe. Currently waiting to get seen again by Infectious Disease. This will be his 2nd or 3rd round IV antibiotics. Was previously treated for osteomyelitis with a PICC line. Continue current treatment. Ulcer of right foot due to type 2 diabetes akin reich 10/09/2023 Overview (11/27/2024): Hammar Toe dx on Podiatry eval of (dorsal) toe ulcerations early . Not surgical candidate per vascular d/t severe PAD. following with wound team at [facility] (see also Osteomyelitis of toes). PAD (peripheral artery disease) 08/21/2023 Overview (11/27/2024): f/b [facility] Dr. Mary. 08/27/23 angiogram: diffuse small terminal vessel disease (no further interventions planned). Dr. Hutchins found patent vessels on left leg dx angiography. Assessment & Plan (04/14/2025 10:28 AM CDT): Status post diagnostic bilateral lower extremity angiogram, shows no evidence of large vessel disease confirms inframalleolar disease bilaterally. Has chronic osteomyelitis to bilateral hallux. Right hallux wound on healed clinically. Left hallux wound is stable. Continue local wound care, seen Dr. Kumar on Saturday. Given his advanced age would not recommend amputation at this time unless clinically needed. Repeat evaluation in 3-6 months. Assessment & Plan (01/08/2025 10:58 AM CDT): Status post diagnostic bilateral lower extremity angiogram, shows no evidence of large vessel disease confirms inframalleolar disease bilaterally. Has chronic osteomyelitis to bilateral hallux. Findings discussed with the patient and his family, we discussed management including continuing antibiotics and local wound care versus 1st toe amputation and/or proximal amputation. Overall his wounds clinically are stable, no signs of worsening infection. Given his age and comorbidities I have recommended continuing local wound care and antibiotics, we did discuss ultimately if his wounds worsened in severity he would need either a toe amputation or [id number] amputation. We will plan for repeat evaluation in 3 months Assessment & Plan (12/22/2024 10:21 AM CDT): Bilateral lower extremity PVD, likely predominantly inframalleolar disease and small-vessel disease. However has had progression of the wound of the right lower extremity. Given this I have recommended a angiogram with possible intervention, risks benefits alternatives discussed. Risks including bleeding, infection, perforation, contrast induced nephropathy, dissection, thrombosis, distal embolization and need for further surgery he wished proceed. Assessment & Plan (12/02/2024 10:26 AM CDT): Bilateral hallux wounds with osteomyelitis previously treated with IV and oral antibiotics, based on his Doppler likely has digit disease, he did have an angiogram last year up in [facility] which showed digit disease, despite wound care his wounds have not healed. I will request the imaging of his angiogram to further evaluate, I had a long discussion with the patient and his daughter ultimately he may require another angiogram to see if there was any large vessel disease otherwise would need continued local wound care antibiotics versus amputation. We will follow up in the office in 1-2 weeks Assessment & Plan (11/27/2024 10:30 AM CDT): No symptoms of claudication or rest pain. Positive pedal pulses to the right lower extremity no palpable pulses to the left. Recent lower extremity Dopplers from outside hospital suggest falsely elevated ABIs. We will have the patient follow- up with a lower extremity arterial Doppler to assess blood flow in follow-up in the next 1-2 weeks. Patient will likely need an angiogram of left lower extremity for the wound to the left 1st toe. 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 Coronary artery disease invo lving coronary bypass graft of [place] heart without angina pectoris 04/09/2018 Hyperlipidemia 12/09/2015 Overview (11/27/2024): Tx Atorvastatin (contin'd in advncd age while tolerated). Note, 6wk hold on statin for IV Daptomycin tx summer thru 04/29/24 (per I.D.) - LDL 67 on (nmL LFT's). Assessment & Plan (04/14/2025 10:29 AM CDT): Stable continue Lipitor Assessment & Plan (01/08/2025 10:58 AM CDT): Stable continue Lipitor Assessment & Plan (12/22/2024 10:21 AM CDT): Stable continue Lipitor Assessment & Plan (12/04/2024 10:33 AM CDT): Stable continue Lipitor Encounters Date Type Department Care Team Description 06/18/2025 10:30 AM DESIGN SALES CONSULTANT Orders Only [facility] Medical Office Building 2 Wound Care [address] [place] [address] 06/04/2025 10:30 AM DESIGN SALES CONSULTANT Orders Only [facility] Office Building 2 Wound Care [address] [place] [address] 05/28/2025 10:30 AM CDT Orders Only [facility] Office Building 2 Wound Care [address] [place] [address] 05/28/2025 Orders Only [facility] Surgeon [address] [place] [id number] Maty Kumar, DPM Ulcer of toe, left, with fat layer exposed (HCC) 05/14/2025 10:30 AM CDT Orders Only [facility] Office Building 2 Wound Care [address] [place] [address] 05/14/2025 Orders Only [facility] Surgeon [address] [place] [phone] Maty Kumar, DPM Ulcer of toe, left, with fat layer exposed (HCC) (Primary Dx) 05/07/2025 10:30 AM CDT Orders Only [facility] Medical Office Building 2 Wound Care [address] [place] [address] 04/30/2025 10:30 AM CDT Orders Only [facility] Office Building 2 Wound Care [address] [place] [address] 04/23/2025 10:30 AM CDT Orders Only [facility] Office Building 2 Wound Care [address] [place] [address] 04/23/2025 Orders Only [facility] Surgeon [address] [place] [id number] Maty Kumar, DPM Ulcer of great toe, left, with fat layer exposed (HCC) (Primary Dx) 04/16/2025 12:46 PM CDT - 04/16/2025 11:59 PM CDT Hospital Encounter [facility] Lab [address] [place] [address], [place] [address] Discharge Disposition: Discharge to home or self care 04/16/2025 12:08 PM CDT - 04/16/2025 11:59 PM CDT Hospital Encounter [facility] Diagnostic Imaging [address] [place] [address] 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); Chronic osteomyelitis of toe of right foot (HCC) Discharge Disposition: Discharge to home or self care 04/16/2025 10:30 AM CDT Orders Only [facility] Medical Office Building 2 Wound Care [address] [place] [address] 04/16/2025 Orders Only [facility] Surgeon [facility] [place] [address] Maty Kumar DPM 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) (Primary Dx); Chronic osteomyelitis of toe of right foot (HCC) 04/14/2025 9:45 AM CDT Office Visit [facility] at [address] [place] [address] Kyle Torres MD PAD (peripheral artery disease) (Primary Dx); Essential hypertension; Mixed hyperlipidemia from Last 3 Months Surgical History Surgery Date Site/Laterality Comments US GUIDED THORACENTESIS 01/13/2021 N/A CORONARY ARTERY BYPASS GRAFT INSERT / REPLACE / REMOVE PACEMAKER CARDIAC CATHETERIZATION 12/31/2024 Right Procedure: RIGHT LOWER EXTREMITY ANGIOGRAM WITH POSSIBLE INTERVENTION; Surgeon: Kyle Torres MD; Location: [facility] CARDIAC LEHR OPERATOR; Service: Vascular; Laterality: Right; WITH CO2 & 1/2 & 1/2 CONTRAST Medical devices from this surgery are in the Medical Devices section. Medical History Medical History Date Comments Hypertension Thyroid disease Coronary artery disease Social History Tobacco Use Types Packs/Day Years Used Date Smoking Tobacco: Former Cigarettes Passive Smoke Exposure: Past Smokeless Tobacco: Never Tobacco Cessation:Counseling Given: Not Answered AUDIT-C Answer Date Recorded Q1: How often do you have a drink containing alcohol? Never 12/31/2024 Q2: How many drinks containi ng alcohol do you have on a typical day when you are drinking? Patient does not drink Q3: How often do you have si x or more drinks on one occasion? Never 12/31/2024 Personal Safety Answer Date Recorded Have you ever been in or are you currently in a harmful physical or emotional relationship or is someone making you feel afraid or unsafe? Denies 12/31/2024 Sex and Gender Information Value Date Recorded Sex Assigned at Not on file Legal Sex Male 8:15 AM CDT Gender Identity Not on file Sexual Orientation Not on file Last Filed Vital Signs Vital Sign Reading Time Taken Comments Blood Pressure 101/59 04/14/2025 9:55 AM CDT Pulse 94 04/14/2025 9:55 AM CDT Temperature 36.4 C (97.5 F) 12/31/2024 9:50 AM CDT Respiratory Rate 18 12/31/2024 11:00 AM CDT Oxygen Saturation 97% 04/14/2025 9:55 AM CDT Inhaled Oxygen Concentration - - Weight 90.7 kg (200 lb) 04/14/2025 9:55 AM CDT Height 177.8 cm (5' 10) 04/14/2025 9:55 AM CDT Body Mass Index 28.7 04/14/2025 9:55 AM CDT Plan of Treatment Health Maintenance Due Date Last Done Comments Albumin Creatinine Ratio, Urine 1937 Depression Screening 1937 Fall Risk Assessment 1937 Hemoglobin A1C 1937 Dilated Eye Exam 1937 Foot Exam 1937 DTaP/Tdap/Td Vaccine (1 - Tdap) 1948 Hepatitis B Screening 1955 Zoster Vaccine (1 of 2) 1987 Well Visit 65+ 2002 Lipid Panel 07/24/2024 07/24/2023 Covid-19 Vaccine (2 - 2024-2 6 season) 2025 01/26/2021 Influenza Vaccine (#1) 2025 , 05/23/2022, 06/21/2020, Additional history exists eGFR 12/31/2025 12/31/2024 Pneumococcal vaccine 65+ Completed 019, 04/12/2018, 01/24/2018 Medical Devices Implanted Type Area Dietetic Technician Registered Device Identifier Shelf Expiration Date Model / Serial / Lot [employer] System Closure Repair Femoral Artery Suture Mediated Perclose Prostyle 21519-20 - [id number] - [id number] Implanted:Qty: 1 on 12/31/2024 by Kyle Torres MD at [facility] Other - see comments Left: Common Femoral Artery [employer] 10/26/2026 52110-13 / [id number] / [id number] Description:suture Procedures Procedure Name Priority Date/Time Associated Diagnosis Comments XR FOOT RIGHT WEIGHT-BEARING 3 OR MORE VIEWS Schedule Routine, Read Routine (OP Routine) 04/16/2025 2:23 PM CDT Chronic osteomyelitis of toe of right foot (HCC) XR FOOT LEFT WEIGHT-BEARING 3 OR MORE VIEWS Schedule Routine, Read Routine (OP Routine) 04/16/2025 2:23 PM CDT 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) AEROBIC AND ANAEROBIC CULTURE AND GRAM STAIN Routine 04/16/2025 11:25 AM CDT EGFR Routine 12/31/2024 6:54 AM CDT Atherosclerosis of [place] artery of right lower extremity with intermittent claudication from Last 3 Months or Most Recently Relevant to Health Maintenance Results * XR Foot Right Weight-Bearing 3 or More Views (04/16/2025 2:23 PM CDT) Anatomical Region Laterality Modality Lower Extremities, Foot Right Computed Radiography 04/18/2025 9:33 AM CDT Narrative 04/18/2025 9:35 AM CDT EXAM DESCRIPTION: 1. XR FOOT LEFT WEIGHT-BEARING 3 OR MORE VIEWS; 2. XR FOOT RIGHT WEIGHT-BEARING 3 OR MORE VIEWS REASON FOR STUDY: chronic toe osteomyelitis Pt states bilateral toe pain. Unknown how long. No known injury, no surgery. . FINDINGS: Three views each foot submitted without comparison. Right foot: Soft tissue wound involving the great toe is present. No focal cortical destruction. No acute fracture. 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 Hammertoe deformities are present. Large heel spur. Arterial atherosclerosis noted. Left foot: No acute fracture. Small heel spur. Mild pes cavus with mild midfoot osteoarthritis. Mild 1st metatarsophalangeal joint osteoarthritis. Great toe soft tissue wound is present. No focal cortical destruction. Hammertoe deformities are present. IMPRESSION: 1. Bilateral great toe soft tissue wounds. No focal cortical destruction identified. If persistent clinical concern for osteomyelitis, this can be further evaluated with MRI. THIS IS AN ELECTRONICALLY VERIFIED FINAL REPORT 04/18/2025 9:35 AM - Electronically signed by Misha Buenrostro M.D. T: Report ID: [id number] Reading Location: [id number] Procedure Note Misha Buenrostro MD - 04/18/2025 EXAM DESCRIPTION: 1. XR FOOT LEFT WEIGHT-BEARING 3 OR MORE VIEWS; 2. XR FOOT RIGHT WEIGHT-BEARING 3 OR MORE VIEWS REASON FOR STUDY: chronic toe osteomyelitis Pt states bilateral toe pain. Unknown how long. No known injury, nosurgery. . FINDINGS: Three views each foot submitted without comparison. Right foot: Soft tissue wound involving the great toe is present. No focal cortical destruction. No acute fracture. 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 Hammertoe deformities arepresent. Large heel spur. Arterial atherosclerosis noted. Left foot: No acute fracture. Small heel spur. Mild pes cavus with mild midfoot osteoarthritis. Mild 1st metatarsophalangeal joint osteoarthritis. Greattoe soft tissue wound is present. No focal cortical destruction. Hammertoe deformities are present. IMPRESSION: 1. Bilateral great toe soft tissue wounds. No focal corticaldestruction identified. If persistent clinical concern for osteomyelitis, this can be further evaluated with MRI. THIS IS AN ELECTRONICALLY VERIFIED FINAL REPORT 04/18/2025 9:35 AM - Electronically signed by Misha Buenrostro M.D. T: Report ID: [id number] Reading Location: [id number] Maty Kumar DPAlpa IMG XR PROCEDURES Final Resu lt * XR Foot Left Weight-Bearing 3 or More Views (04/16/2025 2:23 PM CDT) Anatomical Region Laterality Modality Lower Extremities, Foot Left Computed Radiography 04/18/2025 9:33 AM CDT Narrative 04/18/2025 9:35 AM CDT EXAM DESCRIPTION: 1. XR FOOT LEFT WEIGHT-BEARING 3 OR MORE VIEWS; 2. XR FOOT RIGHT WEIGHT-BEARING 3 OR MORE VIEWS REASON FOR STUDY: chronic toe osteomyelitis Pt states bilateral toe pain. Unknown how long. No known injury, no surgery. . FINDINGS: Three views each foot submitted without comparison. Right foot: Soft tissue wound involving the great toe is present. No focal cortical destruction. No acute fracture. 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 Hammertoe deformities are present. Large heel spur. Arterial atherosclerosis noted. Left foot: No acute fracture. Small heel spur. Mild pes cavus with mild midfoot osteoarthritis. Mild 1st metatarsophalangeal joint osteoarthritis. Great toe soft tissue wound is present. No focal cortical destruction. Hammertoe deformities are present. IMPRESSION: 1. Bilateral great toe soft tissue wounds. No focal cortical destruction identified. If persistent clinical concern for osteomyelitis, this can be further evaluated with MRI. THIS IS AN ELECTRONICALLY VERIFIED FINAL REPORT 04/18/2025 9:35 AM - Electronically signed by Misha Buenrostro M.D. T: Report ID: [id number] Reading Location: [id number] Procedure Note Misha Buenrostro MD - 04/18/2025 EXAM DESCRIPTION: 1. XR FOOT LEFT WEIGHT-BEARING 3 OR MORE VIEWS; 2. XR FOOT RIGHT WEIGHT-BEARING 3 OR MORE VIEWS REASON FOR STUDY: chronic toe osteomyelitis Pt states bilateral toe pain. Unknown how long. No known injury, nosurgery. . FINDINGS: Three views each foot submitted without comparison. Right foot: Soft tissue wound involving the great toe is present. No focal cortical destruction. No acute fracture. 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 Hammertoe deformities arepresent. Large heel spur. Arterial atherosclerosis noted. Left foot: No acute fracture. Small heel spur. Mild pes cavus with mild midfoot osteoarthritis. Mild 1st metatarsophalangeal joint osteoarthritis. Greattoe soft tissue wound is present. No focal cortical destruction. Hammertoe deformities are present. IMPRESSION: 1. Bilateral great toe soft tissue wounds. No focal corticaldestruction identified. If persistent clinical concern for osteomyelitis, this can be further evaluated with MRI. THIS IS AN ELECTRONICALLY VERIFIED FINAL REPORT 04/18/2025 9:35 AM - Electronically signed by Misha Buenrostro M.D. T: Report ID: [id number] Reading Location: [place] [address] Maty Kumar DPM IMG XR PROCEDURES Final Resu lt * (ABNORMAL) Aerobic and anaerobic culture and gram stain Wound Toe, great, left (04/16/2025 11:25 AMCDT) Direct Specimen Exam Stain: No polymorphonuclear leukocytes seen. No organisms seen. Comment:Testing performed by : [facility], [address] [place]., [id number] Report Final Report: Few Mixed skin microorganisms. Rare Juliana albicans (.) YURI Comment:Testing performed by : [facility], [address] [place]., [address] Organism MIXED SKIN MICROORGANISMS. YURI Organism JULIANA ALBICANS YURI Wound (Toe, great, left) 04/16/2025 11:25 AM CDT 04/16/2025 4:03 PM CDT Narrative YURI - 04/22/2025 2:58 PM CDT Specimen received on an ESwab. Testing performed by [facility] ([phone]) Specimens submitted from normally sterile body sites will have all bacterial morphotypes identified. Specimens that contain grossly mixed kedar and/or are from body sites that are not normally sterile will be examined for Staphylococcus aureus, Pseudomonas aeruginosa, beta-hemolytic strep, vancomycin-resistant Enterococcus, Bacteroides, Parabacteroides, Clostridium perfringens and fungus. If any of these are isolated, the organism will be reported. Current interpretive data was last revised on 2019. us Maty Kumar DPM LAB MICROBIOLOGY - GENERAL O RDERABLES Final Result YURI [facility] [address] Department [place] [address] * (ABNORMAL) eGFR (12/31/2024 6:54 AM CDT) eGFR 48(L) >=60 mL/min/1. 73 m2 Comment: Interpretive Data Reference Interval Normal >/= 90 mL/min/1.73m2 Mildly decreased* 60 - 89 mL/min/1.73m2 Mildly to moderately decreased 45 - 59 mL/min/1.73m2 Moderately to severely decreased 30 - 44 mL/min/1.73m2 Severely decreased 15 - 29 mL/min/1.73m2 Kidney Failure < 15 mL/min/1.73m2 *Relative to young adult level Estimated glomerular filtration rate is determined by the 2020 CKD-EPI equation recommended by the National Kidney Foundation (A Unifying Approach to GFR Estimation: Recommendations of the NKF-ASK Task Force on Reassessing the Inclusion of Race in Diagnosing Kidney Disease, JASN 2020). The CKD-EPI equation should not be used for patients with unstable renal function and has not been validated in children and those over 70. Current interpretive data was last reviewed 2021. Blood 12/31/2024 6:54 AM CDT 12/31/2024 6:58 AM CDT Kyle Torres MD LAB BLOOD ORDERABLES Final Resul t [facility] [address] Department [place] [address] from Last 3 Months or Most Recently Relevant to Health Maintenance Insurance MEDICARE BLUE CROSS MEDICARE SUPPLEMENT Advance Directives For more information, please contact: [phone] Documents on File Type Date Recorded Patient Email Deployment Specialist Expl anation Power of Sort Worker 12/31/2024 6:21 AM * Full Code (Latest Code Status on File) Date Activated Date Inactivated Comments 12/31/2024 9:22 AM 12/31/2024 4:34 PM Care Teams Clothing Patternmaker Relationship Specialty Start Date End Date Scott Dial MD [address] [place] [address] PCP - General Family Medicine 11/12/24
--- OUTSIDE RECORDS SUMMARY | 2025-06-30 13:51 | XMS_ITS | Clinical Summary ---
Author Organization [facility] Address [address] [place] [address] Care Team Providers Care Salesperson Burial Plots Name Role Phone Scott Dial MD Primary Care Provider [phone] Olinda Felton [facility]- Unavailable [phone] Elisha Munroe MD Unavailable [phone] Stanton Valenzuela MD Unavailable [phone] Samreen Liu PA-C Unavailable [phone] Kyle Torres MD Unavailable Antoinette Atkins MD Unavailable [phone] Allergies Active Allergy Reactions Criticality Noted Date Comments Penicillins Unknown 08/15/2020 Triclosan Rash Low 02/05/2024 Medications montelukast 10 MG tablet Take 1 tablet (10 mg total) by mouth nightly at bedtime. 11 8 Active fluticasone propionate 50 MCG/ACT nasal spray 2 sprays by Each Nostril route daily. 16 g 8 Active ferrous sulfate, 65 mg elemental, 325 (65 FE) MG tablet Take 1 tablet (325 mg total) by mouth daily with breakfast. Active aspirin 81 MG tablet Take 1 tablet (81 mg total) by mouth daily. 30 tablet 9 Active famotidine 20 MG tablet Take 1 tablet (20 mg total) by mouth 2 (two) times daily. 0 Active pantoprazole EC 40 MG tablet Take 1 tablet (40 mg total) by mouth daily. 1 Active Ascorbic Acid (VITAMIN C) 100 MG tablet Take 1 tablet (100 mg total) by mouth daily. Active tamsulosin (FLOMAX) 0.4 MG Cap Take 1 capsule (0.4 mg total) by mouth nightly at bedtime. 2 tablets 2 Active Vitamin D3, cholecalciferol , 2000 UNIT Tab tablet Take 1 tablet (2,000 Units total) by mouth daily. Active metoprolol succinate ER (TOPROL-XL) 25 MG 24 hr tablet Take 0.5 tablets (12.5 mg total) by mouth daily. 90 tablet 3 3 Active guaiFENesin ER (MUCINEX) 600 MG 12 hr tablet Take 1 tablet (600 mg total) by mouth 2 (two) times daily. Active clobetasol (TEMOVATE) 0.05 % cream Apply topically 2 (two) times daily. Active finasteride (PROSCAR) 5 MG tablet Take 1 tablet (5 mg total) by mouth daily. 3 Active hydrOXYzine (ATARAX) 25 MG tablet Take 1 tablet (25 mg total) by mouth 2 (two) times daily. Active albuterol sulfate HFA 108 (90 Base) MCG/ACT inhaler Inhale 2 puffs into the lungs every 6 (six) hours as needed for Wheezing. Active acetaminophen (TYLENOL) 325 MG tablet Take 2 tablets (650 mg total) by mouth 2 (two) times daily. Active bisacodyl EC (DULCOLAX) 5 MG Tab EC tablet Take 1 tablet (5 mg total) by mouth daily as needed. at bedtime. Active ARTERIAL PUMP, DME,Indications :Lower Leg Pain,and wounds Apply 1 Device topically daily. Indications: Lower Leg Pain, and wounds To both lower extremities 1 Device 1 4 Active spironolactone (ALDACTONE) 25 MG tabletIndicatio ns:Chronic diastolic congestive heart failure (CMS/HCC HHS/HCC) TAKE 1/2 TABLET BY MOUTH EVERY DAY 45 tablet 2 01/02/202 5 Active Additional Information Patient taking differently: 25 mgOral Daily, Reported on 01/21/2025 MULTIPLE VITAMIN OR Take 1 tablet by mouth daily. Active atorvastatin (LIPITOR) 40 MG tablet Take 1 tablet (40 mg total) by mouth daily. 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 15 g Active furosemide (LASIX) 40 MG tablet Take 1 tablet (40 mg total) by mouth 2 (two) times daily. 180 tablet 2 Active levothyroxine (SYNTHROID) 75 MCG tablet Take 1 tablet (75 mcg total) by mouth daily. Active metOLazone (ZAROXOLYN) 2.5 MG tablet Take 1 tablet (2.5 mg total) by mouth 3 (three) times a week. Active Active Problems Problem Noted Date Diagnosed Date CHF (congestive heart failure) 12/04/2024 Encounter for central line care 04/02/2024 PAD (peripheral artery disease) 02/11/2024 Acute osteomyelitis of phalanx of foot Overview (05/07/2024): Osteomyelitis of bilateral great toes spring, MSSA on initial culture (also with GNR that did not grow out). Followed by Infectious Disease. Encounter for management of peripherally inserted central catheter (PICC) 11/28/2023 Anemia 11/21/2023 Overview (05/07/2024): Suspect due to CKD; some benefit w/ PO iron supplmnt. Consider IV iron if Hb < 9. Hb stable 11.7 on . 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 Pacemaker 10/18/2021 Elevated TSH 10/18/2021 Edema 08/15/2020 Chronic heart failure with p reserved ejection fraction (HFpEF) 07/17/2018 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 2017 Wound of sternal region 05/29/2018 S/P mitral valve clip implantation 05/15/2018 Coronary artery disease invo lving coronary bypass graft of [place] heart without angina pectoris 04/09/2018 Hx of leukocytosis 04/04/2018 Chronic renal insufficiency, stage II (mild) 01/2018 Arthritis 04/10/2017 High risk medication use 04/04/2016 Hyperlipidemia 12/09/2015 Paroxysmal atrial fibrillation HTN (hypertension) Diabetes 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, 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, stage 4 Resolved Problems Problem Noted Date Diagnosed Date Resolved Date Other chest pain 05/17/2022 05/11/2024 Status post ablation of atrial fibrillation 05/17/2022 05/11/2024 Status post ligation of left atrial appendage 05/17/2005/11/2024 Overview (05/17/2022): Incomplete Severe mitral regurgitation 04/19/2022 05/11/2024 Nonrheumatic tricuspid valve regurgitation 03/12/2022 05/11/2024 Atrial tachycardia 10/19/2021 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 05/11/2024 Junctional bradycardia 04/11/201805/11 Volume overload 04/11/2018 05/11/2024 Abnormal stress test 04/04/2018 024 Dyspnea on exertion 04/04/2018 05/11/20 Arrhythmia 12/09/2015 05/11/2024 Encounter for preventive health examination 10/27/2013 04/08/2020 Dyslipidemia 05/11/2024 MR (mitral regurgitation) DM2 (diabetes mellitus, type 2) 05/11/2024 Encounters Date Type Department Care Team Description 05/25/2025 Telephone [facility] [address] [place] [address] Stanton Valenzuela MD Question 05/25/2025 Telephone [facility] [address] [place] [address] Malu Woods, ANP- Reschedule 04/29/2025 2:15 AM CDT Allied Health/Nurse Visit [facility] [address] [place] [address] Stanton Valenzuela MD 04/09/2025 10:49 AM CDT - 04/09/2025 11:59 PM CDT Hospital Encounter [facility] [place] [address] Cassandra Kee MD Durbin, Theresa M, PA-C Discharge Disposition: Home or Self Care (Routine Discharge) 04/09/2025 Orders Only [facility] [place] [address] Mariana Umana PA-C 04/09/2025 Travel from Last 3 Months Immunizations Immunization Administration Dates Next Due Influenza (Generic) 07/11/2017 Pneumococcal (Pneumovax 23) 04/12/2018 Pneumococcal (Prevnar 13) 01/24/2018 Family History Medical History Relation Comments Arthritis Father Heart Attack Father Heart Disease Father Heart Attack Maternal Grandfather Heart Attack Maternal Grandmother Cancer Mother Hypertension Mother Relation Status Comments Father Maternal Grandfather Maternal Grandmother Mother Social History Tobacco Use Types Packs/Day Years Used Date Smoking Tobacco: Former Pipe Q uit: 1970 Smokeless Tobacco: Never Tobacco Cessation:Counseling Given: Not Answered Alcohol Use Standard Drinks/Week Comments No 0 (1 standard drink = 0.6 oz pur e alcohol) [facility] Utilities Answer Date Recorded In the past 12 months has e [employer], gas, oil, or water [employer] threatened to shut off services in your [...] any time in the past 12 m [facility], were you homeless or living in [...] file Not on file Not on file Last Filed Vital Signs Vital Sign Reading Time Taken Comments Blood Pressure 120/78 01/21/2025 12:33 PM CDT Pulse 67 01/21/2025 12:33 PM CDT Temperature 36.6 C (97.9 F) 12/15/2024 12:33 PM CDT Respiratory Rate 18 01/21/2025 12:33 PM CDT Oxygen Saturation 96% 01/21/2025 12:33 PM CDT Inhaled Oxygen Concentration - - Weight 93.4 kg (206 lb) 01/21/2025 12:33 PM CDT Height 177.8 cm (5' 10) 01/21/2025 12:33 PM CDT Body Mass Index 29.56 01/21/2025 12:33 PM CDT Plan of Treatment Upcoming Encounters Date Type Department Care Team (Late st Contact Info) Description 07/07/2025 11:00 AM SALES AND MARKETING PROFESSIONAL Office Visit [facility] [address] [place] [phone] Stanton Valenzuela MD [address] [place], [place] [phone] 07/07/2025 11:00 AM SALES AND MARKETING PROFESSIONAL Allied Health/Nurse Visit [facility] [address] [place] [phone] Stanton Valenzuela MD [address] [place], [place] [address] 10/12/2025 2:15 AM CDT Allied Health/Nurse Visit [facility] [address] [place] [phone] Stanton Valenzuela MD [address] [place], [place] [address] 02/07/2026 11:30 AM CDT Office Visit [facility] [address] [place] [phone] Malu Woods, ANP-BC [address] [facility] [address] [place] [phone] Health Maintenance Due Date Last Done Comments Diabetes: Retinopathy Eye Exam 1955 DTaP, Tdap and Td Vaccines (1 - Tdap) 1956 Zoster Vaccines (1 of 2) 1987 Annual Medicare Wellness Visit 2002 RSV Immunization or 60+ Years (1 - 1-dose 75+ series) 2012 ASCVD LDL 07/24/2024 07/24/2023, 09/2019, 07/17/2018, Additional history exists Lipid Panel 07/24/2024 07/24/2023, 09/2019, 07/17/2018, Additional history exists PHQ-2 (Physician [place] 07/29/2024 Hemoglobin A1C 10/07/2024 04/09/2024, 09/27, 04/04/2018 COVID-19 Vaccine ( season) 2025 01/26/2021 Influenza Adult (#1) 2025 06/21/2020, 07/11/20 17 Pneumococcal Vaccine: 50+ Years Completed 07/06/2019, 04/12/2018, 01/24/2018 Hepatitis A Vaccines Aged Out No long er eligible based on patient's age to complete this topic Meningococcal B Vaccine Aged Out No l onger eligible based on patient's age to complete this topic Meningococcal Vaccine Aged Out No pablo erin eligible based on patient's age to complete this topic RSV Immunizations Under 20 Months Aged Out No longer eligible based on patient's age to complete this topic Goals Goal Patient Goal Type Associated Problems Recent Progress Patient-Stated? Author Family - family caregiver with be involved in care transitions and discharge planning General No Elena Stanley, RN Safety Patient/family will have appropriate support at home upon discharge General No Elena Stanley, worm grower - family caregiver with be involved in care transitions and discharge planning Lifestyle No Dara Hair RN Medical Devices Implanted Type Area Veneer Measurer Device Identifier Shelf Expiration Date Model / Serial / Lot Delgadilol Mitraclip Ntw-04/19/2022 Implanted:Qty: 1 on 04/19/2022 by Chu Varner MD Closure Device Heart [employer] 07/12/2022 [id number] / / [id number] Medtronic Rv Lead-04/11/2018 Implanted:04/11 by Niko Byrnes MD (Quantity not on file) Lead Implant Right: Heart [employer] 02/13/2020 5076-58 / [id number] / Medtronic Ra Lead-04/11/2018 Implanted:04/11 by Niko Byrnes MD (Quantity not on file) Lead Implant Right: Heart [employer] 02/27/2020 5076-52 / [id number] / Medtronic Duel Chamber Pacemaker-2017 Implanted:04/11 by Niko Byrnes MD (Quantity not on file) Pacemaker Left: Chest [employer] 04/11/2019 [id number] / [id number] / Description:MRI Conditional under following conditions: Static magnetic field of 1.5 T or 3 T, Max spatial gradient field of 2000 Gauss/cm or less, Max slew rate 200 T/m/s, 1.5 T whole body EBONI of 2 W /kg or less in Normal operating mode , Head EBONI 3.2 W/kg or less, 3T B1+ANALISA must be 2.8 mT or less for isocenter inferior to C7, Scans can be performed without B1+ANALISA restriction at 3T when isocenter is at or superior to C7 (4W/kg or less whole body) Insert Clamp Latis; Stlth 5 90mm Mesh Ltxfr - [id number] Implanted:Qty: 1 on 04/09/2018 by Romel Santamaria MD at [facility] [employer] JESSIE 12/09/2022 [id number] / / [id number] Description:Not implanted Atriclip-Flex Tessie Exclusion Atricure 45mm - [id number] Implanted:Qty: 1 on 04/09/2018 by Romel Santamaria MD at [facility] N/A: Heart ATRICURE 11/26/2020 ACH 145 / / [id number] Explanted Type Area Veneer Measurer Device Identifier Shelf Expiration Date Model / Serial / Lot Kamrar Watchman Flx-04/19/2022 Implanted:Qty: 1 on 04/19/2022 by Chu Varner MD Explanted:Qty: 1 on 04/20/2022 by Chu Varner MD Closure Device Heart [employer] 02/27/2025 [id number] / / [id number] Procedures Procedure Name Priority Date/Time Associated Diagnosis Comments HC CBC AUTO W/AUTO DIFF Routine 04/09/2025 11:20 AM CDT Chronic kidney disease, stage 3 unspecified (CMS/HCC) HC RENAL PANEL Routine 04/09/2025 11:20 AM CDT Chronic kidney disease, stage 3 unspecified (CMS/HCC) HC MICROALBUMIN URINE QN Routine 04/09/2025 11:12 AM CDT Chronic kidney disease, stage 3 unspecified (CMS/HCC) HEMOGLOBIN, GLYCOSYLATED Routine 04/09/2024 10:43 AM CDT Type 2 diabetes mellitus without complications LIPID PANEL Routine 07/24/2023 from Last 3 Months or Most Recently Relevant to Health Maintenance Results * (ABNORMAL) RENAL FUNCTION PANEL (04/09/2025 11:20 AM CDT) SODIUM S/P/B 139 136 - 145 MMOL/L 04/09/2025 11:45 AM CDT [facility] POTASSIUM S/P/B 3.9 3.5 - 5.1 MMOL/L 04/09/2025 11:45 AM CDT [facility] CHLORIDE S/P/B 101 98 - 107 MMOL/L 04/09/2025 11:45 AM CDT [facility] CO2 30.2 21.0 - 32.0 MMOL/L 04/09/2025 11:45 AM CDT [facility] GLUCOSE 116(H) 70 - 99 MG/DL 04/09/2025 11:45 AM CDT [facility] Comment: FASTING GLUCOSE 100 TO 125 MG/DL IS CONSISTENT WITH IMPAIRED FASTING GLUCOSE. FASTING GLUCOSE >125 MG/DL IS CONSISTENT WITH DIABETES. RANDOM GLUCOSE >200 MG/DL WITH HYPERGLYCEMIC SYMPTOMS IS CONSISTENT WITH DIABETES. PER ADA GUIDELINES BUN 20 6 - 24 MG/DL 04/09/2025 11:45 AM CDT [facility] CREATININE S/P/B 1.48(H) 0.70 - 1.30 MG/DL 04/09/2025 11:45 AM CDT [facility] CALCIUM S/P/B 9.0 8.4 - 10.5 MG/DL 04/09/2025 11:45 AM T [facility] ALBUMIN S/P/B 3.3(L) 3.4 - 5.0 G/DL 04/09/2025 11:45 AM CDT [facility] PHOSPHORUS 3.5 2.6 - 4.7 MG/DL 04/09/2025 11:45 AM CDT [facility] ANION GAP 7.8 5.0 - 15.0 MMOL/L 04/09/2025 11:45 AM T [facility] OSMOLALITY (CALC) 292 MOSM/KG 025 11:45 AM T [facility] Comment:REFERENCE RANGE NOT ESTABLISHED GFR ESTIMATE 45(L) >89 ML/MIN/1. 73 M2 04/09/2025 11:45 AM T [facility] GFR NOTES GFR REFERENCE S: 04/09/2025 11:45 AM [facility] Comment: THE ESTIMATED GFR IS CALCULATED USING THE 2020 CKD-EPI EQUATION. THE FOLLOWING CATEGORIES FOR GRADING RENAL FUNCTION ARE RECOMMENDED BY THE INTERNATIONAL SOCIETY OF NEPHROLOGY (KDIGO 2012 CLINICAL PRACTICE GUIDELINE). G1,NORMAL OR HIGH: >89 ml/min/1.73 m2 G2,MILDLY DECREASED: 60-89 ml/min/1.73 m2 G3A,MILDLY TO MODERATELY DECREASED: 45-59 ml/min/1.73 m2 G3B,MODERATELY TO SEVERELY DECREASED: 30-44 ml/min/1.73 m2 G4,SEVERELY DECREASED: 15-29 ml/min/1.73 m2 G5,KIDNEY FAILURE: <15 ml/min/1.73 m2 04/09/2025 11:2 0 AM CDT us Mariana Umana PA-C LABORATORY Final Resu lt [facility] [address] [place] [address], * (ABNORMAL) CBC W/DIFF AUTOMATED (04/09/2025 11:20 AM CDT) WBC 8.43 4.00 - 10.80 x10'3/uL 04/09/2025 11:29 AM CDT [facility] RBC 3.78(L) 4.50 - 6.10 x10'6/uL 04/09/2025 11:29 AM CDT [facility] HGB 12.0(L) 13.0 - 18.0 G/DL 04/09/2025 11:29 AM CDT [facility] HCT 36.1(L) 37.0 - 52.0 % 04/09/2025 11:29 AM CDT [facility] MCV 95.5 78.0 - 100.0 FL 04/09/2025 11:29 AM CDT [facility] MCH 31.7(H) 27.0 - 31.0 PG 04/09/2025 11:29 AM CDT [facility] MCHC 33.2 33.0 - 36.0 G/DL 04/09/2025 11:29 AM CDT [facility] RDW 13.7 11.5 - 14.5 % 04/09/2025 11:29 AM CDT [facility] PLT 181 150 - 350 x10'3/uL 04/09/2025 11:29 AM CDT [facility] MPV 8.8 7.4 - 10.4 FL 04/09/2025 11:29 AM CDT [facility] CBC COMMENT NORMAL REFERENCE RANGE NOT ESTABLISHED FOR THE PROPORTIONAL LEUKOCYTE DIFFERENTIAL. 04/09/2025 11:29 AM CDT [facility] NEUTROPHILS % 61.2 % 04/09/2025 11:29 AM CDT [facility] LYMPHOCYTES % 24.1 % 04/09/2025 11:29 AM CDT [facility] MONOCYTES % 10.4 % 04/09/2025 11:29 AM CDT [facility] EOSINOPHILS % 3.0 % 04/09/2025 11:29 AM CDT [facility] BASOPHILS % 0.9 % 04/09/2025 11:29 AM CDT [facility] IMMATURE GRANS % 0.4 % 04/09/20 11:29 AM CDT [facility] NRBC % 0.0 % 04/09/2025 11:29 AM CDT [facility] ABS. NEUTROPHILS 5.16 1.60 - 8.30 x10'3/uL 04/09/2025 11:29 AM CDT [facility] ABS. LYMPHOCYTES 2.03 0.80 - 4.70 x10'3/uL 04/09/2025 11:29 AM CDT [facility] ABS. MONOCYTES 0.88 0.00 - 1.50 x10'3/uL 04/09/2025 11:29 AM CDT [facility] ABS. EOSINOPHILS 0.25 0.00 - 0.40 x10'3/uL 04/09/2025 11:29 AM CDT [facility] ABS. BASOPHILS 0.08 0.00 - 0.20 x10'3/uL 04/09/2025 11:29 AM CDT [facility] ABS. IMMATURE GRANULOCYTES 0.03 0.00 - 0.03 x10'3/uL 04/09/2025 11:29 AM CDT [facility] ABS. NUCLEATED RBC'S 0.00 0.00 - 0.01 x10'3/uL 04/09/2025 11:29 AM CDT [facility] 04/09/2025 11:2 0 AM CDT us Mariana Umana PA-C LABORATORY Final Resu lt [facility] [address] [place] [address], * ALBUMIN CREATININE URINE RANDOM (04/09/2025 11:12 AM CDT) ALBUMIN (U) 0.2 MG/DL 04/09/2025 11:34 AM CDT [facility] Comment:REFERENCE RANGE NOT ESTABLISHED CREATININE RANDOM (U) 27.0 MG/DL 04/09/2025 11:34 AM CDT [facility] Comment:REFERENCE RANGE NOT ESTABLISHED ALBUMIN/CREAT RATIO 7.4 <30 MG/G 04/09/2025 11:34 AM CDT [facility] Comment: NORMAL TO MILDLY INCREASED ALBUMINURIA: <30 MG/G MODERATELY INCREASED ALBUMINURIA: 30 TO 300 MG/G SEVERELY INCREASED ALBUMINURIA: >300 MG/G PER KDIGO URINE SPECIMEN / Unknown 04/09/2025 11:12 AM CDT Mariana Umana PA-C URINE ORDERABLES Final Res ult Performing Organization Address City/[facility]/ZIP Co de Phone Number [facility] [address] [place] [address], [place] [phone] * HEMOGLOBIN, GLYCOSYLATED (04/09/2024 10:43 AM CDT) HGB A1C 5.4 <5.7 % 04/10/2024 2:06 PM CDT [facility] ESTIMATED AVG GLUCOSE 108 74 - 114 MG/DL 04/10/2024 2:06 PM CDT [facility] 04/09/2024 10:4 3 AM CDT Betzaida Solis NP LABORATORY Final Result [facility] [address] [place] [address], [place] [phone] [id number] * LIPID PANEL (07/24/2023) CHOLESTEROL 149 TRIGLYCERIDES 122 HDL 56 LDL (CALCULATED) 69 CHOL/HDL RATIO 2.7 VLDL CALCULATION 24 Narrative Resulting Agency Comment [place], [facility] Scott Dial MD LABORATORY Final Result from Last 3 Months or Most Recently Relevant to Health Maintenance Insurance MEDICARE MEDICARE Advance Directives * DNR (Latest Code Status on File) Date Activated Date Inactivated Comments 12/05/2024 5:10 AM 12/06/2024 5:07 PM * Full Code Date Activated Date Inactivated Comments 04/19/2022 7:48 AM 04/20/2022 2:12 PM * DNR Date Activated Date Inactivated Comments 10/18/2021 9:50 PM 10/23/2021 7:33 PM * Full Code Date Activated Date Inactivated Comments 04/09/2018 2:46 PM 04/18/2018 4:47 PM * Full Code Date Activated Date Inactivated Comments 04/04/2018 9:00 AM 04/04/2018 4:55 PM Care Teams Salesperson Burial Plots Relationship Specialty Start Date End Date Scott Dial MD [address] [place] [address] PCP - General FAMILY PRACTICE 01/14/18 [facility] [address] [address] CARDIOVASCULAR DISEASE 05/29/18 Kan-Elisha Blanca MD [address] [place] [address] Surgeon NEUROLOGICAL SURGERY 11/14/21 Stanton Valenzuela MD [address] [place] [address] Consulting Physician CLINICAL CARDIAC ELECTROPHYSIOLOGY 05/02/22 Samreen Liu PA-C [address] [place] [address] Referring Physician PHYSICIAN RECORDS TECHNICIAN 05/28/23 Kyle Torres MD [address] [place] [address] VASCULAR SURGERY 11/12/24 11/12/25 Antoinette Atkins MD [facility] [place] [phone] Internal Medicine - Infectious Disease 11/16/24 11/16/25
--- OUTSIDE RECORDS SUMMARY | 2025-06-30 13:51 | XMS_ITS | Encounter Summary ---
Author Organization [facility] Address [address] [place] [address] Care Team Providers Care Sweet Dough Mixer Name Role Phone Scott Dial MD Primary Care Provider [phone] Olinda Felton [facility]- Unavailable [phone] Kan-Elisha Blanca MD Unavailable [phone] Chu Varner MD Unavailable [phone] Mina Hutchins MD Unavailable [phone] Stanton Valenzuela MD Unavailable [phone] Samreen Liu PA-C Unavailable [phone] Cabrera Mary MD Unavailable Antoinette Atkins MD Unavailable [phone] Jesus Abreu MD Unavailable Mina Hutchins MD Unavailable +[phone] Zoie Parra NP Unavailable [phone] Franklin Costa DPM Unavailable Kyle Torres MD Unavailable Antoinette Atkins MD Unavailable [phone] Encounter Details Date Type Department Care Team (Late st Contact Info) Description 05/07/2024 [facility] [address] [place] [address] Jamila Appiah, PLATER PRODUCTION [address] [place] [address] Leg compression for Khanh Randall Social History Tobacco Use Types Packs/Day Years [...] Assessment Author Status No 05/16/2022 10:00 PM Faustina Yeung RN Active documented as of this encounter Mental Status * Because of a physical, mental, or emotional condition, do you have serious difficulty concentrating, remembering, or making decisions? Answer Entry Date Author Status No 05/16/2022 10:00 PM CDT Faustina Humphries, RN Active documented in this encounter Plan of Treatment Upcoming Encounters Date Type Department Care Team (Late st Contact Info) Description 07/07/2025 11:00 AM DIFFERENTIAL TESTER Office Visit [facility] [address] [place] [address] Stanton Valenzuela MD [address] [place] [address] 07/07/2025 11:00 AM DIFFERENTIAL TESTER Allied Health/Nurse Visit [address] [place] [address] Stanton Valenzuela MD [address] [place], [place] [address] 10/12/2025 2:15 AM CDT Allied Health/Nurse Visit [facility] [address] [place] [address] Stanton Valenzuela MD [address] [place] [address] 02/07/2026 11:30 AM CDT Office Visit [facility] [address] [place] [address] Malu Woods, ANP-BC [address] [facility] [address] [place] [address] documented as of this encounter Goals Goal Patient Goal Type Associated Problems Recent Progress Patient-Stated? Author Family - family caregiver with be involved in care transitions and discharge planning General No Elena Stanley, JCARLOS Safety Patient/family will have appropriate support at home upon discharge General No Elena Stanley, coding machine operator - family caregiver with be involved in care transitions and discharge planning Lifestyle No Dara Hair RN documented as of this encounter Visit Diagnoses Not on filedocumented in this encounter Care Teams Sweet Dough Mixer Relationship Specialty Start Date End Date Scott Dial MD [address] [place] [address] PCP - General FAMILY PRACTICE 01/14/18 [facility] [address] [address] CARDIOVASCULAR DISEASE 05/29/18 Kan-Elisha Blanca MD [address] [place] [address] Surgeon NEUROLOGICAL SURGERY 11/14/21 Chu Varner MD [address] [place] [address] Consulting Physician INTERVENTIONAL CARDIOLOGY 04/16/22 08/12/24 Mina Hutchins MD [address] [place] [address] Consulting Physician INTERVENTIONAL CARDIOLOGY 04/23/22 12/06/24 Stanton Valenzuela MD [address] [place] [address] Consulting Physician CLINICAL CARDIAC ELECTROPHYSIOLOGY 05/02/22 Samreen Liu PA-C [address] [place] [address] Referring Physician PHYSICIAN PLANT SCIENCES PROFESSOR 05/28/23 Cabrera Mary MD [address] [place] [address] [place] [address] Consulting Physician CARDIOVASCULAR DISEASE 10/23/23 Antoinette Atkins MD [address] [place] [phone] Internal Medicine - Infectious Disease 10/30/23 10/29/24 [place] [address] [address] Surgeon WOUND CARE 10/30/23 10/29/24 Mina Hutchins MD [address] [place] [address] Consulting Physician INTERVENTIONAL CARDIOLOGY 02/11/24 12/06/24 Zoie Parra NP [address] [place] [phone] Nurse Practitioner Nurse Practitioner Family 05/26/24 12/07/24 Franklin Costa DPM [address] [place] [address] Referring Physician PODIATRY/SURGERY 06/03/24 06/03/25 Kyle Torres MD [facility] [address] VASCULAR SURGERY 11/12/24 11/12/25 Antoinette Atkins MD [address] [place] [phone] Internal Medicine - Infectious Disease 11/16/24 11/16/25 documented as of this encounter
--- OUTSIDE RECORDS SUMMARY | 2025-06-30 13:51 | XMS_ITS | Encounter Summary ---
Author Organization [facility] Address [address] [place] [address] Care Team Providers Care Mattress Filler Name Role Phone Scott Dial MD Primary Care Provider [phone] Gwendolyn Mcguire MD, Robert Unavailable [phone] Malu Woods ANP-BC Unavailable + [phone] Romel Santamaria MD Unavailable Unavailable Olinda Felton AGACNP-BC Unavailable +[phone] Niko Byrnes MD Unavailable UnavailJess Salcedo NP Unavailable Unavailable Elisha Munroe MD Unavailable [phone] Chu Varner MD Unavailable [phone] Mina Hutchins MD Unavailable +[phone] Stanton Valenzuela MD Unavailable +[phone] Samreen Liu PA-C Unavailable +[phone] Cabrera Mray MD Unavailable Antoinette Atkins MD Unavailable [phone] Jesus Abreu MD Unavailable Mina Hutchins MD Unavailable +[phone] Zoie Parra NP Unavailable [phone] Julissa Franklin DPM Unavailable Kyle Torres MD Unavailable Antoinette Atkins MD Unavailable [phone] Encounter Details Date Type Department Care Team (Late Contact Info) Description 09/09/2018 Abstract [facility] [address] [place] [phone] Melvin Snow MD [address] [facility] [address] [place] [address] Social History Tobacco Use Types Packs/Day Years [...] st Contact Info) Description 07/07/2025 11:00 AM TRIALS MANAGER [facility] Visit [facility] [place] [address] [place] [address] Stanton Valenzuela MD [address] [place] [address] 07/07/2025 11:00 AM TRIALS MANAGER Allied Health/Nurse Visit [facility] [place] [address] [place] [phone] Stanton Valenzuela MD [address] [place] [address] 10/12/2025 2:15 AM CDT [facility] [address] [place] [phone] Stanton Valenzuela MD [address] [place], [place] [address] 02/07/2026 11:30 AM CDT [facility] [place] [phone] Malu Woods, ANP-BC [address] [facility] [address] [place] [address] documented as of this encounter Procedures Procedure Name Priority Date/Time Associated Diagnosis Comments CBC (OUTSIDE LAB) Routine 07/17/2018 BASIC METABOLIC PANEL Routine 07/17/2018 LIPID PANEL Routine 07/17/2018 THYROID STIM HORMONE TSH Routine 07/17/2018 documented in this encounter Results * BASIC METABOLIC PANEL (07/17/2018) SODIUM S/P/B 131 POTASSIUM S/P/B 3.9 CO2 30.0 CHLORIDE S/P/B 92 GLUCOSE 84 mg/dL CALCIUM S/P/B 8.9 BUN 19 CREATININE S/P/B 1.14 0.7 - 1.3 EGFR NON-AFR. AMER. 62 <=90 07/17/2018 us [facility] Final Result * CBC (OUTSIDE LAB) (07/17/2018) WBC 8.6 HGB 11.4 HCT 34.6 PLT 230 RBC 4.0 07/17/2018 [facility] Abstract LAB-OUTSIDE/ABSTRACTED Final Result * THYROID STIM HORMONE, TSH (07/17/2018) TSH 4.150 0.45 - 5.330 07/17/2018 us [facility] Final Result * LIPID PANEL (07/17/2018) CHOLESTEROL 108 HDL 47 TRIGLYCERIDES 92 DIRECT LDL 48.4 07/17/2018 us Doc [facility] Final Result [...] documented as of this encounter Care Teams Mattress Filler Relationship Specialty Start Date End Date Scott Dial MD [address] [place] [address] PCP - General FAMILY PRACTICE 01/14/18 Melvin Snow MD [address] [place] [address] [place] Policy Writer INTERVENTIONAL CARDIOLOGY 01/14/18 05/27/23 Malu Woods ANP- [address] [facility] [address] [place] [address] CARDIOVASCULAR DISEASE 01/14/18 Romel Santamaria MD 9 [facility] [address] [place] [address] CARDIOTHORACIC SURGERY 04/10/18 04/15/22 Olinda Felton AGACNP-BC [address] [place] [address] CARDIOVASCULAR DISEASE 05/29/18 Niko Byrnes MD [address] [place] [address] EP Policy Writer CLINICAL CARDIAC ELECTROPHYSIOLOGY 06/13/18 04/19/22 Jess Wiley NP [address] [place] [address] Nurse Practitioner Electrophysiology 06/13/18 05/27/23 Elisha Munroe MD [address] [place] [address] Surgeon NEUROLOGICAL SURGERY 11/14/21 Chu Varner MD [address] [place] [address] Consulting Physician INTERVENTIONAL CARDIOLOGY 04/16/22 08/12/24 Mina Hutchins MD [address] [place] [address] Consulting Physician INTERVENTIONAL CARDIOLOGY 04/23/22 12/06/24 Stanton Valenzuela MD [address] [place] [address] Consulting Physician CLINICAL CARDIAC ELECTROPHYSIOLOGY 05/02/22 Samreen Liu PA-C [address] [place] [address] Referring Physician PHYSICIAN OWNER PROFESSIONAL ENGINEER 05/28/23 Cabrera Mary MD [address] [place] [address] [place] [address] Consulting Physician CARDIOVASCULAR DISEASE 10/23/23 Antoinette Atkins MD [address] [place] [phone] Internal Medicine - Infectious Disease 10/30/23 10/29/24 [place] [address] [phone] Surgeon WOUND CARE 10/30/23 10/29/24 Mina Hutchins MD [address] [place] [address] Consulting Physician INTERVENTIONAL CARDIOLOGY 02/11/24 12/06/24 Zoie Parra NP [address] [place] [address] [phone] Nurse Practitioner Nurse Practitioner Family 05/26/24 12/07/24 Franklin Costa DPM [address] [place] [address] Referring Physician PODIATRY/SURGERY 06/03/24 06/03/25 Kyle Torres MD [facility] [address] [address] VASCULAR SURGERY 11/12/24 11/12/25 Antoinette Atkins MD [address] [phone] Internal Medicine - Infectious Disease 11/16/24 11/16/25 documented as of this encounter
--- OUTSIDE RECORDS SUMMARY | 2025-06-30 13:51 | XMS_ITS | Patient Health Record ---
Author Organization [facility] Address [address] [facility] [address] [place], [place] [address] Care Team Providers Care Wildlife Conservation Professor Name Role Phone JEFFRY MARCUM Unavailable [phone] Joseph Dial Unavailable Unavailable Allergies Allergen (clinical drug ingredient) Drug/Non Drug Allergy documented on EMR Reaction Allergy Type Onset Date Status Penicillin Unknown Drug Allergy Active Reason For Referral No Information Immunizations Vaccine Route Administration Date Status Comme nts Influenza, high dose seasonal Unknown 06/08/2024 Refuse d Pneumococcal conjugate PCV 13 Unknown 06/08/2024 Refuse d Encounters Encounter Location Date Provider Diagnosis [facility] [address] [place] [phone] 08/10/2024 JEFFRY SNOOK Tinea unguium B35.1 ; Pain in right toe(s) M79.674 ; Pain in left toe(s) M79.675 and 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, bilateral legs I70.213 [facility] [address] [place] [phone] 10/12/2024 JEFFRY SNOOK Tinea unguium B35.1 ; Pain in right toe(s) M79.674 ; Pain in left toe(s) M79.675 and 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 NAIL DEBRIDEMENT: Nails 1-5 Bilateral were debrided extensively with nail nippers and emery board, reducing length and girth to pink healthy tissue with any subungual debris and necrotic tissue removed 08/10/2024 Pain in right toe(s) (ICD-10 - M79.674) 10/12/2024 Tinea unguium (ICD-10 - B35.1) FUNGAL TOENAILS: Discussed various treatment options for fungal toenails including debridement, topical antifungals, oral antifungals, toenail avulsion, or toenail matrixectomy. 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
[2025-06-30] MEDS: HYDROcodone/acetaminophen (*CRX) 5-325 MG TABLET 1 TAB PO (14:03)
[2025-06-30] MEDS: KETOROLAC 30 MG/ML VIAL (*BKC) 15 MG IM (14:27)
--- OUTSIDE RECORDS SUMMARY | 2025-06-30 14:28 | XMS_ITS | Encounter Summary ---
Author Organization [facility] Address [address] [place] [address] Care Team Providers Care Public Relations Assistant Name Role Phone Scott Dial MD Primary Care Provider [phone] Olinda Felton AGACNP-BC Unavailable [phone] Elisha Munroe MD Unavailable [phone] Stanton Valenzuela MD Unavailable [phone] Samreen Liu PA-C Unavailable [phone] Zoie Parra NP Unavailable [phone] Franklin Costa DPM Unavailable Kyle Torres MD Unavailable Antoinette Atkins MD Unavailable [phone] Encounter Details Date Type Department Care Team (Late st Contact Info) Description 12/07/2024 Hospital Follow-up Call [facility] [address] [place] [address] Yajaira Villa, RN Social History Tobacco Use Types Packs/Day Years Used Date Smoking Tobacco: Former Pipe Q uit: 1970 Smokeless Tobacco: Never Alcohol Use Standard Drinks/Week Comments No 0 (1 standard drink = 0.6 oz pur e alcohol) [facility] Utilities Answer Date Recorded In the [...] any time in the past 12 m [facility], were you homeless or living in a long term (including now)? No 12/04/2024 Sex and Gender [...] st Contact Info) Description 07/07/2025 11:00 AM TANK HOUSE OPERATOR Office Visit [facility] [place] [address] Stanton Valenzuela MD [address] [place] [address] 07/07/2025 11:00 AM TANK HOUSE OPERATOR Allied Health/Nurse Visit [facility] [place] [address] Stanton Valenzuela MD [address] [place], [place] [address] 10/12/2025 2:15 AM CDT [facility] [address] [place] [address] Stanton Valenzuela MD [address] [place], [place] [address] 02/07/2026 11:30 AM CDT [facility] [place] [address] Malu Woods ANP-BC [address] [facility] [address] [place] [address] documented as of this encounter Goals Goal Patient Goal Type Associated Problems Recent Progress Patient-Stated? Author Family - family caregiver with be involved in care transitions and discharge planning General No Elena Stanley, JCARLOS Safety Patient/family will have appropriate support at home upon discharge General No Elena Stanley, supervisor instrument mechanics - family caregiver with be involved in care transitions and discharge planning Lifestyle No Dara Hair RN documented as of this encounter Visit Diagnoses Not on filedocumented in this encounter Care Teams Public Relations Assistant Relationship Specialty Start Date End Date Scott Dial MD [address] [place] [address] PCP - General FAMILY PRACTICE 01/14/18 Olinda Felton AGACNP- [address] [place] [address] [place] [address] CARDIOVASCULAR DISEASE 05/29/18 Elisha Munroe MD [address] [place] [address] Surgeon NEUROLOGICAL SURGERY 11/14/21 Stanton Valenzuela MD [address] [place] [address] Consulting Physician CLINICAL CARDIAC ELECTROPHYSIOLOGY 05/02/22 Samreen Liu PA-C [address] [place] [address] Referring Physician PHYSICIAN CARCASS TRIMMER 05/28/23 Zoie Parra NP [address] [place] [address] [address] Nurse Practitioner Nurse Practitioner Family 05/26/24 12/07/24 Franklin Costa DPM [address] [place] [address] Referring Physician PODIATRY/SURGERY 06/03/24 06/03/25 Kyle Torres MD [address] [place] [phone] VASCULAR SURGERY 11/12/24 11/12/25 Antoinette Atkins MD [address] [place] [phone] Internal Medicine - Infectious Disease 11/16/24 11/16/25 documented as of this encounter
--- OUTSIDE RECORDS SUMMARY | 2025-06-30 14:28 | XMS_ITS | Encounter Summary ---
Author Organization [facility] Address [address] [place] [address] Care Team Providers Care Binder Technician Name Role Phone Scott Dial MD Primary Care Provider [phone] Olinda Felton [facility]- Unavailable [phone] Kan-Elisha Blanca MD Unavailable [phone] Chu Varner MD Unavailable [phone] Mina Hutchins MD Unavailable [phone] Stanton Valenzuela MD Unavailable [phone] Samreen Liu PA-C Unavailable [phone] Cabrera Mary MD Unavailable Antoinette Atkins MD Unavailable [phone] Jesus Abreu MD Unavailable Mina Hutchins MD Unavailable [phone] Zoie Parra NP Unavailable [phone] Franklin Costa DPM Unavailable Kyle Torres MD Unavailable Antoinette Atkins MD Unavailable [phone] Encounter Details Date Type Department Care Team (Late st Contact Info) Description 03/18/2024 Hospital Orders Only [facility] [address] [facility] [place] [address] Antoinette Atkins MD [address] [facility] 3 [place] [phone] Social History Tobacco Use Types Packs/Day Years [...] AM CDT Shadia Guajardo RN Active * [place] Suicide Severity Rating Scale (Screener/Recent Self-Report) Question [...] st Contact Info) Description 07/07/2025 11:00 AM MELTER OPERATOR Office Visit [facility] [address] [place] [address] Stanton Valenzuela MD [address] [place] [address] 07/07/2025 11:00 AM MELTER OPERATOR Allied Health/Nurse Visit [facility] [address] [place] [address] Stanton Valenzuela MD [address] [place] [address] 10/12/2025 2:15 AM CDT Allied Health/Nurse Visit [facility] [address] [place] [address] Stanton Valenzuela MD [address] [place] [address] 02/07/2026 11:30 AM CDT Office Visit [facility] [address] [place] [phone] Malu Woods, ANP- [address] [facility] [address] [place] [address] documented as of this encounter Goals Goal Patient Goal Type Associated Problems Recent Progress Patient-Stated? Author Family - family caregiver with be involved in care transitions and discharge planning General No Elena Stanley, RN Safety Patient/family will have appropriate support at home upon discharge General No Elena Stanley, gear cutter - family caregiver with be involved in care transitions and discharge planning Lifestyle No Dara Hair RN documented as of this encounter Visit Diagnoses Not on filedocumented in this encounter Care Teams Binder Technician Relationship Specialty Start Date End Date Scott Dial MD [address] [place] [address] PCP - General FAMILY PRACTICE 01/14/18 [facility] Fel[facility] [address] [place] [address] CARDIOVASCULAR DISEASE 05/29/18 Elisha Munroe MD [address] [place] [address] Surgeon NEUROLOGICAL SURGERY 11/14/21 Chu Varner MD [address] [place] [address] Consulting Physician INTERVENTIONAL CARDIOLOGY 04/16/22 08/12/24 Mina Hutchins MD [address] [place] [address] Consulting Physician INTERVENTIONAL CARDIOLOGY 04/23/22 12/06/24 Stanton Valenzuela MD [address] [place] [address] Consulting Physician CLINICAL CARDIAC ELECTROPHYSIOLOGY 05/02/22 Samreen Liu PA-C [address] [place] [address] Referring Physician PHYSICIAN BOTTLING ATTENDANT 05/28/23 Cabrera Mary MD [address] [place] [address] [place] [address] Consulting Physician CARDIOVASCULAR DISEASE 10/23/23 Antoinette Atkins MD [address] [phone] Internal Medicine - Infectious Disease 10/30/23 10/29/24 [place] [address] [address] Surgeon WOUND CARE 10/30/23 10/29/24 Mina Hutchins MD [address] [place] [address] Consulting Physician INTERVENTIONAL CARDIOLOGY 02/11/24 12/06/24 Zoie Parra NP [address] [place] [address] [address] Nurse Practitioner Nurse Practitioner Family 05/26/24 12/07/24 Franklin Costa DPM [address] [place] [address] Referring Physician PODIATRY/SURGERY 06/03/24 06/03/25 Kyle Torres MD [address] [place] [address] VASCULAR SURGERY 11/12/24 11/12/25 Antoinette Atkins MD [address] [place] [phone] Internal Medicine - Infectious Disease 11/16/24 11/16/25 documented as of this encounter
--- OUTSIDE RECORDS SUMMARY | 2025-06-30 14:28 | XMS_ITS | Encounter Summary ---
Author Organization [facility] Address [address] [place] [address] Care Team Providers Care Admitting Representative Name Role Phone Scott Dial MD Primary Care Provider [phone] Gwendolyn Mcguire MD, Robert Unavailable [phone] Malu Woods ANP-BC Unavailable + [phone] Olinda Felton AGACNP-BC Unavailable +[phone] Jess Wiley NP Unavailable Unavailable [facility] MD Unavailable [phone] Chu Varner MD Unavailable [phone] Mina Hutchins MD Unavailable +[phone] Satnton Valenzuela MD Unavailable +[phone] Samreen Liu PA-C Unavailable +[phone] Cabrera Mary MD Unavailable Antoinette Atkins MD Unavailable [phone] Jesus Abreu MD Unavailable Mina Hutchins MD Unavailable [phone] Zoie Parra NP Unavailable +[phone] Franklin Costa DPM Unavailable Kyle Torres MD Unavailable Antoinette Atkins MD Unavailable [phone] Encounter Details Date Type Department Care Team (Late st Contact Info) Description 04/23/2022 Hospital Follow-up Call [facility] [address] [place] [address] Yajaira Villa RN Social History Tobacco Use [...] st Contact Info) Description 07/07/2025 11:00 AM BIKE DESIGNER Office Visit [facility] [address] [place] [address] Stanton Valenzuela MD [address] [place] [address] 07/07/2025 11:00 AM BIKE DESIGNER Allied Health/Nurse Visit [facility] [address] [place] [address] [phone] Stanton Valenzuela MD [address] [place], [place] [address] [phone] 10/12/2025 2:15 AM CDT Allied Health/Nurse Visit [facility] [address] [place] [address] Stanton Valenzuela MD [address] [place] [address] 02/07/2026 11:30 AM CDT Office Visit [facility] [address] [place] [address] Malu Woods, ANP-BC [address] [facility] [address] [place] [address] documented as of this encounter Goals Goal Patient Goal Type Associated Problems Recent Progress Patient-Stated? Author Family - family caregiver with be involved in care transitions and discharge planning General No Elena Stanley, JCARLOS Safety Patient/family will have appropriate support at home upon discharge General Elena Martinez, academic coach - family caregiver with be involved in care transitions and discharge planning Lifestyle Dara Hay RN documented as of this encounter Visit Diagnoses Not on filedocumented in this encounter Care Teams Admitting Representative Relationship Specialty Start Date End Date Scott Dial MD [address] [place] [address] PCP - General FAMILY PRACTICE 01/14/18 Melvin Snow MD [address] [place] [address] Boss Food Production Manager INTERVENTIONAL CARDIOLOGY 01/14/18 05/27/23 Malu Woods [facility]- [facility] [address] [address] CARDIOVASCULAR DISEASE 01/14/18 Olinda Felton AGACNP- [address] [address] CARDIOVASCULAR DISEASE 05/29/18 Jess Wiley, ASSISTANT SIGNAL MAINTAINER [address] [address] Nurse Practitioner Electrophysiology 06/13/18 05/27/23 Elisha Munroe MD [address] [place] [address] Surgeon NEUROLOGICAL SURGERY 11/14/21 Chu Varner MD [address] [place] [address] Consulting Physician INTERVENTIONAL CARDIOLOGY 04/16/22 08/12/24 Mina Hutchins MD [address] [place] [address] Consulting Physician INTERVENTIONAL CARDIOLOGY 04/23/22 12/06/24 Stanton Valenzuela MD [address] [place] [address] Consulting Physician CLINICAL CARDIAC ELECTROPHYSIOLOGY 05/02/22 Samreen Liu PA-C [address] [place] [address] Referring Physician PHYSICIAN CLINICAL LAB SCIENTIST 05/28/23 Cabrera Mary MD [address] [place] [address] Consulting Physician CARDIOVASCULAR DISEASE 10/23/23 Antoinette Atkins MD [address] [address] Internal Medicine - Infectious Disease 10/30/23 10/29/24 [place] [address] [phone] Surgeon WOUND CARE 10/30/23 10/29/24 Mina Hutchins MD [address] [place] [address] Consulting Physician INTERVENTIONAL CARDIOLOGY 02/11/24 12/06/24 Zoie Parra NP [address] [place] [address] [phone] Nurse Practitioner Nurse Practitioner Family 05/26/24 12/07/24 Franklin Costa DPM [address] [address] Referring Physician PODIATRY/SURGERY 06/03/24 06/03/25 Kyle Torres MD [address] [place] [address] VASCULAR SURGERY 11/12/24 11/12/25 Antoinette Atkins MD [facility] [address] [address] Internal Medicine - Infectious Disease 11/16/24 11/16/25 documented as of this encounter
--- OUTSIDE RECORDS SUMMARY | 2025-06-30 14:28 | XMS_ITS | Clinical Summary ---
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 following with wound team at [place] (see also Osteomyelitis of toes). PAD (peripheral [...] would need either a toe amputation or qrzag-glo-acnw amputation. We will plan for repeat evaluation [...] have an angiogram last year up in [facility] which showed digit disease, despite wound [...] disease invo lving coronary bypass graft of cocopah heart without angina pectoris 04/09/2018 Hyperlipidemia 12/09/2015 [...] Department Care Team Description 06/18/2025 10:30 AM ENROLLMENT SERVICES VICE PRESIDENT Orders Only [facility] Office Building 2 Wound Care [address] [place] [address] 06/04/2025 10:30 AM ENROLLMENT SERVICES VICE PRESIDENT Orders Only [facility] Office Building 2 Wound Care [address] [place] [address] 05/28/2025 10:30 AM CDT Orders Only [facility] Office Building 2 Wound Care [address] [place] [address] 05/28/2025 Orders Only [facility] Surgeon [address] [place] [phone] Maty Kumar, DPM Ulcer of toe, left, with fat layer exposed (HCC) 05/14/2025 10:30 AM CDT Orders Only [facility] Office Building 2 Wound Care [address] [place] [address] 05/14/2025 Orders Only [facility] Surgeon [address] [place] [phone] Maty Kumar, DPM Ulcer of toe, left, with fat layer exposed (HCC) (Primary Dx) 05/07/2025 10:30 AM CDT Orders Only [facility] Building 2 Wound Care [address] [place] [address] 04/30/2025 10:30 AM CDT Orders Only [facility] Office Building 2 Wound Care [address] [place] [address] 04/23/2025 10:30 AM CDT Orders Only [facility] Office Building 2 Wound Care [address] [place] [address] 04/23/2025 Orders Only [facility] Surgeon [address] [place] [phone] Maty Kumar, DPM Ulcer of great toe, left, with fat layer exposed (HCC) (Primary Dx) 04/16/2025 12:46 PM CDT - 04/16/2025 11:59 PM CDT Hospital Encounter [facility] [address] [place] [address], [place] [address] Discharge Disposition: Discharge to home or self care 04/16/2025 12:08 PM CDT - 04/16/2025 11:59 PM CDT Hospital Encounter [facility] [address] [place] [address] 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); Chronic osteomyelitis of toe of right foot (HCC) Discharge Disposition: Discharge to home or self care 04/16/2025 10:30 AM CDT Orders Only [facility] Building 2 Wound Care [address] [place] [address] 04/16/2025 Orders Only [facility] Surgeon [facility] [place] [address] Maty Kumar DPM 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) (Primary Dx); Chronic osteomyelitis of toe of right foot (HCC) 04/14/2025 9:45 AM CDT Office Visit [facility] at [address] [place] [address] Kyle Torres MD PAD (peripheral artery disease) (Primary Dx); Essential hypertension; Mixed hyperlipidemia from Last 3 Months Surgical History Surgery Date Site/Laterality Comments US GUIDED THORACENTESIS 01/13/2021 N/A CORONARY ARTERY BYPASS GRAFT INSERT / REPLACE / REMOVE PACEMAKER CARDIAC CATHETERIZATION 12/31/2024 Right Procedure: RIGHT LOWER EXTREMITY ANGIOGRAM WITH POSSIBLE INTERVENTION; Surgeon: Kyle Torres MD; Location: [facility] CARDIAC COOPERATIVE EXTENSION AGENT; Service: Vascular; Laterality: Right; WITH CO2 & [...] 04/12/2018, 01/24/2018 Medical Devices Implanted Type Area Custodial Worker Device Identifier Shelf Expiration Date Model / Serial / Lot [employer] Vascular System Closure Repair Femoral Artery Suture Mediated Perclose Prostyle 86907-49 - [id number] - [id number] Implanted:Qty: 1 on 12/31/2024 by Kyle Torres MD at [facility] Other - see comments Left: Common Femoral Artery [employer] 10/26/2026 13669-92 / [id number] / [id number] Description:suture Procedures Procedure Name Priority Date/Time Associated [...] Routine 12/31/2024 6:54 AM CDT Atherosclerosis of cocopah artery of right lower extremity with intermittent [...] by Misha Buenrostro M.D. T: Report ID: [id number] Reading Location: [id number] Procedure Note Misha Buenrostro MD - 04/18/2025 [...] by Misha Buenrostro M.D. T: Report ID: [id number] Reading Location: [id number] Maty Kumar DPAlpa IMG XR PROCEDURES Final [...] by Misha Buenrostro M.D. T: Report ID: [id number] Reading Location: [id number] Procedure Note Misha Buenrostro MD - 04/18/2025 [...] by Misha Buenrostro M.D. T: Report ID: [id number] Reading Location: [place] [address] Maty Kumar DPM IMG XR PROCEDURES Final Resu lt * (ABNORMAL) Aerobic and anaerobic culture and gram stain Wound Toe, great, left (04/16/2025 11:25 AMCDT) Direct Specimen Exam Stain: No polymorphonuclear leukocytes seen. No organisms seen. Comment:Testing performed by : [facility], [address] [place]., [address] Report Final Report: Few Mixed skin microorganisms. Rare Juliana albicans (.) UYRI Comment:Testing performed by : [facility], [address] [place]., [address] Organism MIXED SKIN MICROORGANISMS. YURI Organism JULIANA ALBICANS YURI Wound (Toe, great, left) 04/16/2025 11:25 AM CDT 04/16/2025 4:03 PM CDT Narrative YURI - 04/22/2025 2:58 PM CDT Specimen received on an ESwab. Testing performed by [facility] Microbiology Laboratory ([phone]) Specimens submitted from normally sterile body sites [...] GENERAL O RDERABLES Final Result YURI MEZA [address] Department [place] [address] * (ABNORMAL) eGFR (12/31/2024 6:54 AM CDT) [...] MD LAB BLOOD ORDERABLES Final Resul t [facility] [address] Department [place] [address] from Last 3 Months or Most Recently Relevant to Health Maintenance Insurance MEDICARE BLUE CROSS MEDICARE SUPPLEMENT Advance Directives For more information, please contact: [phone] Documents on File Type Date Recorded Patient Bpo Specialist Expl anation Power of Electronic Lab Technician 12/31/2024 6:21 AM * Full Code (Latest Code Status on File) Date Activated Date Inactivated Comments 12/31/2024 9:22 AM 12/31/2024 4:34 PM Care Teams Metal Stamping Machine Operator Relationship Specialty Start Date End Date Scott Dial MD [address] [place] [address] PCP - General Family Medicine 11/12/24
--- OUTSIDE RECORDS SUMMARY | 2025-06-30 14:28 | XMS_ITS | Encounter Summary ---
Author Organization [facility] Address [address] [place] [address] Care Team Providers Care Piercing Specialist Name Role Phone Scott Dial MD Primary Care Provider [phone] Gwendolyn Mcguire MD, Robert Unavailable [phone] Malu Woods ANP-BC Unavailable + [phone] Olinda Felton AGACNP-BC Unavailable [phone] Jess Wiley NP Unavailable Unavailable [facility] MD Unavailable [phone] Chu Varner MD Unavailable [phone] Mina Hutchins MD Unavailable [phone] Stanton Valenzuela MD Unavailable [phone] Samreen Liu PA-C Unavailable +[phone] Cabrera Mary MD Unavailable Antoinette Atkins MD Unavailable [phone] Jesus Abreu MD Unavailable Mina Hutchins MD Unavailable +[phone] Zoie Parra NP Unavailable +[phone] Franklin Costa DPM Unavailable Kyle Torres MD Unavailable Antoinette Atkins MD Unavailable [phone] Encounter Details Date Type Department Care Team (Late st Contact Info) Description 07/12/2022 Abstract [facility] [address] [place] [address] Malu Woods, ANP- [address] [facility] [address] [place] [address] Social History Tobacco Use Types [...] Coronavirus/COVID-19? Unable to assess 06/25/2022 7:59 AM DECK CADET documented as of this encounter Functional Status [...] st Contact Info) Description 07/07/2025 11:00 AM DECK CADET Office Visit [facility] [address] [place] [address] Stanton Valenzuela MD [address] [place] [address] 07/07/2025 11:00 AM DECK CADET Allied Health/Nurse Visit [facility] [address] [place] [phone] Stanton Valenzuela MD [address] [place], [place] [address] [phone] 10/12/2025 2:15 AM CDT Allied Health/Nurse Visit [facility] [address] [place] [phone] Stanton Valenzuela MD [address] [place] [address] 02/07/2026 11:30 AM CDT Office Visit [facility] [address] [place] [phone] Malu Woods, ANP-BC [address] [facility] [address] [place] [address] documented as of this encounter Goals Goal Patient Goal Type Associated Problems Recent Progress Patient-Stated? Author Family - family caregiver with be involved in care transitions and discharge planning General Elena Martinez, RN Safety Patient/family will have appropriate support at home upon discharge General Elena Martinez, fountain dispenser - family caregiver with be involved in [...] LABORATORY Final Re sult * PRO BNP ([facility]) (07/09/2022) PRO-BRAIN NATRIURETIC PEPTIDE 1,900 5 - 100 07/09/2022 Malu Woods ANP-BC LABORATORY Final Re sult documented in this encounter Visit Diagnoses Diagnosis Paroxysmal atrial fibrillation (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) Unspecified hypertensive heart disease with heart failure documented in this encounter Care Teams Piercing Specialist Relationship Specialty Start Date End Date Scott Dial MD [address] [place] [address] PCP - General FAMILY PRACTICE 01/14/18 Melvin Snow MD [address] [place] [address] [place] Ethanol Operations Manager INTERVENTIONAL CARDIOLOGY 01/14/18 05/27/23 Malu Woods, ANP- [address] [facility] [address] [place] [address] CARDIOVASCULAR DISEASE 01/14/18 Olinda Felton AGACNP- [address] [address] CARDIOVASCULAR DISEASE 05/29/18 Jess Wiley NP [address] [address] Nurse Practitioner Electrophysiology 06/13/18 05/27/23 Elisha Munroe MD [address] [place] [address] Surgeon NEUROLOGICAL SURGERY 11/14/21 Chu Varner MD [address] [place] [address] Consulting Physician INTERVENTIONAL CARDIOLOGY 04/16/22 08/12/24 Mina Hutchins MD [address] [place] [address] Consulting Physician INTERVENTIONAL CARDIOLOGY 04/23/22 12/06/24 Stanton Valenzuela MD [address] [place] [address] Consulting Physician CLINICAL CARDIAC ELECTROPHYSIOLOGY 05/02/22 Samreen Liu PA-C [address] [place] [address] Referring Physician PHYSICIAN SERVICE TECHNICIAN COPIER 05/28/23 Cabrera Mary MD [address] [place] [address] [place] [address] Consulting Physician CARDIOVASCULAR DISEASE 10/23/23 Anotinette Atkins MD [address] [phone] Internal Medicine - Infectious Disease 10/30/23 10/29/24 [place] [address] [facility] [address] [place] [address] Surgeon WOUND CARE 10/30/23 10/29/24 Mina Hutchins MD [address] [place] [address] Consulting Physician INTERVENTIONAL CARDIOLOGY 02/11/24 12/06/24 Zoie Parra NP [address] [place] [address] [address] Nurse Practitioner Nurse Practitioner Family 05/26/24 12/07/24 Franklin Costa DPM [address] [place] [address] Referring Physician PODIATRY/SURGERY 06/03/24 06/03/25 Kyle Torres MD [address] [place] [address] VASCULAR SURGERY 11/12/24 11/12/25 Antoinette Atkins MD [address] [place] [address] Internal Medicine - Infectious Disease 11/16/24 11/16/25 documented as of this encounter
--- OUTSIDE RECORDS SUMMARY | 2025-06-30 14:28 | XMS_ITS | Clinical Summary ---
Author Organization [employer] [address] Address [address] [place] [address] Care Team Providers Care Meat Carver Name Role Phone Unavailable Primary Care Provider [...] daily. Active fluticasone propionate (FLONASE) 50 mcg/spray [place], Suspension nasal inhaler Administer 2 Sprays in each nostril daily. Active Active Problems Patient Care Coordination No te Formatting of this note migh t be different from the original. Vascular Care - Dr. Michael Santamaria MD, [facility], [facility] - [address] [facility] [address] Bolaños DPAlpa - [facility] Stanton Valenzuela MD - Assistant Terminal Manager [facility] [place] [address] Problem Noted Date Diagnosed Date Coronary artery disease invo lving [place] coronary artery of [place] heart without angina pectoris 08/21/2023 S/P CABG [...] on file Legal Sex Male 2:41 PM SCIENTIFIC DIRECTOR Gender Identity Not on file Sexual Orientation Not on file Last Filed Vital Signs Vital Sign Reading Time Taken Comments Blood Pressure 130/60 09/26/2023 8:23 AM SCIENTIFIC DIRECTOR Pulse 74 09/26/2023 8:23 AM SCIENTIFIC DIRECTOR Temperature - - Respiratory Rate 18 08/27/2023 10:30 AM SCIENTIFIC DIRECTOR Oxygen Saturation 94% 08/27/2023 9:45 AM SCIENTIFIC DIRECTOR Inhaled Oxygen Concentration - - Weight 98.4 kg (217 lb) 09/26/2023 8:23 AM SCIENTIFIC DIRECTOR Height 177.8 cm (5' 10) 09/26/2023 8:23 AM SCIENTIFIC DIRECTOR Body Mass Index 31.14 09/26/2023 8:23 AM SCIENTIFIC DIRECTOR Plan of Treatment Health Maintenance Due Date [...] , 01/24/2018 Medical Devices Implanted Type Area Erp Pm Device Identifier Shelf Expiration Date Model / Serial / Lot Dev Celt Acd Vasc Closure [facility] [id number] Implanted:Qty: 1 on 08/27/2023 at [facility] Closure Device Groin VASORUM 05/20/2026 [facility]-06 / / [id number] Insurance MEDICARE PART A AND B BCBS SUPP Advance Directives For more information, please contact: [phone] Documents on File Type Date Recorded Patient Organizational Effectiveness Director Expl anation Advance Directive POA 08/21/2023 8:36 AM A dvance Directive POA Care Teams Meat Carver Relationship Specialty Start Date End Date Stanton Valenzuela MD [facility] [address] Consulting Physician Cardiovascular Disease 08/19/23
--- OUTSIDE RECORDS SUMMARY | 2025-06-30 14:28 | XMS_ITS | Encounter Summary ---
Author Organization [facility] Address [address] [place] [address] Care Team Providers Care Water Pumping Station Engineer Name Role Phone Scott Dial MD Primary Care Provider [phone] Olinda Felton [facility]- Unavailable +[phone] Kan-Elisha Blanca MD Unavailable [phone] Chu Varner MD Unavailable +[phone] Mina Hutchins MD Unavailable +[phone] Stanton Valenzuela MD Unavailable +[phone] Samreen Liu PA-C Unavailable +[phone] Cabrera Mary MD Unavailable Antoinette Atkins MD Unavailable [phone] Jesus Abreu MD Unavailable Mina Hutchins MD Unavailable +[phone] Zoie Parra NP Unavailable [phone] Franklin Costa DPM Unavailable Kyle Torres MD Unavailable Antoinette Atkins MD Unavailable [phone] Encounter Details Date Type Department Care Team (Late st Contact Info) Description 03/17/2024 Autogeneration Marketing Message Enc [facility] [address] [place] [address] Mina Hutchins MD [address] [facility], [address] [place] [address] CIELO RANDALL HAS A STAPH INFECTION Social [...] AM CDT Shadia Guajardo RN Active * [place] Suicide Severity Rating Scale (Screener/Recent Self-Report) Question [...] st Contact Info) Description 07/07/2025 11:00 AM VISION CARE ASSOCIATE Office Visit [facility] [place] [address] [place] [address] Stanton Valenzuela MD [address] [place] [address] 07/07/2025 11:00 AM VISION CARE ASSOCIATE Allied Health/Nurse Visit [facility] [place] [address] [place] [address] Stanton Valenzuela MD [address] [place] [address] 10/12/2025 2:15 AM CDT Allied Health/Nurse Visit [facility] [address] [place] [address] Stanton Valenzuela MD [address] [place] [address] 02/07/2026 11:30 AM CDT Office Visit [facility] [place] [address] Malu Woods, [facility]- [address] [facility] [address] [place] [address] documented as of this encounter Goals Goal Patient Goal Type Associated Problems Recent Progress Patient-Stated? Author Family - family caregiver with be involved in care transitions and discharge planning General No Elena Stanley, RN Safety Patient/family will have appropriate support at home upon discharge General No Elena Stanley, soil technician - family caregiver with be involved in care transitions and discharge planning Lifestyle No Dara Hair RN documented as of this encounter Visit Diagnoses Not on filedocumented in this encounter Care Teams Water Pumping Station Engineer Relationship Specialty Start Date End Date Scott Dial MD [address] [place] [address] PCP - General FAMILY PRACTICE 01/14/18 [facility] [address] [place] [address] CARDIOVASCULAR DISEASE 05/29/18 Kan-Elisha Blanca MD [address] [place] [address] Surgeon NEUROLOGICAL SURGERY 11/14/21 Chu Varner MD [address] [place] [address] Consulting Physician INTERVENTIONAL CARDIOLOGY 04/16/22 08/12/24 Mina Hutchins MD [address] [place] [address] Consulting Physician INTERVENTIONAL CARDIOLOGY 04/23/22 12/06/24 Stanton Valenzuela MD [address] [place] [address] Consulting Physician CLINICAL CARDIAC ELECTROPHYSIOLOGY 05/02/22 Samreen Liu PA-C [address] [place] [address] Referring Physician PHYSICIAN PACKAGE LIFT OPERATOR 05/28/23 Cabrera Mary MD [address] [place] [address] [place] [address] Consulting Physician CARDIOVASCULAR DISEASE 10/23/23 Antoinette Atkins MD [address] [phone] Internal Medicine - Infectious Disease 10/30/23 10/29/24 [place] [address] [address] Surgeon WOUND CARE 10/30/23 10/29/24 Mina Hutchins MD [address] [place] [address] Consulting Physician INTERVENTIONAL CARDIOLOGY 02/11/24 12/06/24 Zoie Parra NP [address] [place] [address] [address] [place] [address] Nurse Practitioner Nurse Practitioner Family 05/26/24 12/07/24 Franklin Costa DPM [address] [place] [address] Referring Physician PODIATRY/SURGERY 06/03/24 06/03/25 Kyle Torres MD [address] [place] [address] VASCULAR SURGERY 11/12/24 11/12/25 Antoinette Atkins MD [address] [place] [address] Internal Medicine - Infectious Disease 11/16/24 11/16/25 documented as of this encounter
--- OUTSIDE RECORDS SUMMARY | 2025-06-30 14:28 | XMS_ITS | Encounter Summary ---
Author Organization [facility] Address [address] [place] [address] Care Team Providers Care Enamel Shader Name Role Phone Scott Dial MD Primary Care Provider [phone] Gwendolyn Mcguire MD, Robert Unavailable +[phone] Malu Woods ANP-BC Unavailable + [phone] Olinda Felton AGACNP-BC Unavailable +[phone] Jess Wiley NP Unavailable Unavailable [facility] Blanca MD Unavailable +[phone] Chu Varner MD Unavailable [phone] Mina Hutchins MD Unavailable +[phone] Stanton Valenzuela MD Unavailable +[phone] Samreen Liu PA-C Unavailable +[phone] Cabrera Mary MD Unavailable Antoinette Atkins MD Unavailable [phone] Jesus Abreu MD Unavailable Mina Hutchins MD Unavailable +[phone] Zoie Parra NP Unavailable +[phone] Franklin Costa DPM Unavailable Kyle Torres MD Unavailable Antoinette Atkins MD Unavailable [phone] Encounter Details Date Type Department Care Team (Late st Contact Info) Description 06/29/2022 Abstract [facility] [address] [place] [address] Malu Woods, ANP- [address] [facility] [address] [place] [address] Social History Tobacco Use Types [...] Coronavirus/COVID-19? Unable to assess 06/25/2022 7:59 AM FINANCIAL INVESTIGATOR documented as of this encounter Functional Status [...] st Contact Info) Description 07/07/2025 11:00 AM FINANCIAL INVESTIGATOR Office Visit [facility] [address] [place] [address] Stanton Valenzuela MD [address] [place] [address] 07/07/2025 11:00 AM FINANCIAL INVESTIGATOR Allied Health/Nurse Visit [facility] [address] [place] [phone] Stanton Valenzuela MD [address] [place], [place] [address] [phone] 10/12/2025 2:15 AM CDT Allied Health/Nurse Visit [facility] [place] [address] [place] [address] Stanton Valenzuela MD [address] [place] [address] 02/07/2026 11:30 AM CDT Office Visit [facility] [address] [place] [address] [phone] Malu Woods, ANP-BC [address] [facility] [address] [place] [address] documented as of this encounter Goals Goal Patient Goal Type Associated Problems Recent Progress Patient-Stated? Author Family - family caregiver with be involved in care transitions and discharge planning General No Elena Stanley, RN Safety Patient/family will have appropriate support at home upon discharge General Elena Martinez, director of solutions architecture - family caregiver with be involved in [...] HHS/HCC) documented in this encounter Care Teams Enamel Shader Relationship Specialty Start Date End Date Scott Dial MD [address] [place] [address] PCP - General FAMILY PRACTICE 01/14/18 Melvin Snow MD [address] [place] [phone] [place] Mangle Press Catcher INTERVENTIONAL CARDIOLOGY 01/14/18 05/27/23 Malu Woods ANP- [address] [facility] [address] [place] [address] CARDIOVASCULAR DISEASE 01/14/18 Olinda Felton AGACNP- [address] [address] CARDIOVASCULAR DISEASE 05/29/18 Jess Wiley, CATEGORY MANAGER [address] [address] Nurse Practitioner Electrophysiology 06/13/18 05/27/23 Elisha Munroe MD [address] [place] [address] Surgeon NEUROLOGICAL SURGERY 11/14/21 Chu Varner MD [address] [place] [address] Consulting Physician INTERVENTIONAL CARDIOLOGY 04/16/22 08/12/24 Mina Hutchins MD [address] [place] [address] Consulting Physician INTERVENTIONAL CARDIOLOGY 04/23/22 12/06/24 Stanton Valenzuela MD [address] [place] [address] Consulting Physician CLINICAL CARDIAC ELECTROPHYSIOLOGY 05/02/22 Samreen Liu PA-C [address] [place] [address] Referring Physician PHYSICIAN TESTING AND REGULATING TECHNICIAN 05/28/23 Cabrera Mary MD [address] [place] [address] [place] [address] Consulting Physician CARDIOVASCULAR DISEASE 10/23/23 Antoinette Atkins MD [facility] [address] [phone] Internal Medicine - Infectious Disease 10/30/23 10/29/24 [place] [address] [place] [address] Surgeon WOUND CARE 10/30/23 10/29/24 Mina Hutchins MD [address] [place] [address] Consulting Physician INTERVENTIONAL CARDIOLOGY 02/11/24 12/06/24 Zoie Parra NP [address] [place] [address] Nurse Practitioner Nurse Practitioner Family 05/26/24 12/07/24 Franklin Costa DPM [address] [place] [address] Referring Physician PODIATRY/SURGERY 06/03/24 06/03/25 Kyle Torres MD [address] [place] [address] VASCULAR SURGERY 11/12/24 11/12/25 Antoinette Atkins MD [address] [phone] Internal Medicine - Infectious Disease 11/16/24 11/16/25 documented as of this encounter
--- OUTSIDE RECORDS SUMMARY | 2025-06-30 14:28 | XMS_ITS | Encounter Summary ---
Author Organization [facility] Address [address] [place] [address] Care Team Providers Care Tool And Equipment Rental Clerk Name Role Phone Scott Dial MD Primary Care Provider + [phone] Olinda Felton AGACNP-BC Unavailable [phone] Elisha Munroe MD Unavailable [phone] Stanton Valenzuela MD Unavailable [phone] Samreen Liu PA-C Unavailable [phone] Zoie Parra NP Unavailable [phone] Franklin Costa DPM Unavailable Kyle Torres MD Unavailable Antoinette Atkins MD Unavailable [phone] Encounter Details Date Type Department Care Team (Latest Contact Info) Description 12/07/2024 Connexin Softwaret Message Enc [facility] [address] [place] [address] [facility] Provider hospital follow up call Social History Tobacco Use Types Packs/Day Years Used Date Smoking Tobacco: Former Pipe Q uit: 1970 Smokeless Tobacco: Never Alcohol Use Standard Drinks/Week Comments No 0 (1 standard drink = 0.6 oz pur e alcohol) [facility] Utilities Answer Date Recorded In the [...] any time in the past 12 m [facility], were you homeless or living in a care home (including now)? No 12/04/2024 Sex and Gender [...] st Contact Info) Description 07/07/2025 11:00 AM CANAL EQUIPMENT MAINTENANCE SUPERVISOR Office Visit [facility] [address] [address] Stanton Valenzuela MD [address] [place] [address] 07/07/2025 11:00 AM CANAL EQUIPMENT MAINTENANCE SUPERVISOR Allied Health/Nurse Visit [facility] [place] [address] Stanton Valenzuela MD [address] [place], [place] [address] 10/12/2025 2:15 AM CDT [facility] [address] [place] [address] Stanton Valenzuela MD [address] [place], [place] [address] 02/07/2026 11:30 AM CDT Office Visit [facility] [place] [address] Malu Woods ANP-BC [address] [facility] [address] [place] [address] documented as of this encounter Goals Goal Patient Goal Type Associated Problems Recent Progress Patient-Stated? Author Family - family caregiver with be involved in care transitions and discharge planning General No Elena Stanley, JCARLOS Safety Patient/family will have appropriate support at home upon discharge General No Elena Stanley, manager group - family caregiver with be involved in care transitions and discharge planning Lifestyle No Dara Hair RN documented as of this encounter Visit Diagnoses Not on filedocumented in this encounter Care Teams Tool And Equipment Rental Clerk Relationship Specialty Start Date End Date Scott Dial MD [address] [place] [address] PCP - General FAMILY PRACTICE 01/14/18 Olinda Felton AGACNP- [address] [place] [address] CARDIOVASCULAR DISEASE 05/29/18 Elisha Munroe MD [address] [place] [address] Surgeon NEUROLOGICAL SURGERY 11/14/21 Stanton Valenzuela MD [address] [place] [address] Consulting Physician CLINICAL CARDIAC ELECTROPHYSIOLOGY 05/02/22 Samreen Liu PA-C 9 [place] [address] Referring Physician PHYSICIAN FARM MANAGEMENT ADVISER 05/28/23 Zoie Parra NP [address] [place] [phone] Nurse Practitioner Nurse Practitioner Family 05/26/24 12/07/24 Franklin Costa DPM [address] [place] [address] Referring Physician PODIATRY/SURGERY 06/03/24 06/03/25 Kyle Torres MD [address] [place] [address] [phone] VASCULAR SURGERY 11/12/24 11/12/25 Antoinette Atkins MD [address] [place] [phone] Internal Medicine - Infectious Disease 11/16/24 11/16/25 documented as of this encounter
--- OUTSIDE RECORDS SUMMARY | 2025-06-30 14:28 | XMS_ITS | Encounter Summary ---
Author Organization [facility] Address [address] [place] [address] Care Team Providers Care Joinery Patternmaker Name Role Phone Scott Dial MD Primary Care Provider [phone] Olinda Felton AGACNP-BC Unavailable [phone] Elisha Munroe MD Unavailable [phone] Stanton Valenzuela MD Unavailable + [phone] Samreen Liu PA-C Unavailable + [phone] Zoie Parra NP Unavailable [phone] Franklin Costa DPM Unavailable Kyle Torres MD Unavailable Antoinette Atkins MD Unavailable [phone] Encounter Details Date Type Department Care Team (Late st Contact Info) Description 12/07/2024 Hospital Follow-up Call [facility] Care Unit [address] [place] [address] Yajaira Villa, RN Social History Tobacco Use Types Packs/Day Years Used Date Smoking Tobacco: Former Pipe Q uit: 1970 Smokeless Tobacco: Never Alcohol Use Standard Drinks/Week Comments No 0 (1 standard drink = 0.6 oz pur e alcohol) [facility] Utilities Answer Date Recorded In the past [...] any time in the past 12 m [facility], were you homeless or living in a assisted (including now)? No 12/04/2024 Sex and Gender [...] st Contact Info) Description 07/07/2025 11:00 AM MEDICAL EDITOR Office Visit [facility] [place] [address] Stanton Valenzuela MD [address] [place] [address] 07/07/2025 11:00 AM MEDICAL EDITOR Allied Health/Nurse Visit [facility] [place] [address] Stanton Valenzuela MD [address] [place], [place] [address] 10/12/2025 2:15 AM CDT [facility] [address] [place] [address] Stanton Valenzuela MD [address] [place], [place] [address] 02/07/2026 11:30 AM CDT Office Visit [facility] [place] [address] Malu Woods ANP-BC [address] [facility] [address] [place] [address] documented as of this encounter Goals Goal Patient Goal Type Associated Problems Recent Progress Patient-Stated? Author Family - family caregiver with be involved in care transitions and discharge planning General No Elena Stanley, JCARLOS Safety Patient/family will have appropriate support at home upon discharge General No Elena Stanley, manager of selection and assessment - family caregiver with be involved in care transitions and discharge planning Lifestyle No Dara Hair RN documented as of this encounter Visit Diagnoses Not on filedocumented in this encounter Care Teams Joinery Patternmaker Relationship Specialty Start Date End Date Scott Dial MD [address] [place] [address] PCP - General FAMILY PRACTICE 01/14/18 Olinda Felton AGACNP- [address] [place] [address] CARDIOVASCULAR DISEASE 05/29/18 Elisha Munroe MD [address] [place] [address] Surgeon NEUROLOGICAL SURGERY 11/14/21 Stanton Valenzuela MD [address] [place] [address] Consulting Physician CLINICAL CARDIAC ELECTROPHYSIOLOGY 05/02/22 Samreen Liu PA-C [address] [place] [address] Referring Physician PHYSICIAN DISEASE CASE MANAGER RN 05/28/23 Zoie Parra NP [address] [place] [address] [address] Nurse Practitioner Nurse Practitioner Family 05/26/24 12/07/24 Franklin Costa DPM [address] [place] [address] Referring Physician PODIATRY/SURGERY 06/03/24 06/03/25 Kyle Torres MD [address] [place] [address] [phone] VASCULAR SURGERY 11/12/24 11/12/25 Antoinette Atkins MD [address] [place] [phone] Internal Medicine - Infectious Disease 11/16/24 11/16/25 documented as of this encounter
--- OUTSIDE RECORDS SUMMARY | 2025-06-30 14:29 | XMS_ITS | Encounter Summary ---
Author Organization [facility] Address [address] [place] [address] Care Team Providers Care Embroidery Supervisor Name Role Phone Scott Dial MD Primary Care Provider [phone] Gwendolyn Mcguire MD, Robert Unavailable +[phone] ANP-BC Unavailable + [phone] Romel Santamaria MD Unavailable Unavailable Olinda Felton AGACNP-BC Unavailable +[phone] Niko Byrnes MD Unavailable UnavailJess Salcedo NP Unavailable Unavailable Elisha Munroe MD Unavailable [phone] Chu Varner MD Unavailable [phone] Mina Hutchins MD Unavailable +[phone] Stanton Valenzuela MD Unavailable +[phone] Samreen Liu PA-C Unavailable +[phone] Cabrera Mary MD Unavailable Antoinette Atkins MD Unavailable [phone] Jesus Abreu MD Unavailable Mina Hutchins MD Unavailable +[phone] Zoie Parra NP Unavailable [phone] Kent, Franlkin DPM Unavailable Kyle Torres MD Unavailable Antoinette Atkins MD Unavailable [phone] Encounter Details Date Type Department Care Team (Late st Contact Info) Description 01/19/2019 Abstract [facility] [address] [place] [address] Niko Byrnes MD Social History Tobacco Use [...] st Contact Info) Description 07/07/2025 11:00 AM BREAKER OILER Office Visit [facility] [place] [place] [address] Stanton Valenzuela MD [address] [place] [address] 07/07/2025 11:00 AM BREAKER OILER Allied Health/Nurse Visit [facility] [place] [address] Stanton Valenzuela MD [address] [place] [address] 10/12/2025 2:15 AM CDT [facility] [address] [place] [address] Stanton Valenzuela MD [address] [place] [address] 02/07/2026 11:30 AM CDT Office Visit [facility] [address] [place] [address] Malu Woods ANP-BC [address] [address] documented as of this encounter Visit Diagnoses [...] documented as of this encounter Care Teams Embroidery Supervisor Relationship Specialty Start Date End Date Scott Dial MD [address] [place] [address] PCP - General FAMILY PRACTICE 01/14/18 Melvin Snow MD [address] [place] [address] [place] Customer Service Technician INTERVENTIONAL CARDIOLOGY 01/14/18 05/27/23 Malu Woods, ANP-BC [address] [address] CARDIOVASCULAR DISEASE 01/14/18 Romel Santamaria MD [address] [facility] [address] [place] [address] CARDIOTHORACIC SURGERY 04/10/18 04/15/22 Olinda Felton AGACNP-BC [address] [place] [address] CARDIOVASCULAR DISEASE 05/29/18 Niko Byrnes MD [address] [place] [address] EP Customer Service Technician CLINICAL CARDIAC ELECTROPHYSIOLOGY 06/13/18 04/19/22 Jess Wiley NP [address] [place] [address] Nurse Practitioner Electrophysiology 06/13/18 05/27/23 Elisha Mnuroe MD [address] [place] [address] Surgeon NEUROLOGICAL SURGERY 11/14/21 Chu Varner MD [address] [place] [address] Consulting Physician INTERVENTIONAL CARDIOLOGY 04/16/22 08/12/24 Mina Hutchins MD [address] [place] [address] Consulting Physician INTERVENTIONAL CARDIOLOGY 04/23/22 12/06/24 Stanton Valenzuela MD [address] [place] [address] Consulting Physician CLINICAL CARDIAC ELECTROPHYSIOLOGY 05/02/22 Samreen Liu PA-C [address] [place] [address] Referring Physician PHYSICIAN MACHINE ENGRAVER 05/28/23 Cabrera Mary MD [address] [place] [address] [place] [address] Consulting Physician CARDIOVASCULAR DISEASE 10/23/23 Antoinette Atkins MD [address] [place] [phone] Internal Medicine - Infectious Disease 10/30/23 10/29/24 [place] [address] [phone] Surgeon WOUND CARE 10/30/23 10/29/24 Mina Hutchins MD [address] [place] [address] Consulting Physician INTERVENTIONAL CARDIOLOGY 02/11/24 12/06/24 Zoie Parra NP [address] [place] [address] [phone] Nurse Practitioner Nurse Practitioner Family 05/26/24 12/07/24 Franklin Costa DPM [address] [place] [address] Referring Physician PODIATRY/SURGERY 06/03/24 06/03/25 Kyle Torres MD [facility] [address] [address] VASCULAR SURGERY 11/12/24 11/12/25 Antoinette Atkins MD [address] [phone] Internal Medicine - Infectious Disease 11/16/24 11/16/25 documented as of this encounter
--- OUTSIDE RECORDS SUMMARY | 2025-06-30 14:29 | XMS_ITS | Encounter Summary ---
Author Organization [facility] Address [address] [place] [address] Care Team Providers Care Head Of Partner Development Name Role Phone Scott Dial MD Primary Care Provider + [phone] Gwendolyn Mcguire MD, Robert Unavailable +[phone] Malu Woods ANP-BC Unavailable + [phone] Olinda Felton AGACNP-BC Unavailable +[phone] Niko Byrnes MD Unavailable UnavailJess Salcedo NP Unavailable Unavailable Kan-Elisha Blanca MD Unavailable +[phone] Chu Varner MD Unavailable +[phone] Mina Hutchins MD Unavailable +[phone] Stanton Valenzuela MD Unavailable +[phone] Samreen Liu PA-C Unavailable +[phone] Carbera Mary MD Unavailable Antoinette Atkins MD Unavailable +[phone] Jesus Abreu MD Unavailable Mian Hutchins MD Unavailable +[phone] Zoie Parra NP Unavailable +[phone] Franklin Costa DPM Unavailable Kyle Torres MD Unavailable Antoinette Atkins MD Unavailable [phone] Encounter Details Date Type Department Care Team (Late st Contact Info) Description 04/16/2022 iLoop Mobile Message [facility] [address] [place] [address] Bing, [facility] Provider MitraClip Instructions Social History Tobacco Use [...] AM ERLINDAT Felipa Llamas RN Active * [place] Suicide Severity Rating Scale (Screener/Recent Self-Report) Question [...] st Contact Info) Description 07/07/2025 11:00 AM DUTY ENGINEER Office Visit [facility] [address] [place] [phone] Stanton Valenzuela MD [address] [place], [place] [address] 07/07/2025 11:00 AM DUTY ENGINEER Allied Health/Nurse Visit [facility] [address] [place] [address] Stanton Valenzuela MD [address] [place] [address] 10/12/2025 2:15 AM CDT Allied Health/Nurse Visit [facility] [address] [place] [address] Stanton Valenzuela MD [address] [place], [place] [address] 02/07/2026 11:30 AM CDT Office Visit [facility] [address] [place] [phone] Malu Woods, [facility]- [address] [facility] [address] [place] [address] documented as of this encounter Goals Goal [...] on filedocumented in this encounter Care Teams Head Of Partner Development Relationship Specialty Start Date End Date Scott Dial MD [address] [place] [address] PCP - General FAMILY PRACTICE 01/14/18 Melvin Snow MD [address] [place] [address] Becker Tile Presser INTERVENTIONAL CARDIOLOGY 01/14/18 05/27/23 Malu Woods, ANP-BC 619 [facility] [address]P57 [place] [address] CARDIOVASCULAR DISEASE 01/14/18 Olinda Felton AGACNP- [address] [place] [address] CARDIOVASCULAR DISEASE 05/29/18 Niko Byrnes MD [address] [address] EP Tile Presser CLINICAL CARDIAC ELECTROPHYSIOLOGY 06/13/18 04/19/22 Jess Wiley CAUSTICS LOADER [address] [place] [address] Nurse Practitioner Electrophysiology 06/13/18 05/27/23 Elisha Munroe MD [address] [place] [address] Surgeon NEUROLOGICAL SURGERY 11/14/21 Chu Varner MD [address] [place] [address] Consulting Physician INTERVENTIONAL CARDIOLOGY 04/16/22 08/12/24 Mina Hutchins MD [address] [place] [address] Consulting Physician INTERVENTIONAL CARDIOLOGY 04/23/22 12/06/24 Stanton Valenzuela MD [address] [place] [address] Consulting Physician CLINICAL CARDIAC ELECTROPHYSIOLOGY 05/02/22 Samreen Liu PA-C [address] [place] [address] Referring Physician PHYSICIAN BACTERIOLOGIST FOOD 05/28/23 Cabrera Mary MD [address] [place] [address] Consulting Physician CARDIOVASCULAR DISEASE 10/23/23 Antoinette Atkins MD [address] [phone] Internal Medicine - Infectious Disease 10/30/23 10/29/24 [place] [address] [address] Surgeon WOUND CARE 10/30/23 10/29/24 Mina Hutchins MD [address] [place] [address] Consulting Physician INTERVENTIONAL CARDIOLOGY 02/11/24 12/06/24 Zoie Parra NP [address] [place] [address] Nurse Practitioner Nurse Practitioner Family 05/26/24 12/07/24 Franklin Costa DPM [address] [place] [address] Referring Physician PODIATRY/SURGERY 06/03/24 06/03/25 Kyle Torres MD [address] [place] [address] VASCULAR SURGERY 11/12/24 11/12/25 Antoinette Atkins MD [facility] [address] [phone] Internal Medicine - Infectious Disease 11/16/24 11/16/25 documented as of this encounter
--- OUTSIDE RECORDS SUMMARY | 2025-06-30 14:29 | XMS_ITS | Encounter Summary ---
Author Organization [facility] Address [address] [place] [address] Care Team Providers Care Compressor Assembler Name Role Phone Scott Dial MD Primary Care Provider [phone] Gwendolyn Mcguire MD, Robert Unavailable +[phone] Malu Woods ANP-BC Unavailable + [phone] Romel Santamaria MD Unavailable Unavailable Olidna Felton AGACNP-BC Unavailable +[phone] Niko Byrnes MD Unavailable UnavailJess Salcedo NP Unavailable Unavailable Elisha Munroe MD Unavailable +[phone] Chu Varner MD Unavailable [phone] Mina Hutchins MD Unavailable +[phone] Stanton Valenzuela MD Unavailable +[phone] Samreen Liu PA-C Unavailable +[phone] Cabrera Mary MD Unavailable Antoinette Atkins MD Unavailable [phone] Jesus Abreu MD Unavailable Mina Hutchins MD Unavailable +[phone] Zoie Parra NP Unavailable +[phone] [place], Franklin DPM Unavailable Kyle Torres MD Unavailable Antoinette Atkins MD Unavailable [phone] Encounter Details Date Type Department Care Team (Late st Contact Info) Description 04/14/2019 Abstract [facility] [address] [place] [address] Niko Byrnes MD Social History Tobacco Use [...] st Contact Info) Description 07/07/2025 11:00 AM ONLINE PROJECT MANAGER Office Visit [facility] [address] [place] [address] Stanton Valenzuela MD [address] [place] [address] 07/07/2025 11:00 AM ONLINE PROJECT MANAGER Allied Health/Nurse Visit [facility] [place] [address] Stanton Valenzuela MD [address] [place] [address] 10/12/2025 2:15 AM CDT [facility] [address] [place] [address] Stanton Valenzuela MD [address] [place] [address] 02/07/2026 11:30 AM CDT Office Visit [facility] [address] [place] [address] Malu Woods, ANP-BC [address] [facility] [address] [place] [address] documented as of this encounter Procedures Procedure Name Priority Date/Time Associated Diagnosis Comments COMPREHENSIVE METABOLIC PANEL Routine 04/14/2019 10:22 AM CDT exterminator termite current use of antiarrhythmic drug Current use of exterminator termite anticoagulation THYROXINE, FREE (FT4) Routine 04/14/2019 10:22 AM CDT residential current use of antiarrhythmic drug Current use of fci anticoagulation THYROID STIM HORMONE TSH Routine 04/14/2019 10:22 AM CDT residential current use of antiarrhythmic drug Current use of fci anticoagulation documented in this encounter Results * [...] METABOLIC PANEL (04/14/2019 10:22 AM CDT) Pathologist [facility] SODIUM S/P/B 131(A) 135 - 153 mmol/L [...] documented in this encounter Visit Diagnoses Diagnosis exterminator termite current use of antiarrhythmic drug Current use of fci anticoagulation Encounter for long-term (current) use of [...] documented as of this encounter Care Teams Compressor Assembler Relationship Specialty Start Date End Date Scott Dial MD [address] [place] [address] PCP - General FAMILY PRACTICE 01/14/18 Melvin Snow MD [address] [place] [address] Mcdavid Movie Operator INTERVENTIONAL CARDIOLOGY 01/14/18 05/27/23 Malu Woods, [employer]- [address] [place] [phone] CARDIOVASCULAR DISEASE 01/14/18 Romel Santamaria MD [address] [place] [address] CARDIOTHORACIC SURGERY 04/10/18 04/15/22 Olinda Felton [facility]- [address] [address] CARDIOVASCULAR DISEASE 05/29/18 Niko Byrnes MD [address] [address] EP Movie Operator CLINICAL CARDIAC ELECTROPHYSIOLOGY 06/13/18 04/19/22 Jess [place] NP [address] [address] Nurse Practitioner Electrophysiology 06/13/18 05/27/23 Elisha Munroe MD [address] [place] [address] Surgeon NEUROLOGICAL SURGERY 11/14/21 Chu Varner MD [address] [place] [address] Consulting Physician INTERVENTIONAL CARDIOLOGY 04/16/22 08/12/24 Mina Hutchins MD [address] [place] [address] Consulting Physician INTERVENTIONAL CARDIOLOGY 04/23/22 12/06/24 Stanton Valenzuela MD [address] [place] [address] Consulting Physician CLINICAL CARDIAC ELECTROPHYSIOLOGY 05/02/22 Samreen Liu PA-C [address] [place] [address] Referring Physician PHYSICIAN CLAIMS INVESTIGATOR 05/28/23 Cabrera Mary MD [address] [place] [address] Consulting Physician CARDIOVASCULAR DISEASE 10/23/23 Antoinette Atkins MD [address] [place] [phone] Internal Medicine - Infectious Disease 10/30/23 10/29/24 [place] [address] [phone] Surgeon WOUND CARE 10/30/23 10/29/24 Mina Hutchins MD [address] [place] [address] Consulting Physician INTERVENTIONAL CARDIOLOGY 02/11/24 12/06/24 Zoie Parra NP [address] [place] [address] [phone] Nurse Practitioner Nurse Practitioner Family 05/26/24 12/07/24 Franklin Costa DPM [address] [address] Referring Physician PODIATRY/SURGERY 06/03/24 06/03/25 Kyle Torres MD [address] [place] [address] VASCULAR SURGERY 11/12/24 11/12/25 Antoinette Atkins MD [facility] [address] [address] Internal Medicine - Infectious Disease 11/16/24 11/16/25 documented as of this encounter
--- OUTSIDE RECORDS SUMMARY | 2025-06-30 14:29 | XMS_ITS | Encounter Summary ---
Author Organization [facility] Address [address] [place] [address] Care Team Providers Care Regulatory Affairs Assistant Name Role Phone Scott Dial MD Primary Care Provider + [phone] Gwendolyn Mcguire MD, Robert Unavailable +[phone] Malu Woods ANP-BC Unavailable + [phone] Olinda Felton AGACNP-BC Unavailable +[phone] Niko Byrnes MD Unavailable UnavailJess Salcedo NP Unavailable Unavailable Kan-Elisha Blanca MD Unavailable [phone] Chu Varner MD Unavailable +[phone] Mina Hutchins MD Unavailable +[phone] Stanton Valenzuela MD Unavailable +[phone] Samreen Liu PA-C Unavailable +[phone] Cabrera Mary MD Unavailable Antoinette Atkins MD Unavailable Jesus Abreu MD Unavailable Mina Hutchins MD Unavailable +[phone] Zoie Parra NP Unavailable [phone] Franklin Costa DPM Unavailable Kyle Torres MD Unavailable Antoinette Atkins MD Unavailable [phone] Encounter Details Date Type Department Care Team (Late st Contact Info) Description 04/16/2022 Hospital Orders Only [facility] Anesthesia [address] [place] [address] Courtney Cali RN Anesthesia Record Procedure Summary [...] AM ERLINDAT Felipa Llamas RN Active * [place] Suicide Severity Rating Scale (Screener/Recent Self-Report) Question [...] st Contact Info) Description 07/07/2025 11:00 AM PAPER SAMPLE CLERK Office Visit [facility] [address] [place] [address] Stanton Valenzuela MD [address] [place] [address] 07/07/2025 11:00 AM PAPER SAMPLE CLERK Allied Health/Nurse Visit [facility] [address] [place] [address] Stanton Valenzuela MD [address] [place] [address] 10/12/2025 2:15 AM CDT Allied Health/Nurse Visit [facility] [address] [place] [address] Stanton Valenzuela MD [address] [place] [address] 02/07/2026 11:30 AM CDT Office Visit [facility] [place] [address] Malu Woods ANP-LUCILLE [address] [phone] documented as of this encounter Goals Goal Patient Goal Type Associated Problems Recent Progress Patient-Stated? Author Family - family caregiver with be involved in care transitions and discharge planning Elena Bowers, RN Safety Patient/family will have appropriate support at home upon discharge General Elena Martinez, JCARLOS documented as of this encounter Visit Diagnoses Not on filedocumented in this encounter Care Teams Regulatory Affairs Assistant Relationship Specialty Start Date End Date Scott Dial MD [address] [place] [address] PCP - General FAMILY PRACTICE 01/14/18 Melvin Snow MD [address] [place] [phone] Mobile Nutrition Aides Teacher INTERVENTIONAL CARDIOLOGY 01/14/18 05/27/23 Malu Woods ANP-BC [address] [phone] CARDIOVASCULAR DISEASE 01/14/18 Olinda Felton AGACNP-LUCILLE [address] [phone] CARDIOVASCULAR DISEASE 05/29/18 Niko Byrnes MD [address] [address] EP Nutrition Aides Teacher CLINICAL CARDIAC ELECTROPHYSIOLOGY 06/13/18 04/19/22 Jess [place], DIRECTOR REHABILITATION PROGRAM [address] [place] [address] Nurse Practitioner Electrophysiology 06/13/18 05/27/23 Elisha Munroe MD [address] [place] [address] Surgeon NEUROLOGICAL SURGERY 11/14/21 Chu Varner MD [address] [place] [address] Consulting Physician INTERVENTIONAL CARDIOLOGY 04/16/22 08/12/24 Mina Hutchins MD [address] [place] [address] Consulting Physician INTERVENTIONAL CARDIOLOGY 04/23/22 12/06/24 Stanton Valenzuela MD [address] [place] [address] Consulting Physician CLINICAL CARDIAC ELECTROPHYSIOLOGY 05/02/22 Samreen Liu PA-C [address] [place] [address] Referring Physician PHYSICIAN HIGH SPEED WARPER TENDER 05/28/23 Cabrera Mary MD [address] [place] [address] [place] [address] Consulting Physician CARDIOVASCULAR DISEASE 10/23/23 Antoinette Atkins MD [address] [phone] Internal Medicine - Infectious Disease 10/30/23 10/29/24 [place] [address] [place] [address] Surgeon WOUND CARE 10/30/23 10/29/24 Mina Hutchins MD [address] [place] [address] Consulting Physician INTERVENTIONAL CARDIOLOGY 02/11/24 12/06/24 Zoie Parar NP [address] [place] [address] 4[address] [place] [address] Nurse Practitioner Nurse Practitioner Family 05/26/24 12/07/24 Franklin Costa DPM [address] [place] [address] Referring Physician PODIATRY/SURGERY 06/03/24 06/03/25 Kyle Torres MD [address] [place] [address] VASCULAR SURGERY 11/12/24 11/12/25 Antoinette Atkins MD [address] [place] [phone] Internal Medicine - Infectious Disease 11/16/24 11/16/25 documented as of this encounter
--- OUTSIDE RECORDS SUMMARY | 2025-06-30 14:29 | XMS_ITS | Encounter Summary ---
Author Organization [facility] Address [address] [place] [address] Care Team Providers Care Dry Color Tester Name Role Phone Scott Dial MD Primary Care Provider [phone] Gwendolyn Mcguire MD, Robert Unavailable +[phone] Malu Woods ANP-BC Unavailable + [phone] Romel Santamaria MD Unavailable Unavailable Olinda Felton AGACNP-BC Unavailable +[phone] Niko Byrnes MD Unavailable UnavailJess Salcedo NP Unavailable Unavailable Elisha Munroe MD Unavailable +[phone] Chu Varner MD Unavailable [phone] Mina Hutchins MD Unavailable +[phone] Stanton Valenzuela MD Unavailable +[phone] Samreen Liu PA-C Unavailable +[phone] Cabrera Mary MD Unavailable Antoinette Atkins MD Unavailable Jesus Abreu MD Unavailable Mina Hutchins MD Unavailable +[phone] Zoie Parra NP Unavailable [phone] Julissa Franklin DPM Unavailable Kyle Torres MD Unavailable Antoinette Atkins MD Unavailable [phone] Encounter Details Date Type Department Care Team (Late Contact Info) Description 09/09/2018 Abstract [facility] [address] [place] [address] Melvin Snow MD 602 [facility] [address] [place] [address] Social History Tobacco Use Types [...] Contact Info) Description 07/07/2025 11:00 AM MEDICAL LEGAL INVESTIGATOR Office Visit [facility] [address] [place] [address] Stanton Valenzuela MD [address] [place] [address] 07/07/2025 11:00 AM MEDICAL LEGAL INVESTIGATOR Allied Health/Nurse Visit [facility] [address] [place] [phone] Stanton Valenzuela MD [address] [place] [address] 10/12/2025 2:15 AM CDT [facility] [address] [place] [phone] Stanton Valenzuela MD [address] [place], [place] [address] 02/07/2026 11:30 AM CDT Office Visit [facility] [place] [phone] Malu Woods, ANP-BC [address] [facility] [address] [place] [address] documented as of this encounter [...] documented as of this encounter Care Teams Dry Color Tester Relationship Specialty Start Date End Date Scott Dial MD [address] [place] [address] PCP - General FAMILY PRACTICE 01/14/18 Melvin Snow MD [address] [place] [address] [place] Unclaimed Property Officer INTERVENTIONAL CARDIOLOGY 01/14/18 05/27/23 Malu Woods ANP- [address] [facility] [address] [place] [address] CARDIOVASCULAR DISEASE 01/14/18 Romel Santamaria MD 9 [facility] [address] [place] [address] CARDIOTHORACIC SURGERY 04/10/18 04/15/22 Olinda Felton AGACNP-BC [address] [place] [address] CARDIOVASCULAR DISEASE 05/29/18 Niko Byrnes MD [address] [place] [address] EP Unclaimed Property Officer CLINICAL CARDIAC ELECTROPHYSIOLOGY 06/13/18 04/19/22 Jess [place] NP [address] [place] [address] Nurse Practitioner Electrophysiology 06/13/18 05/27/23 Elisha Munroe MD [address] [place] [address] Surgeon NEUROLOGICAL SURGERY 11/14/21 Chu Varner MD [address] [place] [address] Consulting Physician INTERVENTIONAL CARDIOLOGY 04/16/22 08/12/24 Mina Hutchins MD [address] [place] [address] Consulting Physician INTERVENTIONAL CARDIOLOGY 04/23/22 12/06/24 Stanton Valenzuela MD [address] [place] [address] Consulting Physician CLINICAL CARDIAC ELECTROPHYSIOLOGY 05/02/22 Samreen Liu PA-C [address] [place] [address] Referring Physician PHYSICIAN TAPING FOREMAN 05/28/23 Cabrera Mary MD [address] [place] [address] [place] [address] Consulting Physician CARDIOVASCULAR DISEASE 10/23/23 Antoinette Atkins MD [address] [place] [phone] Internal Medicine - Infectious Disease 10/30/23 10/29/24 [place] [address] [phone] Surgeon WOUND CARE 10/30/23 10/29/24 Mina Hutchins MD [address] [place] [address] Consulting Physician INTERVENTIONAL CARDIOLOGY 02/11/24 12/06/24 Zoie Parra NP [address] [place] [address] [phone] Nurse Practitioner Nurse Practitioner Family 05/26/24 12/07/24 Franklin Costa DPM [address] [place] [address] Referring Physician PODIATRY/SURGERY 06/03/24 06/03/25 Kyle Torres MD [facility] [address] [address] VASCULAR SURGERY 11/12/24 11/12/25 Antoinette Atkins MD [address] [phone] Internal Medicine - Infectious Disease 11/16/24 11/16/25 documented as of this encounter
--- OUTSIDE RECORDS SUMMARY | 2025-06-30 14:29 | XMS_ITS | Encounter Summary ---
Author Organization [facility] Address [address] [place] [address] Care Team Providers Care Hand Ornament Maker Name Role Phone Scott Dial MD Primary Care Provider [phone] Gwendolyn Mcguire MD, Robert Unavailable [phone] Malu Woods ANP-BC Unavailable + [phone] Romel Santamaria MD Unavailable Unavailable Olinda Felton AGACNP-BC Unavailable [phone] Niko Byrnes MD Unavailable UnavailJess Salcedo NP Unavailable Unavailable Elisha Munroe MD Unavailable [phone] Chu Varner MD Unavailable [phone] Mina Hutchins MD Unavailable +[phone] Stanton Valenzuela MD Unavailable [phone] Samreen Liu PA-C Unavailable [phone] Cabrera Mary MD Unavailable Antoinette Atkins MD Unavailable [phone] Jesus Abreu MD Unavailable Mina Hutchins MD Unavailable [phone] Zoie Parra NP Unavailable [phone] JulissaRegic DPM Unavailable Kyle Torres MD Unavailable Antoinette Atkins MD Unavailable [phone] Encounter Details Date Type Department Care Team (Late st Contact Info) Description 02/16/2022 Abstract [facility] [address] [place] [address] Malu Woods, ANP-BC [address] [facility] [address] [place] [address] Social History Tobacco Use Types [...] st Contact Info) Description 07/07/2025 11:00 AM MANAGER IT SECURITY Office Visit [facility] [address] [place] [address] Stanton Valenzuela MD [address] [place] [address] 07/07/2025 11:00 AM MANAGER IT SECURITY Allied Health/Nurse Visit [facility] [address] [place] [address] [phone] Stanton Valenzuela MD [address] [place], [place] [address] 10/12/2025 2:15 AM CDT Allied Health/Nurse Visit [facility] [address] [place] [phone] Stanton Valenzuela MD [address] [place] [address] 02/07/2026 11:30 AM CDT Office Visit [facility] [address] [place] [address] Malu Woods, ANP-BC [address] [facility] [address] [place] [phone] documented as of this encounter Goals Goal [...] on filedocumented in this encounter Care Teams Hand Ornament Maker Relationship Specialty Start Date End Date Scott Dial MD [address] [place] [phone] PCP - General FAMILY PRACTICE 01/14/18 Melvin Snow MD [address] [place] [phone] [place] Water Resources Engineer INTERVENTIONAL CARDIOLOGY 01/14/18 05/27/23 Malu Woods, [facility]- [address] [phone] CARDIOVASCULAR DISEASE 01/14/18 Romel Santamaria MD [address] [address] CARDIOTHORACIC SURGERY 04/10/18 04/15/22 [facility] [address] [address] CARDIOVASCULAR DISEASE 05/29/18 Niko Byrnes MD [address] [address] EP Water Resources Engineer CLINICAL CARDIAC ELECTROPHYSIOLOGY 06/13/18 04/19/22 Jess Wiley NP [address] [address] Nurse Practitioner Electrophysiology 06/13/18 05/27/23 Elisha Munroe MD [address] [place] [address] [phone] Surgeon NEUROLOGICAL SURGERY 11/14/21 Chu Varner MD [address] [place] [address] 475872 Consulting Physician INTERVENTIONAL CARDIOLOGY 04/16/22 08/12/24 Mina Hutchins MD [address] [place] [address] Consulting Physician INTERVENTIONAL CARDIOLOGY 04/23/22 12/06/24 Stanton Valenzuela MD [address] [place] [address] 885801 Consulting Physician CLINICAL CARDIAC ELECTROPHYSIOLOGY 05/02/22 Samreen Liu PA-C [address] [place] [address] 902541 Referring Physician PHYSICIAN ROLLER SKATES ASSEMBLER 05/28/23 Cabrera Mary MD [address] [place] [address] [place], [place] [phone] Consulting Physician CARDIOVASCULAR DISEASE 10/23/23 Antoinette Atkins MD [address] [address] Internal Medicine - Infectious Disease 10/30/23 10/29/24 [place] [address] [facility] [address] [place] [address] Surgeon WOUND CARE 10/30/23 10/29/24 Mina Hutchins MD [address] [place] [address] Consulting Physician INTERVENTIONAL CARDIOLOGY 02/11/24 12/06/24 Zoie Parra NP [address] [place] [address] [phone] Nurse Practitioner Nurse Practitioner Family 05/26/24 12/07/24 Franklin Costa DPM [address] [address] Referring Physician PODIATRY/SURGERY 06/03/24 06/03/25 Kyle Torres MD [address] [place] [address] VASCULAR SURGERY 11/12/24 11/12/25 Antoinette Atkins MD [facility] [phone] Internal Medicine - Infectious Disease 11/16/24 11/16/25 documented as of this encounter
--- OUTSIDE RECORDS SUMMARY | 2025-06-30 14:29 | XMS_ITS | Clinical Summary ---
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 2017 Wound of sternal region 05/29/2018 S/P mitral valve clip implantation 05/15/2018 Coronary artery disease invo 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 04/09/2018 Hx of [...] Type Department Care Team Description 05/25/2025 Telephone [facility] [address] [place] [address] Stanton Valenzuela MD Question 05/25/2025 Telephone [facility] [address] [place] [address] Malu Woods, ANP- Reschedule 04/29/2025 2:15 AM CDT Allied Health/Nurse Visit [facility] [address] [place] [address] tSanton Valenzuela MD 04/09/2025 10:49 AM CDT - 04/09/2025 11:59 PM CDT Hospital Encounter [facility] [place] [address] Cassandra Kee MD Durbin, Theresa M, PA-C Discharge Disposition: Home or Self Care (Routine Discharge) 04/09/2025 Orders Only [facility] [place] [address] Mariana Umana PA-C 04/09/2025 Travel from Last [...] 0.6 oz pur e alcohol) [facility] Utilities Answer Date Recorded In the past 12 months has e [employer], gas, oil, or water [employer] threatened to shut off services in your [...] any time in the past 12 m [facility], were you homeless or living in a correction (including now)? No 12/04/2024 Sex and Gender [...] st Contact Info) Description 07/07/2025 11:00 AM FOOD AND BEVERAGE ATTENDANT Office Visit [facility] [address] [place] [phone] Stanton Valenzuela MD [address] [place], [place] 09[address] [phone] 07/07/2025 11:00 AM FOOD AND BEVERAGE ATTENDANT Allied Health/Nurse Visit [facility] [address] [place] [phone] Stanton Valenzuela MD [address] [place], [place] [address] 10/12/2025 2:15 AM CDT Allied Health/Nurse Visit [facility] [address] [place] [phone] Stanton Valenzuela MD [address] [place], [place] [address]291 02/07/2026 11:30 AM CDT Office Visit [facility] [address] [place] [phone] Malu Woods, ANP-BC [address] [facility] [address] [place] [phone] Health Maintenance Due Date Last Done Comments Diabetes: Retinopathy Eye Exam 1955 DTaP, Tdap and Td Vaccines (1 - Tdap) 1956 Zoster Vaccines (1 of 2) 1987 Annual Medicare Wellness Visit 2002 RSV Immunization or 60+ Years (1 - 1-dose 75+ series) 2012 ASCVD LDL 07/24/2024 07/24/2023, 09/2019, 07/17/2018, Additional history exists Lipid Panel 07/24/2024 07/24/2023, 09/2019, 07/17/2018, Additional history exists PHQ-2 (Physician Ewiiaapaayp) 07/29/2024 Hemoglobin A1C 10/07/2024 04/09/2024, 09/27, 04/04/2018 [...] home upon discharge General No Elena Stanley, personnel research psychologist - family caregiver with be involved in care transitions and discharge planning Lifestyle No Dara Hair RN Medical Devices Implanted Type Area Librarian Head Device Identifier Shelf Expiration Date Model / Serial / Lot Delgadillo Mitraclip Ntw-04/19/2022 Implanted:Qty: 1 on 04/19/2022 by Chu Varner MD Closure Device Heart DELGADILLO VASCULAR 07/12/2022 [id number] / / [id number] Medtronic Rv Lead-04/11/2018 Implanted:04/11 by Niko Byrnes MD (Quantity not on file) Lead Implant Right: Heart [employer] 02/13/2020 5076-58 / [id number] / Medtronic Ra Lead-04/11/2018 Implanted:04/11 by Niko Byrnes MD (Quantity not on file) Lead Implant Right: Heart [employer] 02/27/2020 5076-52 / [id number] / Medtronic Duel Chamber Pacemaker-2017 Implanted:04/11 by Niko Byrnes MD (Quantity not on file) Pacemaker Left: Chest [employer] 04/11/2019 [id number] / [id number] / Description:MRI Conditional under following conditions: [...] Latis; Stlth 5 90mm Mesh Ltxfr - [id number] Implanted:Qty: 1 on 04/09/2018 by Romel Santamaria MD at [facility] [employer] JESSIE 12/09/2022 [id number] / / [id number] Description:Not implanted Atriclip-Flex Tessie Exclusion Atricure 45mm - [id number] Implanted:Qty: 1 on 04/09/2018 by Romel Santamaria MD at [facility] N/A: Heart ATRICURE 11/26/2020 ACH 145 / / [id number] Explanted Type Area Librarian Head Device Identifier Shelf Expiration Date Model / Serial / Lot Patten Watchman Flx-04/19/2022 Implanted:Qty: 1 on 04/19/2022 by Chu Varner MD Explanted:Qty: 1 on 04/20/2022 by Chu Varner MD Closure Device Heart [employer]ARDI[employer]HY 02/27/2025 [id number] / / [id number] Procedures Procedure Name Priority Date/Time Associated Diagnosis [...] - 145 MMOL/L 04/09/2025 11:45 AM CDT [facility] POTASSIUM S/P/B 3.9 3.5 - 5.1 MMOL/L 04/09/2025 11:45 AM CDT [facility] CHLORIDE S/P/B 101 98 - 107 MMOL/L 04/09/2025 11:45 AM CDT [facility] CO2 30.2 21.0 - 32.0 MMOL/L 04/09/2025 11:45 AM CDT [facility] GLUCOSE 116(H) 70 - 99 MG/DL 04/09/2025 11:45 AM CDT [facility] Comment: FASTING GLUCOSE 100 TO 125 MG/DL IS CONSISTENT WITH IMPAIRED FASTING GLUCOSE. FASTING GLUCOSE >125 MG/DL IS CONSISTENT WITH DIABETES. RANDOM GLUCOSE >200 MG/DL WITH HYPERGLYCEMIC SYMPTOMS IS CONSISTENT WITH DIABETES. PER ADA GUIDELINES BUN 20 6 - 24 MG/DL 04/09/2025 11:45 AM CDT [facility] CREATININE S/P/B 1.48(H) 0.70 - 1.30 MG/DL 04/09/2025 11:45 AM CDT [facility] CALCIUM S/P/B 9.0 8.4 - 10.5 MG/DL 04/09/2025 11:45 AM T [facility] ALBUMIN S/P/B 3.3(L) 3.4 - 5.0 G/DL 04/09/2025 11:45 AM CDT [facility] PHOSPHORUS 3.5 2.6 - 4.7 MG/DL 04/09/2025 11:45 AM CDT [facility] ANION GAP 7.8 5.0 - 15.0 MMOL/L 04/09/2025 11:45 AM T [facility] OSMOLALITY (CALC) 292 MOSM/KG 025 11:45 AM T [facility] Comment:REFERENCE RANGE NOT ESTABLISHED GFR ESTIMATE 45(L) >89 ML/MIN/1. 73 M2 04/09/2025 11:45 AM T [facility] GFR NOTES GFR REFERENCE S: 04/09/2025 11:45 AM [facility] Comment: THE ESTIMATED GFR IS [...] Mariana Umana PA-C LABORATORY Final Resu lt [facility] [address] [place] [address], * (ABNORMAL) CBC W/DIFF AUTOMATED (04/09/2025 11:20 AM CDT) WBC 8.43 4.00 - 10.80 x10'3/uL 04/09/2025 11:29 AM CDT [facility] RBC 3.78(L) 4.50 - 6.10 x10'6/uL 04/09/2025 11:29 AM CDT [facility] HGB 12.0(L) 13.0 - 18.0 G/DL 04/09/2025 11:29 AM CDT [facility] HCT 36.1(L) 37.0 - 52.0 % 04/09/2025 11:29 AM CDT [facility] MCV 95.5 78.0 - 100.0 FL 04/09/2025 11:29 AM CDT [facility] MCH 31.7(H) 27.0 - 31.0 PG 04/09/2025 11:29 AM CDT [facility] MCHC 33.2 33.0 - 36.0 G/DL 04/09/2025 11:29 AM CDT [facility] RDW 13.7 11.5 - 14.5 % 04/09/2025 11:29 AM CDT [facility] PLT 181 150 - 350 x10'3/uL 04/09/2025 11:29 AM CDT [facility] MPV 8.8 7.4 - 10.4 FL 04/09/2025 11:29 AM CDT [facility] CBC COMMENT NORMAL REFERENCE RANGE NOT ESTABLISHED FOR THE PROPORTIONAL LEUKOCYTE DIFFERENTIAL. 04/09/2025 11:29 AM CDT [facility] NEUTROPHILS % 61.2 % 04/09/2025 11:29 AM CDT [facility] LYMPHOCYTES % 24.1 % 04/09/2025 11:29 AM CDT [facility] MONOCYTES % 10.4 % 04/09/2025 11:29 AM CDT [facility] EOSINOPHILS % 3.0 % 04/09/2025 11:29 AM CDT [facility] BASOPHILS % 0.9 % 04/09/2025 11:29 AM CDT [facility] IMMATURE GRANS % 0.4 % 04/09/20 11:29 AM CDT [facility] NRBC % 0.0 % 04/09/2025 11:29 AM CDT [facility] ABS. NEUTROPHILS 5.16 1.60 - 8.30 x10'3/uL 04/09/2025 11:29 AM CDT [facility] ABS. LYMPHOCYTES 2.03 0.80 - 4.70 x10'3/uL 04/09/2025 11:29 AM CDT [facility] ABS. MONOCYTES 0.88 0.00 - 1.50 x10'3/uL 04/09/2025 11:29 AM CDT [facility] ABS. EOSINOPHILS 0.25 0.00 - 0.40 x10'3/uL 04/09/2025 11:29 AM CDT [facility] ABS. BASOPHILS 0.08 0.00 - 0.20 x10'3/uL 04/09/2025 11:29 AM CDT [facility] ABS. IMMATURE GRANULOCYTES 0.03 0.00 - 0.03 x10'3/uL 04/09/2025 11:29 AM CDT [facility] ABS. NUCLEATED RBC'S 0.00 0.00 - 0.01 x10'3/uL 04/09/2025 11:29 AM CDT [facility] 04/09/2025 11:2 0 AM CDT us Mariana Umana PA-C LABORATORY Final Resu lt [facility] [address] [place] [address], * ALBUMIN CREATININE URINE RANDOM (04/09/2025 11:12 AM CDT) ALBUMIN (U) 0.2 MG/DL 04/09/2025 11:34 AM CDT [facility] Comment:REFERENCE RANGE NOT ESTABLISHED CREATININE RANDOM (U) 27.0 MG/DL 04/09/2025 11:34 AM CDT [facility] Comment:REFERENCE RANGE NOT ESTABLISHED ALBUMIN/CREAT RATIO 7.4 <30 MG/G 04/09/2025 11:34 AM CDT [facility] Comment: NORMAL TO MILDLY INCREASED ALBUMINURIA: <30 MG/G MODERATELY INCREASED ALBUMINURIA: 30 TO 300 MG/G SEVERELY INCREASED ALBUMINURIA: >300 MG/G PER KDIGO URINE SPECIMEN / Unknown 04/09/2025 11:12 AM CDT Mariana Umana PA-C URINE ORDERABLES Final Res ult Performing Organization Address City/[facility]/ZIP Co de Phone Number [facility] [address] [place] [address], [place] [phone] * HEMOGLOBIN, GLYCOSYLATED (04/09/2024 10:43 AM CDT) HGB A1C 5.4 <5.7 % 04/10/2024 2:06 PM CDT [facility] ESTIMATED AVG GLUCOSE 108 74 - 114 MG/DL 04/10/2024 2:06 PM CDT [facility] 04/09/2024 10:4 3 AM CDT Betzaida Solis NP LABORATORY Final Result [facility] [address] [place] [address], [place] [phone] [id number] * LIPID PANEL (07/24/2023) CHOLESTEROL 149 TRIGLYCERIDES 122 HDL 56 LDL (CALCULATED) 69 CHOL/HDL RATIO 2.7 VLDL CALCULATION 24 N[address]ative [address] Agency Comment CT, [facility] Scott Dial MD LABORATORY Final Result from [...] 9:00 AM 04/04/2018 4:55 PM Care Teams Debone Supervisor Relationship Specialty Start Date End Date cSott Dial MD [address] [place] [address] PCP - General FAMILY PRACTICE 01/14/18 [facility] [address] [address] CARDIOVASCULAR DISEASE 05/29/18 Kan-Elisha Blanca MD [address] [place] [address] Surgeon NEUROLOGICAL SURGERY 11/14/21 Stanton Valenzuela MD [address] [place] [address] Consulting Physician CLINICAL CARDIAC ELECTROPHYSIOLOGY 05/02/22 Samreen Liu PA-C [address] [place] [address] Referring Physician PHYSICIAN MECHANICAL PENCILS ASSEMBLER 05/28/23 Kyle Torres MD [address] [place] [address] VASCULAR SURGERY 11/12/24 11/12/25 Antoinette Atkins MD [facility] [place] [phone] Internal Medicine - Infectious Disease 11/16/24 11/16/25
--- OUTSIDE RECORDS SUMMARY | 2025-06-30 14:29 | XMS_ITS | Encounter Summary ---
Author Organization [facility] Address [address] [place] [address] Care Team Providers Care Electronic Semiconductor Processor Name Role Phone Scott Dial MD Primary Care Provider [phone] Olinda Felton [facility]- Unavailable [phone] Kan-Elisha Blanca MD Unavailable [phone] Chu Varner MD Unavailable [phone] Mina Hutchins MD Unavailable [phone] Stanton Valenzuela MD Unavailable [phone] Samreen Liu PA-C Unavailable [phone] Cabrera Mary MD Unavailable Antoinette Atkins MD Unavailable [phone] Jesus Abreu MD Unavailable Mina Hutchins MD Unavailable [phone] Zoie Parra NP Unavailable [phone] Franklin Costa DPM Unavailable Kyle Torres MD Unavailable Antoinette Atkins MD Unavailable [phone] Encounter Details Date Type Department Care Team (Late st Contact Info) Description 05/07/2024 Talystt Message Enc [facility] [address] [place] [address] Jamila Appiah, ESCORT CAR DRIVER [address] [place] [address] Leg compression for Khanh Randall Social History [...] st Contact Info) Description 07/07/2025 11:[address] RECORDING MONITOR Office Visit [facility] [address] [place] [address] Stanton Valenzuela MD [address] [place] [address] 07/07/2025 11:[address] RECORDING MONITOR Allied Health/Nurse Visit [address] [place] [address] Stanton Valenzuela MD [address] [place], [place] [address] 10/12/2025 2:15 AM CDT Allied Health/Nurse Visit [facility] [address] [place] [address] Stanton Valenuzela MD [address] [place] [address] 02/07/2026 11:30 AM CDT Office Visit [facility] [address] [place] [address] Malu Woods, ANP-BC [address] [facility] [address] [place] [address] documented as of this encounter Goals Goal Patient Goal Type Associated Problems Recent Progress Patient-Stated? Author Family - family caregiver with be involved in care transitions and discharge planning General No Elena Stanley, JCARLOS Safety Patient/family will have appropriate support at home upon discharge General No Elena Stanley, telegraph repeater mechanic - family caregiver with be involved in care transitions and discharge planning Lifestyle No Dara Hair RN documented as of this encounter Visit Diagnoses Not on filedocumented in this encounter Care Teams Electronic Semiconductor Processor Relationship Specialty Start Date End Date Scott Dial MD [address] [place] [address] PCP - General FAMILY PRACTICE 01/14/18 [facility] [address] [address] CARDIOVASCULAR DISEASE 05/29/18 Kan-Elisha Blanca MD [address] [place] [address] Surgeon NEUROLOGICAL SURGERY 11/14/21 Chu Varner MD [address] [place] [address] Consulting Physician INTERVENTIONAL CARDIOLOGY 04/16/22 08/12/24 Mina Hutchins MD [address] [place] [address] Consulting Physician INTERVENTIONAL CARDIOLOGY 04/23/22 12/06/24 Stanton Valenzuela MD [address] [place] [address] Consulting Physician CLINICAL CARDIAC ELECTROPHYSIOLOGY 05/02/22 Samreen Liu PA-C [address] [place] [address] Referring Physician PHYSICIAN SENIOR MILITARY ANALYST 05/28/23 Cabrera Mary MD [address] [place] [address] [place] [address] Consulting Physician CARDIOVASCULAR DISEASE 10/23/23 Antoinette Atkins MD [address] [place] [phone] Internal Medicine - Infectious Disease 10/30/23 10/29/24 [place] [address] [address] Surgeon WOUND CARE 10/30/23 10/29/24 Mina Hutchins MD [address] [place] [address] Consulting Physician INTERVENTIONAL CARDIOLOGY 02/11/24 12/06/24 Zoie aPrra NP [address] [place] [phone] Nurse Practitioner Nurse Practitioner Family 05/26/24 12/07/24 Franklin Costa DPM [address] [place] [address] Referring Physician PODIATRY/SURGERY 06/03/24 06/03/25 Kyle Torres MD [facility] [address] VASCULAR SURGERY 11/12/24 11/12/25 Antoinette Atkins MD [address] [place] [phone] Internal Medicine - Infectious Disease 11/16/24 11/16/25 documented as of this encounter
== END 2025-06-30 14:36 | disposition home or self-care (01) ==
PROVIDERS: Emergency Provider Student in an Organized Health Care Education/Training Program
DX: S83.91XA Sprain of unspecified site of right knee, initial encounter (principal); M17.11 Unilateral primary osteoarthritis, right knee; W07.XXXA Fall from chair, initial encounter; N18.2 Chronic kidney disease, stage 2 (mild); G47.33 Obstructive sleep apnea (adult) (pediatric); E11.22 Type 2 diabetes mellitus with diabetic chronic kidney disease; E78.5 Hyperlipidemia, unspecified; E03.9 Hypothyroidism, unspecified; I48.91 Unspecified atrial fibrillation; I50.9 Heart failure, unspecified; I13.0 Hypertensive heart and chronic kidney disease with heart failure and stage 1 through stage 4 chronic kidney disease, or unspecified chronic kidney disease; I25.10 Atherosclerotic heart disease of native coronary artery without angina pectoris; Z87.891 Personal history of nicotine dependence
CPT/HCPCS: 73562; 96372; 99283; A9270; J1885